=== PATIENT | male | born 1940 | race Caucasian/White ===

== ENCOUNTER → 2017-08-03 11:33 | Outpatient (CLI) | payer MEDICARE, SELFPAY ==
[2017-08-03 13:42] LABS: Basophils # 0.1 K/mm3 (0-0.2); Basophils % 0.6 % (0.1-2.0); Eosinophils # 0.1 K/mm3 (0.0-0.4); Eosinophils % 1.3 % (0.1-12.0); Hematocrit 24.3 % (42.0-52.0); Lymphocytes # 0.4 K/mm3 (0.7-4.5); Mean Corpuscular HGB Conc 31.4 g/dL (31.8-35.4); Mean Corpuscular Hemoglobin 30.5 pg (27.0-31.2); Mean Corpuscular Volume 97.3 fl (80-94); Mean Platelet Volume 7.2 fl (7.4-10.4); Monocytes # 0.5 K/mm3 (0.1-1.0); Monocytes % 5.5 % (1.7-9.3); Neutrophils # 7.7 K/mm3 (1.8-7.8); Neutrophils % 87.6 % (37.0-80.0); Platelet Count 431 K/mm3 (142-424); Red Cell Distribution Width 20.2 % (11.5-17.5); White Blood Count 8.8 K/mm3 (4.8-10.8)
[2017-08-03 13:45] LABS: Hemoglobin 7.6 g/dL (14.1-18.0)
[2017-08-03 13:46] LABS: MANUAL DIFFERENTIAL MANUAL DIFFERENTIAL (MANUAL DIFF)
[2017-08-03 15:37] LABS: Lymphocytes % 2 % (10-50); Monocytes % 13 % (2-9); Neutrophils % 82 % (42-76); Total Cells Counted 100
[2017-08-03 15:41] LABS: Anisocytosis 2+; Hypochromasia 1+; Macrocytosis 1+; Platelet Estimate Slight Increase
[2017-08-03 16:42] LABS: Alanine Aminotransferase 24 U/L (12-78); Albumin/Globulin Ratio 0.8 (1.1-1.8); Alkaline Phosphatase 162 U/L (46-116); Anion Gap 11.6 mEq/L (5-15); Aspartate Amino Transferase 24 U/L (15-37); Bilirubin,Total 0.4 mg/dL (0.2-1.0); Blood Urea Nitrogen 23 mg/dL (7-18); Calcium 7.5 mg/dL (8.5-10.1); Carbon Dioxide 23 mmol/L (21.0-32.0); Chloride 102 mmol/L (98-107); Creatinine,Serum 1.55 mg/dL (0.70-1.30); Estimated Glomerular Filt Rate 44 ml/min (>60); GFR (African American) 53 ML/MIN (>60); Globulin 2.4 gm/dl (1.3-3.2); Glucose 157 mg/dL (74-106); Potassium 4.6 mmoL/L (3.5-5.1); Sodium 132 mmol/L (136-145); Total Protein,Serum 4.4 gm/dL (6.4-8.2)
== END ==
PROVIDERS: PCP Internal Medicine Adolescent Medicine; Visit Provider Internal Medicine Adolescent Medicine
DX: R42 Dizziness and giddiness (principal)
CPT/HCPCS: 36415; 80053; 85007; 85025

== ENCOUNTER → 2017-08-04 08:30 | Outpatient (CLI) | payer MEDICARE, SELFPAY ==
[2017-08-04] VITALS (20 sets, daily range): BP systolic 87–106; BP diastolic 43–61; PULSE 67–78; RESP 12–72; TEMP 36.1–36.9; O2SAT 97–98; BMI 23.5
--- NOTE | 2017-08-04 17:06 | PC.NURSE ---
Blood Administration Vital Signs Start 1430 5 minutes 1435 10 minutes 1440 15 minutes 1445 30 minutes 1500 45 minutes 1515 60 minutes 1530 Completion 1600 See vital signs assessment for blood administration vital signs. Records would not save to TAR. per Elfego MENDOZA
[2017-08-04 17:07] LABS: Hematocrit 26.1 % (42.0-52.0); Hemoglobin 8.3 g/dL (14.1-18.0)
--- NOTE | 2017-08-04 17:14 | PC.NURSE ---
Documented all the vitals signs on the first unit. I did not go into the tar and push the end button to end the first unit of blood. Verified the second unit with Adelaida Zambrano. Then started to document the vitals on the second unit. Was able to put in pre and all the first hour of the vitals of the second unit. I then noticed that it did not save the verification on that second unit. i then verified for the second and then again a third time and the verfication never saved. Also noted that the pre and vitals 5 thru one hour were placed also on the first unit vitals as well as listed under the second unit where i documented that.
== END ==
PROVIDERS: PCP Internal Medicine Adolescent Medicine; Visit Provider Nurse Practitioner Family
DX: C85.93 Non-Hodgkin lymphoma, unspecified, intra-abdominal lymph nodes; D63.0 Anemia in neoplastic disease
CPT/HCPCS: 36430; 85014; 85018; 86850; P9016

== ENCOUNTER → 2017-08-16 10:08 | Outpatient (CLI) | payer MEDICARE, SELFPAY ==
[2017-08-16 13:29] LABS: Alanine Aminotransferase 21 U/L (12-78); Albumin Level 2.3 gm/dL (3.4-5.0); Albumin/Globulin Ratio 0.9 (1.1-1.8); Alkaline Phosphatase 168 U/L (46-116); Anion Gap 14.9 mEq/L (5-15); Aspartate Amino Transferase 24 U/L (15-37); Bilirubin,Total 0.4 mg/dL (0.2-1.0); Blood Urea Nitrogen 36 mg/dL (7-18); Calcium 7.9 mg/dL (8.5-10.1); Carbon Dioxide 20 mmol/L (21.0-32.0); Chloride 103 mmol/L (98-107); Creatinine,Serum 1.72 mg/dL (0.70-1.30); Estimated Glomerular Filt Rate 39 ml/min (>60); GFR (African American) 47 ML/MIN (>60); Globulin 2.5 gm/dl (1.3-3.2); Glucose 241 mg/dL (74-106); Potassium 3.9 mmoL/L (3.5-5.1); Sodium 134 mmol/L (136-145); Total Protein,Serum 4.8 gm/dL (6.4-8.2)
[2017-08-16 13:30] LABS: Basophils % 0.4 % (0.1-2.0); Eosinophils # 0.1 K/mm3 (0.0-0.4); Eosinophils % 2.3 % (0.1-12.0); Hematocrit 26.6 % (42.0-52.0); Hemoglobin 8.3 g/dL (14.1-18.0); Lymphocytes # 0.8 K/mm3 (0.7-4.5); Lymphocytes % 14.3 K/mm3 (10-50); Mean Corpuscular HGB Conc 31.1 g/dL (31.8-35.4); Mean Corpuscular Hemoglobin 30.8 pg (27.0-31.2); Mean Platelet Volume 7.6 fl (7.4-10.4); Monocytes # 0.5 K/mm3 (0.1-1.0); Monocytes % 8.8 % (1.7-9.3); Neutrophils # 4.2 K/mm3 (1.8-7.8); Neutrophils % 74.2 % (37.0-80.0); Platelet Count 298 K/mm3 (142-424); Red Blood Count 2.69 M/mm3 (4.60-6.20); Red Cell Distribution Width 18.3 % (11.5-17.5); White Blood Count 5.7 K/mm3 (4.8-10.8)
== END ==
PROVIDERS: PCP Nurse Practitioner Family; Visit Provider Nurse Practitioner Family
DX: R42 Dizziness and giddiness (principal); R06.02 Shortness of breath
CPT/HCPCS: 36415; 80053; 85025

== ENCOUNTER 2017-08-17 08:30 | Outpatient (CLI) | payer MEDICARE, SELFPAY ==
[2017-08-17] VITALS (19 sets, daily range): BP systolic 91–118; BP diastolic 44–58; PULSE 75–88; RESP 18–20; TEMP 36.7–36.8; O2SAT 97–98; BMI 23.5
== END 2017-08-17 15:40 | disposition home or self-care (01) ==
PROVIDERS: PCP Internal Medicine Adolescent Medicine; Visit Provider Nurse Practitioner Family
DX: D64.9 Anemia, unspecified (principal)
CPT/HCPCS: 36430; 85014; 85018; 86850; P9016

== ENCOUNTER 2017-08-24 07:15 | Day surgery (SDC) | payer MEDICARE, SELFPAY ==
[2017-08-17 08:41] VITALS: BMI 23.5
[2017-08-23 11:07] VITALS: BMI 23.8
[2017-08-24 07:46] VITALS: BP 99/66; PULSE 65; RESP 18; TEMP 36.4; O2SAT 99
[2017-08-24 08:00] LABS: POC Glucose,Bedside 140 mg/dL
--- NOTE | 2017-08-24 08:14 | HMH.ANESCL ---
[facility] Anesthesia Checklist - Patient Identification Patient Identification: Arm Band, Verbal (Name & ) - Structural Data Admitted From: Home Planned Operative Procedure/s: excision lession nose, ear Consent for Planned Operative Procedure(s) Verified: Yes Verified Documents: Surgical Consent - NPO Status Verified Time NPO: 00:00 - Chart Verification Results Verified: CBC, BMP - Additional verifications Patient : No Anesthesia Reactions: No Hx Blood Transfusions: No Blood Transfusion Reaction: No Cephalosporin Allergy: No Previous Colonoscopy: No - Cardiovascular Assessment Heart Sounds: S1 & S2 Pulse Strength: Strong Pulse Rhythm: Regular Peripheral Edema: No - Airway Assessment C-Spine Mobility Assessed: Yes TMJ Mobility Assessed: Yes Dentition: Edentulous - Neurological Assessment Level of Consciousness: Awake, Alert, Appropriate Hx Seizures: No Numbness or tingling in extremities: No - Anesthesia Plan Anesthesia Risk discussed: Yes ASA Class: III Anesthesia Type: MAC [facility] Anesthesia HX I have reviewed the patient's past medical history: Yes Medical History: Reports:: Cancer (Lymphoma), Coronary Artery Disease, Diabetes Mellitus Type 2, Gastroesophageal Reflux Disease(GERD), Hyperlipidemia, Myocardial Infarction, Osteoporosis Denies:: Diabetes Mellitus Type 1, Internal Pacemaker, Seizures Other Medical History: Reports: Chemotherapy, Osteoporosis. Denies: Blood Transfusion Reaction Laterality Cases: Left: Arthroscopy Knee, Bilateral: Other Other Surgeries: Yes: Cancer Surgery, Colonoscopy, Coronary Stent, Other. No: Pacemaker Amputation: No Fractures: No Comment: knee scope *Family Hx:: Coronary Artery Disease, Cancer, Heart Attack, Hypertension
[2017-08-24 10:00] VITALS: BP 92/53; PULSE 70; RESP 18; TEMP 36.6; O2SAT 99
[2017-08-24 10:15] VITALS: BP 100/57; PULSE 66; RESP 18; TEMP 36.6; O2SAT 100
[2017-08-24 10:30] VITALS: BP 107/56; PULSE 60; RESP 18; TEMP 36.6; O2SAT 99
[2017-08-24 10:40] VITALS: BP 105/57; PULSE 64; RESP 18; TEMP 36.6; O2SAT 100
--- NOTE | 2017-08-24 14:00 | HMH.OPNOTE ---
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 2. Excision of Malignant neoplasm upper nose 3. Cryo Surgery actinic keratosis left ear Surgeon:: Jim Gomez MD [employer]CH MANAGER:: Sheldon Degroot Anesthesia: MAC Estimated blood loss (mL): 2 Operative findings:: With the patient under MAC type anesthesia the face was prepped and draped, the perilesional areas on the nose and left ear were infiltrated with a total of 5 cc of 2% lidocaine containing epinephrine. The lesion on the upper part of the nose was marked out it measured 2.9 cm. The markup was incised the lesion was excised and submitted, anterior and inferior incisions were made, flaps were elevated and the tissue rearrangement was done with interrupted 4-0 nylon sutures. Bleeding was stopped with bipolar cautery. The lesion the lower part of the nose was marked out it measured 1.5 cm. The Markup was incised and the lesion was excised and submitted. Tissue rearrangement Z-plasty repair was done with interrupted 4-0 nylon sutures after flaps were developed.. The lesion on the left ear had the appearance of an actinic keratosis. It measured 2.5 cm. The lesion was totally ablated using cryo surgery. Dressings were applied and the patient was sent to recovery in good general condition. Pathology: other (as above) Condition: stable Disposition: same day Complications:: none
--- NOTE | 2017-08-24 14:05 | P.OP_ITS ---
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 2. Excision of Malignant neoplasm upper nose 3. Cryo Surgery actinic keratosis left ear Surgeon:: Jim Gomez MD [employer] LOAN PROCESSOR:: Sheldon Degroot Anesthesia: MAC Estimated blood loss (mL): 2 Operative findings:: With the patient under MAC type anesthesia the face was prepped and draped, the perilesional areas on the nose and left ear were infiltrated with a total of 5 cc of 2% lidocaine containing epinephrine. The lesion on the upper part of the nose was marked out it measured 2.9 cm. The markup was incised the lesion was excised and submitted, anterior and inferior incisions were made, flaps were elevated and the tissue rearrangement was done with interrupted 4-0 nylon sutures. Bleeding was stopped with bipolar cautery. The lesion the lower part of the nose was marked out it measured 1.5 cm. The Markup was incised and the lesion was excised and submitted. Tissue rearrangement Z-plasty repair was done with interrupted 4-0 nylon sutures after flaps were developed.. The lesion on the left ear had the appearance of an actinic keratosis. It measured 2.5 cm. The lesion was totally ablated using cryo surgery. Dressings were applied and the patient was sent to recovery in good general condition. Pathology: other (as above) Condition: stable Disposition: same day Complications:: none
== END 2017-08-24 10:40 | disposition home or self-care (01) ==
LOC: OR 07:22
PROVIDERS: PCP Internal Medicine Adolescent Medicine; Visit Provider Otolaryngology
PROC: (CPT 14040; principal; 2017-08-24 09:00)
DX: C44.321 Squamous cell carcinoma of skin of nose (principal); E11.9 Type 2 diabetes mellitus without complications
CPT/HCPCS: 14040; 14060; 82962; 88305; 96374

== ENCOUNTER 2017-09-08 20:55 | Inpatient (IN) | payer MEDICARE, SELFPAY ==
[2017-09-08 21:00] VITALS: BP 121/83; PULSE 91; RESP 22; TEMP 37.3; O2SAT 95; BMI 26.7
--- NOTE | 2017-09-08 21:35 | XR_ITS ---
XR chest 2V HISTORY: ITS.REASON: SOB ORDERING PHYSICIAN: Edilberto Rivera MD PATIENT AGE: 77 years COMPARISON: 04/27/2017 FINDINGS: The cardiomediastinal silhouette and pulmonary vascularity are within normal limits. There is coronary artery stent present and there are surgical clips in right axilla There is been interval development of diffuse prominence of the interstitium with patchy alveolar density in both lower lobes. There are small bilateral pleural effusions. No acute bony abnormalities. IMPRESSION: Interval development of diffuse prominence of the interstitium with patchy alveolar disease and small bilateral effusions in the setting of a normal heart size suggesting bilateral pneumonia. Acute cardiac decompensation or acute volume overload is an additional consideration.
[2017-09-08 21:40] LABS: Basophils % 0.3 % (0.1-2.0); Eosinophils # 0.1 K/mm3 (0.0-0.4); Eosinophils % 2.3 % (0.1-12.0); Hemoglobin 9.5 g/dL (14.1-18.0); Lymphocytes # 0.6 K/mm3 (0.7-4.5); Lymphocytes % 11.4 K/mm3 (10-50); Mean Corpuscular HGB Conc 31.9 g/dL (31.8-35.4); Mean Corpuscular Hemoglobin 30.7 pg (27.0-31.2); Mean Corpuscular Volume 96.2 fl (80-94); Mean Platelet Volume 7.6 fl (7.4-10.4); Monocytes # 0.4 K/mm3 (0.1-1.0); Monocytes % 7.7 % (1.7-9.3); Neutrophils # 3.9 K/mm3 (1.8-7.8); Neutrophils % 78.4 % (37.0-80.0); Platelet Count 274 K/mm3 (142-424); Red Blood Count 3.08 M/mm3 (4.60-6.20); Red Cell Distribution Width 16.6 % (11.5-17.5)
[2017-09-08 21:42] LABS: Hematocrit 29.7 % (42.0-52.0)
[2017-09-08 21:52] LABS: Lactic Acid 1.2 mmol/L (0.4-2.0)
[2017-09-08 22:08] LABS: Anion Gap 13.1 mEq/L (5-15); Blood Urea Nitrogen 19 mg/dL (7-18); Carbon Dioxide 26 mmol/L (21.0-32.0); Chloride 102 mmol/L (98-107); Creatine Kinase 87 U/L (39-308); Creatinine Clearance Estimated 49 mL/min (0-300); Creatinine,Serum 1.45 mg/dL (0.70-1.30); Estimated Glomerular Filt Rate 47 ml/min (>60); GFR (African American) 57 ML/MIN (>60); Glucose 149 mg/dL (74-106); Potassium 4.1 mmoL/L (3.5-5.1); Sodium 137 mmol/L (136-145); Troponin I 0.08 ng/ml (0.00-0.06)
[2017-09-08 22:09] LABS: CKMB Relative Index 0.6 U/L (0-4.0); Creatine Kinase MB < 0.5 mg/ml (0.0-3.6)
[2017-09-08 22:27] VITALS: BP 94/57; PULSE 90; RESP 16; O2SAT 95
--- NOTE | 2017-09-08 22:31 | HMH.EDSOB ---
ED Disposition Clinical Impression: Renal insufficiency Community acquired pneumonia Qualifiers: Laterality: unspecified laterality Qualified Code(s): J18.9 - Pneumonia, unspecified organism Anemia Qualifiers: Anemia type: unspecified type Qualified Code(s): D64.9 - Anemia, unspecified Disposition: Admitted as Observation Condition on Discharge: Good Referrals: Jose Ramon Mejias MD [Primary Care Provider] - - Critical Care Critical Care Time: No Attestation: On 09/08/17, the high probability of a clinically significant, sudden or life threatening deterioration of the following system(s) required my full and direct attention, intervention and personal management. The time I documented below is in addition to time spent performing reported procedures but includes the following listed in this critical care notation. Medical Decision Making - Medical Records Medical records reviewed: Yes: I reviewed the patient's medical records. Vital Signs: 09/08/17 21:00 Temperature 99.2 F Temperature Source Oral Pulse Rate [Right Radial] 91 H Respiratory Rate 22 Blood Pressure [Right Arm] 121/83 Blood Pressure Mean [Right Arm] 95 Blood Pressure Source [Right Arm] Automatic Cuff Blood Pressure Position [Right Arm] Sitting 02 Sat by Pulse Oximetry 95 Oxygen Delivery Method Room Air - Lab Data Lab results reviewed: Yes: I reviewed the patient's lab results. Lab Results 09/08/17 21:15: WBC 5.0, RBC 3.08 L, Hgb 9.5 L, Hct 29.7 L, MCV 96.2 H, MCH 30.7, MCHC 31.9, RDW 16.6, Plt Count 274, MPV 7.6, Neut % (Auto) 78.4, Lymph % (Auto) 11.4, [place] % (Auto) 7.7, Eos % (Auto) 2.3, Baso % (Auto) 0.3, Neut # (Auto) 3.9, Lymph # (Auto) 0.6 L, [place] # (Auto) 0.4, Eos # (Auto) 0.1, Baso # (Auto) 0.0 09/08/17 21:15: Sodium 137, Potassium 4.1, Chloride 102, Carbon Dioxide 26, Anion Gap 13.1, BUN 19 H, Creatinine 1.45 H, Estimated Creat Clear 49, Estimated GFR 47 L, Est GFR ( Amer) 57 L, Glucose 149 H, Total Creatine Kinase 87, CK-MB (CK-2) < 0.5, CK-MB (CK-2) Rel Index 0.6, Troponin I 0.08 H 09/08/17 21:15: Lactic Acid 1.2 Result diagrams: 09/08/17 21:15 09/08/17 21:15 Orders (Tests/Meds): ED MEDICATIONS Discontinued Medications Generic Name Dose Route Start Last Admin Trade Name Janett PRN Reason Stop Dose Admin Albuterol/Ipratropium 3 ml 09/08/17 21:16 09/08/17 21:18 Duoneb 3ml Neb IH 09/08/17 21:17 3 ml ONCE ONE Administration Methylprednisolone Sodium Succinate 125 mg 09/08/17 21:13 09/08/17 21:18 Solu-Medrol 125mg/2ml Vial IV 09/08/17 21:14 125 mg ONCE ONE Administration ORDERS Category Date Time Status XR chest 2V Stat Exams 09/08/17 21:35 Taken Blood Culture Stat Micro 09/08/17 21:15 Received - Radiology Data #1 Image(s): Chest Image Reviewed: Yes I reviewed the patient's radiology image Preliminary Findings: Abnormal (cap) - ECG Data Tracing #1 I reviewed this ECG and interpreted as documented below: Normal Sinus Rhythm: Yes Ischemic changes: non-specific ST-T wave changes - [place] Inquiry Pt receiving controlled substance: No Resp/SOB HPI - General Chief Complaint: Shortness of Breath/Dyspnea Stated Complaint: SOB Time Seen by Provider: 09/08/17 22:31 Mode of Arrival: Ambulatory Source of Information: Patient, Medical Record Limitations: No Limitations Description of Symptoms (Recalled from ER Triage Doc. by RN): started this afternoon with sob and wheezing, cough, right chest pain - History of Present Illness MD Complaint: shortness of breath, pain with inspiration Onset (ago): day(s) Severity: moderate Consistency/Duration: intermittent - Related Data Home Medications Medication Instructions Recorded Confirmed Aspirin [Aspir 81] 81 mg PO DAILY 08/04/17 09/08/17 Atorvastatin Calcium [Atorvastatin 80 mg PO HS 08/04/17 09/08/17 80mg Tab] Gabapentin [Gabapentin 300mg Cap] 300 mg PO TID 08/04/17 09/08/17 Ondansetron HCl
--- NOTE | 2017-09-08 22:37 | ED_ITS ---
ED Disposition Clinical Impression: Renal insufficiency Community acquired pneumonia Qualifiers: Laterality: unspecified laterality Qualified Code(s): J18.9 - Pneumonia, unspecified organism Anemia Qualifiers: Anemia type: unspecified type Qualified Code(s): D64.9 - Anemia, unspecified Disposition: Admitted as Observation Condition on Discharge: Good Referrals: Jose Ramon Mejias MD [Primary Care Provider] - - Critical Care Critical Care Time: No Attestation: On 09/08/17, the high probability of a clinically significant, sudden or life threatening deterioration of the following system(s) required my full and direct attention, intervention and personal management. The time I documented below is in addition to time spent performing reported procedures but includes the following listed in this critical care notation. Medical Decision Making - Medical Records Medical records reviewed: Yes: I reviewed the patient's medical records. Vital Signs: 09/08/17 21:00 Temperature 99.2 F Temperature Source Oral Pulse Rate [Right Radial] 91 H Respiratory Rate 22 Blood Pressure [Right Arm] 121/83 Blood Pressure Mean [Right Arm] 95 Blood Pressure Source [Right Arm] Automatic Cuff Blood Pressure Position [Right Arm] Sitting 02 Sat by Pulse Oximetry 95 Oxygen Delivery Method Room Air - Lab Data Lab results reviewed: Yes: I reviewed the patient's lab results. Lab Results 09/08/17 21:15: WBC 5.0, RBC 3.08 L, Hgb 9.5 L, Hct 29.7 L, MCV 96.2 H, MCH 30.7 , MCHC 31.9, RDW 16.6, Plt Count 274, MPV 7.6, Neut % (Auto) 78.4, Lymph % (Auto ) 11.4, [place] % (Auto) 7.7, Eos % (Auto) 2.3, Baso % (Auto) 0.3, Neut # (Auto) 3.9, Lymph # (Auto) 0.6 L, [place] # (Auto) 0.4, Eos # (Auto) 0.1, Baso # (Auto) 0.0 09/08/17 21:15: Sodium 137, Potassium 4.1, Chloride 102, Carbon Dioxide 26, Anion Gap 13.1, BUN 19 H, Creatinine 1.45 H, Estimated Creat Clear 49, Estimated GFR 47 L, Est GFR ( Amer) 57 L, Glucose 149 H, Total Creatine Kinase 87, CK-MB (CK-2) < 0.5, CK-MB (CK-2) Rel Index 0.6, Troponin I 0.08 H 09/08/17 21:15: Lactic Acid 1.2 Result diagrams: 09/08/17 21:15 09/08/17 21:15 Orders (Tests/Meds): ED MEDICATIONS Discontinued Medications Generic Name Dose Route Start Last Admin Trade Name Freq PRN Reason Stop Dose Admin Albuterol/Ipratropium 3 ml 09/08/17 21:16 09/08/17 21:18 Duoneb 3ml Neb IH 09/08/17 21:17 3 ml ONCE ONE Administration Methylprednisolone Sodium Succinate 125 mg 09/08/17 21:13 09/08/17 21:18 Solu-Medrol 125mg/2ml Vial IV 09/08/17 21:14 125 mg ONCE ONE Administration ORDERS Category Date Time Status XR chest 2V Stat Exams 09/08/17 21:35 Taken Blood Culture Stat Micro 09/08/17 21:15 Received - Radiology Data #1 Image(s): Chest Image Reviewed: Yes I reviewed the patient's radiology image Preliminary Findings: Abnormal (cap) - ECG Data Tracing #1 I reviewed this ECG and interpreted as documented below: Normal Sinus Rhythm: Yes Ischemic changes: non-specific ST-T wave changes - [place] Inquiry Pt receiving controlled substance: No Resp/SOB HPI - General Chief Complaint: Shortness of Breath/Dyspnea Stated Complaint: SOB Time Seen by Provider: 09/08/17 22:31 Mode of Arrival: Ambulatory
[2017-09-08 23:38] VITALS: PULSE 86; O2SAT 96
[2017-09-08 23:51] VITALS: BP 110/81; PULSE 85; RESP 20; TEMP 37.2; O2SAT 96
[2017-09-09] VITALS (10 sets, daily range): BP systolic 107–127; BP diastolic 53–75; PULSE 77–98; RESP 20–22; TEMP 36.2–37; O2SAT 93–97; BMI 25.3
[2017-09-09 06:35] LABS: POC Glucose,Bedside 280 mg/dL
[2017-09-09 06:56] LABS: Eosinophils % 0.2 % (0.1-12.0); Hematocrit 29.4 % (42.0-52.0); Hemoglobin 9.3 g/dL (14.1-18.0); Lymphocytes # 0.2 K/mm3 (0.7-4.5); Lymphocytes % 3.8 K/mm3 (10-50); Mean Corpuscular HGB Conc 31.6 g/dL (31.8-35.4); Mean Corpuscular Hemoglobin 30.8 pg (27.0-31.2); Mean Corpuscular Volume 97.3 fl (80-94); Mean Platelet Volume 8.2 fl (7.4-10.4); Monocytes # 0.2 K/mm3 (0.1-1.0); Monocytes % 3.3 % (1.7-9.3); Neutrophils # 4.2 K/mm3 (1.8-7.8); Neutrophils % 92.8 % (37.0-80.0); Platelet Count 235 K/mm3 (142-424); Red Blood Count 3.02 M/mm3 (4.60-6.20); Red Cell Distribution Width 16.4 % (11.5-17.5); White Blood Count 4.5 K/mm3 (4.8-10.8)
[2017-09-09 07:00] LABS: MANUAL DIFFERENTIAL MANUAL DIFFERENTIAL (MANUAL DIFF)
[2017-09-09 07:14] LABS: Anion Gap 16.4 mEq/L (5-15); Blood Urea Nitrogen 19 mg/dL (7-18); Carbon Dioxide 22 mmol/L (21.0-32.0); Chloride 103 mmol/L (98-107); Creatinine Clearance Estimated 42 mL/min (0-300); Estimated Glomerular Filt Rate 39 ml/min (>60); GFR (African American) 48 ML/MIN (>60); Glucose 279 mg/dL (74-106); Potassium 4.4 mmoL/L (3.5-5.1); Sodium 137 mmol/L (136-145); Troponin I 0.04 ng/ml (0.00-0.06)
[2017-09-09 07:40] LABS: Lymphocytes % 4 % (10-50); Monocytes % 2 % (2-9); Neutrophils % 93 % (42-76); Platelet Estimate Normal; Total Cells Counted 100
[2017-09-09 07:41] LABS: Anisocytosis 1+; Hypochromasia 1+
--- NOTE | 2017-09-09 08:30 | HMH.HP ---
*Admission Date: 09/08/17 *Chief complaint: Cough and shortness of breath *History of present illness: 77 yr old male with h/o CAD, DM and lymphoma presented to the ED last night due to increasing shortness of breath both at rest and with exertion. Reports onset about 24 hours ago and associated with cough and some low grade fevers. He tried some OTC cough medications but felt progressively worse through the day yesterday and decided to go to the ED. He was found to have bilateral lower lobe pneumonia and small effusions and was admitted for management. This morning he reports that he feels good but still feels short of breath and coughing. [facility] History Medical History: Reports:: Cancer, Coronary Artery Disease, Diabetes Mellitus Type 2, Gastroesophageal Reflux Disease(GERD), Heart Murmur, Hyperlipidemia, Hypertension, Myocardial Infarction, Osteoporosis Denies:: Diabetes Mellitus Type 1, MRSA, Seizures Other Medical History: Reports: Anemia, Chemotherapy, Osteoporosis. Denies: Blood Transfusion Reaction Laterality Cases: Bilateral: Other Other Surgeries: Yes: Cancer Surgery, Colonoscopy, Coronary Stent, Other Amputation: No Fractures: No - *Social History Educational Level: Completed High School Smoking Status: Never smoker Alcohol Intake: never Substance Use Type: denies use Occupational Status: disabled Housing: house Household Members: spouse - Psychiatric History Expresses thoughts of harming self/others: None Suicide Plan Description: No Plan *Family Hx:: Cancer, Coronary Artery Disease, Heart Attack, Hypertension Review of Systems - Review of Systems Review of systems:: pertinent systems reviewed and negative unless documented below - Constitutional Reports fever(s), Reports increased appetite, Denies fatigue - ENT Reports nosebleed Comments: healing surgical excision site right side of nose - *Cardiovascular Denies chest pain - *Gastrointestinal Denies change in bowel habits, Denies constipation, Denies vomiting - *Genitourinary Denies difficulty urinating - *Neurologic Denies seizure-like activity Meds Home Medications Medication Instructions Recorded Confirmed Type Aspirin [Aspir 81] 81 mg PO DAILY 08/04/17 09/08/17 History Atorvastatin Calcium [Atorvastatin 80 mg PO HS 08/04/17 09/08/17 History 80mg Tab] Gabapentin [Gabapentin 300mg Cap] 300 mg PO TID 08/04/17 09/08/17 History Ondansetron HCl [Ondansetron 8mg 8 mg PO NEEDED PRN 08/04/17 09/08/17 History Tab] Spironolactone [Spironolactone 50 mg PO DAILY 08/04/17 09/08/17 History 50mg Tab] Ticagrelor [Brilinta 90mg Tablet] 90 mg PO BID 08/04/17 09/08/17 History allopurinol 100 mg tablet 100 mg PO QDAY 08/22/17 09/08/17 History sitagliptin 25 mg tablet 25 mg PO QDAY 08/22/17 09/08/17 History Allergies Allergy/AdvReac Type Severity Reaction Status Date / Time No Known Allergies Allergy Verified 08/14/17 13:11 Exam Vital signs and Labs for Last 24 Hours: Temp Pulse Resp BP Pulse Ox 98.0 F 94 H 20 107/53 95 09/09/17 07:46 09/09/17 07:46 09/09/17 07:46 09/09/17 07:46 09/09/17 07:46 Laboratory Results - last 24 hr 09/09/17 06:28: POC Glucose 280 09/09/17 06:40: WBC 4.5 L, RBC 3.02 L, Hgb 9.3 L, Hct 29.4 L, MCV 97.3 H, MCH 30.8, MCHC 31.6 L, RDW 16.4, Plt Count 235, MPV 8.2, Neut % (Auto) 92.8 H, Lymph % (Auto) 3.8 L, [place] % (Auto) 3.3, Eos % (Auto) 0.2, Baso % (Auto) 0.0 L, Neut # (Auto) 4.2, Lymph # (Auto) 0.2 L, [place] # (Auto) 0.2, Eos # (Auto) 0.0, Baso # (Auto) 0.0, Total Counted 100, Neutrophils % (Manual) 93 H, Lymphocytes % (Manual) 4 L, Monocytes % (Manual) 2, Metamyelocytes % 1.0, Platelet Estimate Normal, Hypochromasia 1+, Anisocytosis 1+ 09/09/17 06:40: Sodium 137, Potassium 4.4, Chloride 103, Carbon Dioxide 22, Anion Gap 16.4 H, BUN 19 H, Creatinine 1.70 H, Estimated Creat Clear 42, Estimated GFR 39 L, Est GFR ( Amer) 48 L, Glucose 279 H D, Troponin I 0.04 I & O for Last 24 demetrio
--- NOTE | 2017-09-09 08:34 | P.HP_ITS ---
*Admission Date: 09/08/17 *Chief complaint: Cough and shortness of breath *History of present illness: 77 yr old male with h/o CAD, DM and lymphoma presented to the ED last night due to increasing shortness of breath both at rest and with exertion. Reports onset about 24 hours ago and associated with cough and some low grade fevers. He tried some OTC cough medications but felt progressively worse through the day yesterday and decided to go to the ED. He was found to have bilateral lower lobe pneumonia and small effusions and was admitted for management. This morning he reports that he feels good but still feels short of breath and coughing. [facility] History Medical History: Reports:: Cancer, Coronary Artery Disease, Diabetes Mellitus Type 2, Gastroesophageal Reflux Disease(GERD), Heart Murmur, Hyperlipidemia, Hypertension, Myocardial Infarction, Osteoporosis Denies:: Diabetes Mellitus Type 1, MRSA, Seizures Other Medical History: Reports: Anemia, Chemotherapy, Osteoporosis. Denies: Blood Transfusion Reaction Laterality Cases: Bilateral: Other Other Surgeries: Yes: Cancer Surgery, Colonoscopy, Coronary Stent, Other Amputation: No Fractures: No - *Social History Educational Level: Completed High School Smoking Status: Never smoker Alcohol Intake: never Substance Use Type: denies use Occupational Status: disabled Housing: house Household Members: spouse - Psychiatric History Expresses thoughts of harming self/others: None Suicide Plan Description: No Plan *Family Hx:: Cancer, Coronary Artery Disease, Heart Attack, Hypertension Review of Systems - Review of Systems Review of systems:: pertinent systems reviewed and negative unless documented below - Constitutional Reports fever(s), Reports increased appetite, Denies fatigue - ENT Reports nosebleed Comments: healing surgical excision site right side of nose - *Cardiovascular Denies chest pain - *Gastrointestinal Denies change in bowel habits, Denies constipation, Denies vomiting - *Genitourinary Denies difficulty urinating - *Neurologic Denies seizure-like activity Meds Home Medications Medication Instructions Recorded Confirmed Type Aspirin [Aspir 81] 81 mg PO DAILY 08/04/17 09/08/17 History Atorvastatin Calcium [Atorvastatin 80 mg PO HS 08/04/17 09/08/17 History 80mg Tab] Gabapentin [Gabapentin 300mg Cap] 300 mg PO TID 08/04/17 09/08/17 History Ondansetron HCl [Ondansetron 8mg 8 mg PO NEEDED PRN 08/04/17 09/08/17 History Tab] Spironolactone [Spironolactone 50 mg PO DAILY 08/04/17 09/08/17 History 50mg Tab] Ticagrelor [Brilinta 90mg Tablet] 90 mg PO BID 08/04/17 09/08/17 History allopurinol 100 mg tablet 100 mg PO QDAY 08/22/17 09/08/17 History sitagliptin 25 mg tablet 25 mg PO QDAY 08/22/17 09/08/17 History Allergies Allergy/AdvReac Type Severity Reaction Status Date / Time No Known Allergies Allergy Verified 08/14/17 13:11 Exam Vital signs and Labs for Last 24 Hours: Temp Pulse Resp BP Pulse Ox 98.0 F 94 H 20 107/53 95 09/09/17 07:46 09/09/17 07:46 09/09/17 07:46 09/09/17 07:46 09/09/17 07:46 Laboratory Results - last 24 hr 09/09/17 06:28: POC Glucose 280 09/09/17 06:40: WBC 4.5 L, RBC 3.02 L, Hgb 9.3 L, Hct 29.4 L, MCV 97.3 H, MCH 30.8, MCHC 31.6 L, RDW 16.4, Plt Count 235, MPV 8.2, Neut % (Auto) 92.8 H, Lymph % (Auto) 3.8 L, [place] % (Auto) 3.3, Eos % (Auto
[2017-09-09 10:00] LABS: Adenovirus,PCR Not Detected (NotDetected); Bordetella Pertussis Not Detected (NotDetected); Chlamydophila Pneumoniae, PCR Not Detected (NotDetected); Coronavirus 229E Not Detected (NotDetected); Coronavirus NL63 Not Detected (NotDetected); Coronavirus OC43 Not Detected (NotDetected); Coronovirus HKU1,PCR Not Detected (NotDetected); Human Metapneumovirus Not Detected (NotDetected); Influenza A, PCR Not Detected (NotDetected); Influenza AH1, 2009 Not Detected (NotDetected); Influenza AH1, PCR Not Detected (NotDetected); Influenza AH3,PCR Not Detected (NotDetected); Influenza B, PCR Not Detected (NotDetected); Mycoplasma Pneumoniae, PCR Not Detected (NotDected); Parainfluenza 1, PCR Not Detected (NotDetected); Parainfluenza 2, PCR Not Detected (NotDetected); Parainfluenza 3, PCR Not Detected (NotDetected); Parainfluenza 4, PCR Not Detected (NotDetected); Respiratory Syncytial Virus Not Detected (NotDetected); Rhinovirus/Enterovirus Not Detected (NotDetected)
--- NOTE | 2017-09-09 13:18 | HMH.PHAVTE ---
[facility] Pharmacy VTE Monitoring - Patient Demographics Admission date: 09/09/17 Report Date: 09/09/17 Time: 13:18 Allergies/Adverse Reactions: Patient Allergies No Known Allergies Allergy (Verified 08/14/17 13:11) Height: 1.78 m Weight: 80.2 kg Patient Problems: Current Active Problems Community acquired pneumonia (Acute) Renal insufficiency (Chronic) Pleural effusion (Acute) - VTE Risk Labs: VTE Related Lab Results Hgb 9.3 g/dL (14.1-18.0) L 09/09/17 06:40 Hct 29.4 % (42.0-52.0) L 09/09/17 06:40 Plt Count 235 K/mm3 (142-424) 09/09/17 06:40 BUN 19 mg/dL (7-18) H 09/09/17 06:40 Creatinine 1.70 mg/dL (0.70-1.30) H 09/09/17 06:40 Estimated Creat Clear 42 mL/min (0-300) 09/09/17 06:40 Was VTE Risk Assessment Performed: Yes VTE Score: 2 VTE Risk Level: Very Low Risk - Prophylaxis VTE Prophylaxis Ordered?: Yes Types of VTE Prophylaxis: TEDS Knee High Location of Applied Device: Bilateral Lower Extremeties
--- NOTE | 2017-09-09 15:55 | PC.NURSE ---
PT IS ALERT AND ORIENTED X3. FAMILY AT BEDSIDE. NO CHANGE IN CONDITION FROM PREVIOUS ASSESSMENT. VSS. IV IS PATENT, SECURE AND INFUSING IVF. NO COMPLAINTS VOICED. NO S/S OF DISTRESS NOTED. FALL PREVENTION EDUCATION COMPLETED, SAFETY MEASURES IN PLACE. WILL CONTINUE TO MONITOR.
[2017-09-09 16:27] LABS: POC Glucose,Bedside 332 mg/dL
[2017-09-09 16:27] LABS: POC Glucose,Bedside 213 mg/dL
[2017-09-09 20:30] LABS: POC Glucose,Bedside 243 mg/dL
[2017-09-10] VITALS (12 sets, daily range): BP systolic 110–128; BP diastolic 57–70; PULSE 78–104; RESP 20–22; TEMP 36.4–36.9; O2SAT 89–98
[2017-09-10 06:19] LABS: POC Glucose,Bedside 175 mg/dL
--- NOTE | 2017-09-10 06:40 | PC.NURSE ---
Resting in bed at this time. Patient called out one time this shift complaining of SOA. UPon arrival to room patient seen to be winded and wheezes heard. This nurse stayed with the patient and educated on breathing exercises. After approx 15 minutes patient calmed down and stated that he felt much better. NO sign or symptoms of distress noted at this time and no other complaints were voiced during this shift. Patient did get up in the night and walk down the hallway a little bit, stating that he just had to get up and move for a little bit.
[2017-09-10 07:24] LABS: Anion Gap 11.9 mEq/L (5-15); Blood Urea Nitrogen 21 mg/dL (7-18); Carbon Dioxide 26 mmol/L (21.0-32.0); Chloride 106 mmol/L (98-107); Creatinine Clearance Estimated 52 mL/min (0-300); Creatinine,Serum 1.36 mg/dL (0.70-1.30); Estimated Glomerular Filt Rate 51 ml/min (>60); GFR (African American) 62 ML/MIN (>60); Potassium 3.9 mmoL/L (3.5-5.1); Sodium 140 mmol/L (136-145)
[2017-09-10 07:27] LABS: Basophils % 0.1 % (0.1-2.0); Eosinophils % 0.6 % (0.1-12.0); Hematocrit 27.5 % (42.0-52.0); Hemoglobin 8.7 g/dL (14.1-18.0); Lymphocytes # 0.5 K/mm3 (0.7-4.5); Lymphocytes % 7.4 K/mm3 (10-50); Mean Corpuscular HGB Conc 31.4 g/dL (31.8-35.4); Mean Corpuscular Hemoglobin 30.3 pg (27.0-31.2); Mean Corpuscular Volume 96.4 fl (80-94); Mean Platelet Volume 7.7 fl (7.4-10.4); Monocytes # 0.4 K/mm3 (0.1-1.0); Monocytes % 6.1 % (1.7-9.3); Neutrophils # 5.6 K/mm3 (1.8-7.8); Neutrophils % 85.9 % (37.0-80.0); Platelet Count 291 K/mm3 (142-424); Red Blood Count 2.86 M/mm3 (4.60-6.20); Red Cell Distribution Width 16.8 % (11.5-17.5); White Blood Count 6.5 K/mm3 (4.8-10.8)
[2017-09-10 07:28] LABS: MANUAL DIFFERENTIAL MANUAL DIFFERENTIAL (MANUAL DIFF)
[2017-09-10 07:32] LABS: Glucose 184 mg/dL (74-106)
--- NOTE | 2017-09-10 07:32 | HMH.ACPN2 ---
Internal Medicine - PN: Subj *Date: 09/10/17 *Time: 07:32 Interval history: Patient does not feel any better compared to yesterday but feels no worse. He continues to feel short of breath. He is coughing up quite a bit of phlegm. He does not get much relief from the breathing treatments Exam Vital signs and Labs for Last 24 Hours: Temp Pulse Resp BP Pulse Ox 97.8 F 96 H 20 116/62 98 09/10/17 07:24 09/10/17 07:24 09/10/17 07:24 09/10/17 07:24 09/10/17 07:24 Laboratory Results - last 24 hr 09/09/17 06:40: Total Counted 100, Neutrophils % (Manual) 93 H, Lymphocytes % (Manual) 4 L, Monocytes % (Manual) 2, Metamyelocytes % 1.0, Platelet Estimate Normal, Hypochromasia 1+, Anisocytosis 1+ 09/09/17 09:58: Chlamy pneumoniae PCR Not detected, Adenovirus (PCR) Not detected, B.parapertussis DNA PCR Not detected, Coronavirus OC43 (PCR) Not detected, Coronavirus HKU1 (PCR) Not detected, Coronavirus 229E (PCR) Not detected, Coronavirus NL63 (PCR) Not detected, Human Metapneumovir PCR Not detected, Influenza A (H1) PCR Not detected, Influ A (H1N1/09) PCR Not detected, Influenza A (H3) PCR Not detected, Influenza Type A (PCR) Not detected, Influenza Type B (PCR) Not detected, M. pneumoniae (PCR) Not detected, Parainfluenza 1 (PCR) Not detected, Parainfluenza 2 (PCR) Not detected, Parainfluenza 3 (PCR) Not detected, Parainfluenza 4 (PCR) Not detected, RSV (PCR) Not detected, Entero/Rhino (PCR) Not detected 09/09/17 10:53: POC Glucose 332 09/09/17 16:17: POC Glucose 213 09/09/17 20:19: POC Glucose 243 09/10/17 06:11: POC Glucose 175 09/10/17 06:25: WBC 6.5 D, RBC 2.86 L, Hgb 8.7 L, Hct 27.5 L, MCV 96.4 H, MCH 30.3, MCHC 31.4 L, RDW 16.8, Plt Count 291, MPV 7.7, Neut % (Auto) 85.9 H, Lymph % (Auto) 7.4 L, [place] % (Auto) 6.1, Eos % (Auto) 0.6, Baso % (Auto) 0.1, Neut # (Auto) 5.6, Lymph # (Auto) 0.5 L, [place] # (Auto) 0.4, Eos # (Auto) 0.0, Baso # (Auto) 0.0 09/10/17 06:25: Sodium 140, Potassium 3.9, Chloride 106, Carbon Dioxide 26, Anion Gap 11.9, BUN 21 H, Creatinine 1.36 H, Estimated Creat Clear 52, Estimated GFR 51 L, Est GFR ( Amer) 62 D, Glucose 184 H D I & O for Last 24 hours: Intake & Output 09/07/17 09/08/17 09/09/17 09/10/17 11:59 11:59 11:59 11:59 Intake Total 1480 / 1480 Balance 1480 / 1480 Weight 176 lb 12.972 oz 176 lb 12.972 oz Microbiology Reports for the Last 24 Hours: Microbiology 09/09/17 Unknown Sputum - Expectorated Sputum Gram Stain - Final Narrative: He has scattered rhonchi and wheezes throughout all lung [place]. No focal rales. Heart has a regular rate and rhythm Assessment and Plan (1) Community acquired pneumonia Current visit: Yes Status: Acute Qualifiers: Laterality: unspecified laterality Qualified Code(s): J18.9 - Pneumonia, unspecified organism Category: Medical Code(s): J18.9 - Pneumonia, unspecified organism (2) Lymphoma Current visit: No Status: Chronic Category: Medical Code(s): C85.90 - Non-Hodgkin lymphoma, unspecified, unspecified site (3) Pleural effusion Current visit: Yes Status: Acute Category: Medical Code(s): J90 - Pleural effusion, not elsewhere classified (4) Anemia Current visit: No Status: Chronic Qualifiers: Anemia type: unspecified type Qualified Code(s): D64.9 - Anemia, unspecified Category: Medical Code(s): D64.9 - Anemia, unspecified (5) Renal insufficiency Current visit: Yes Status: Chronic Category: Medical Code(s): N28.9 - Disorder of kidney and ureter, unspecified (6) HTN (hypertension) Current visit: No Status: Chronic Category: Medical Code(s): I10 - Essential (primary) hypertension (7) Aortic valve stenosis Current visit: No Status: Chronic Category: Medical Code(s): I35.0 - Nonrheumatic aortic (valve) stenosis (8) CAD (coronary artery disease) Current visit: No Status: Chronic Category: Medical Code(s): I25.10 - Atherosclerotic heart disea
[2017-09-10 08:05] LABS: Lymphocytes % 2 % (10-50); Monocytes % 8 % (2-9); Neutrophils % 88 % (42-76); Platelet Estimate Normal; RBC Morphology Normal; Total Cells Counted 100
[2017-09-10 22:20] LABS: POC Glucose,Bedside 356 mg/dL
[2017-09-11] VITALS (11 sets, daily range): BP systolic 114–139; BP diastolic 57–88; PULSE 90–116; RESP 18–22; TEMP 36.5–37; O2SAT 91–99; BMI 24.9
--- NOTE | 2017-09-11 03:47 | PC.NURSE ---
no changes noted from previous assessment, pt has slept brief periods this shift, pt denies pain, states he is SOA on exertion, audible wheezing noted, rhonchi noted on auscultation, pt has persistent cough with thick yellow sputum, pt maintaining O2 sats at or above 90 on 2 l NC, vss, bowel soudns are active, abdomen is distended, no acute distress noted at this time, call light in reach, will continue to monitor.
[2017-09-11 06:32] LABS: POC Glucose,Bedside 222 mg/dL
[2017-09-11 07:10] LABS: Hematocrit 29.7 % (42.0-52.0); Hemoglobin 9.3 g/dL (14.1-18.0); Lymphocytes # 0.2 K/mm3 (0.7-4.5); Lymphocytes % 1.7 K/mm3 (10-50); Mean Corpuscular HGB Conc 31.4 g/dL (31.8-35.4); Mean Corpuscular Hemoglobin 30.6 pg (27.0-31.2); Mean Corpuscular Volume 97.3 fl (80-94); Mean Platelet Volume 7.6 fl (7.4-10.4); Monocytes # 0.4 K/mm3 (0.1-1.0); Monocytes % 2.8 % (1.7-9.3); Neutrophils # 12.2 K/mm3 (1.8-7.8); Neutrophils % 95.4 % (37.0-80.0); Platelet Count 320 K/mm3 (142-424); Red Blood Count 3.05 M/mm3 (4.60-6.20); Red Cell Distribution Width 16.6 % (11.5-17.5); White Blood Count 12.8 K/mm3 (4.8-10.8)
[2017-09-11 07:11] LABS: MANUAL DIFFERENTIAL MANUAL DIFFERENTIAL (MANUAL DIFF)
[2017-09-11 07:13] LABS: Anion Gap 13.5 mEq/L (5-15); Blood Urea Nitrogen 23 mg/dL (7-18); Carbon Dioxide 25 mmol/L (21.0-32.0); Chloride 104 mmol/L (98-107); Creatinine Clearance Estimated 56 mL/min (0-300); Creatinine,Serum 1.25 mg/dL (0.70-1.30); Estimated Glomerular Filt Rate 56 ml/min (>60); GFR (African American) 68 ML/MIN (>60); Glucose 219 mg/dL (74-106); Potassium 4.5 mmoL/L (3.5-5.1); Sodium 138 mmol/L (136-145)
--- NOTE | 2017-09-11 09:03 | P.PN_ITS ---
Internal Medicine - PN: Subj *Date: 09/11/17 *Time: 09:02 Interval history: Patient does not feel much better, especially when he lies down, not sleeping well which she attributes to steroids. Lots of rhonchi some bibasilar crackles, but no expiratory wheezing. Good air movement, heart rate regular without murmurs. Exam Vital signs and Labs for Last 24 Hours: Temp Pulse Resp BP Pulse Ox 97.7 F 100 H 22 126/72 96 09/11/17 08:00 09/11/17 08:00 09/11/17 08:00 09/11/17 08:00 09/11/17 08:00 Laboratory Results - last 24 hr 09/10/17 21:36: POC Glucose 356 09/11/17 06:05: WBC 12.8 H D, RBC 3.05 L, Hgb 9.3 L, Hct 29.7 L, MCV 97.3 H, MCH 30.6, MCHC 31.4 L, RDW 16.6, Plt Count 320, MPV 7.6, Neut % (Auto) 95.4 H, Lymph % (Auto) 1.7 L, [place] % (Auto) 2.8, Eos % (Auto) 0.0 L, Baso % (Auto) 0.0 L , Neut # (Auto) 12.2 H, Lymph # (Auto) 0.2 L, [place] # (Auto) 0.4, Eos # (Auto) 0.0, Baso # (Auto) 0.0 09/11/17 06:05: Sodium 138, Potassium 4.5, Chloride 104, Carbon Dioxide 25, Anion Gap 13.5, BUN 23 H, Creatinine 1.25, Estimated Creat Clear 56, Estimated GFR 56 L, Est GFR ( Amer) 68, Glucose 219 H 09/11/17 06:21: POC Glucose 222 I & O for Last 24 hours: Intake & Output 09/08/17 09/09/17 09/10/17 09/11/17 11:59 11:59 11:59 11:59 Intake Total 1480 / 1480 1358 / 1358 Balance 1480 / 1480 1358 / 1358 Weight 176 lb 12.972 oz 176 lb 12.972 oz 174 lb 5 oz Microbiology Reports for the Last 24 Hours: Microbiology 09/09/17 Unknown Sputum - Expectorated Sputum Gram Stain - Final Assessment and Plan (1) Community acquired pneumonia Current visit: Yes Status: Acute Qualifiers: Laterality: unspecified laterality Qualified Code(s): J18.9 - Pneumonia, unspecified organism Category: Medical Code(s): J18.9 - Pneumonia, unspecified organism (2) Lymphoma Current visit: No Status: Chronic Category: Medical Code(s): C85.90 - Non- Hodgkin lymphoma, unspecified, unspecified site (3) Pleural effusion Current visit: Yes Status: Acute Category: Medical Code(s): J90 - Pleural effusion, not elsewhere classified (4) Anemia Current visit: No Status: Chronic Qualifiers: Anemia type: unspecified type Qualified Code(s): D64.9 - Anemia, unspecified Category: Medical Code(s): D64.9 - Anemia, unspecified (5) Renal insufficiency Current visit: Yes Status: Chronic Category: Medical Code(s): N28.9 - Disorder of kidney and ureter, unspecified (6) HTN (hypertension) Current visit: No Status: Chronic Category: Medical Code(s): I10 - Essential (primary) hypertension (7) Aortic valve stenosis Current visit: No Status: Chronic Category: Medical Code(s): I35.0 - Nonrheumatic aortic (valve) stenosis (8) CAD (coronary artery disease) Current visit: No Status: Chronic Category: Medical Code(s): I25.10 - Atherosclerotic heart disease of [place] coronary artery without angina pectoris (9) Diabetes mellitus Current visit: No Status: Chronic Category: Medical Code(s): E11.9 - Type 2 diabetes mellitus without complications - Assessment and plan all Dx Assessment and Plan for all problems:: Patient's Gram stain shows gram-positive cocci, add vancomycin given patient's poor improvement so far, Mucomyst, stop steroids given lack of wheezing and side effects.
--- NOTE | 2017-09-11 09:14 | HMH.PHACONS ---
- Pharmacy Consult Date: 09/11/17 Time: 09:14 Referring provider: DR. GUSMAN Reason for Consult:: VANCOMYCIN DOSING Allergies and ADEs:: Allergies Allergy/AdvReac Type Severity Reaction Status Date / Time No Known Allergies Allergy Verified 08/14/17 13:11 Home Medications:: Home Medications Medication Instructions Recorded Confirmed Type Aspirin [Aspir 81] 81 mg PO DAILY 08/04/17 09/09/17 History Atorvastatin Calcium [Atorvastatin 80 mg PO HS 08/04/17 09/09/17 History 80mg Tab] Gabapentin [Gabapentin 300mg Cap] 300 mg PO TID 08/04/17 09/09/17 History Ondansetron HCl [Ondansetron 8mg 8 mg PO NEEDED PRN 08/04/17 09/08/17 History Tab] Spironolactone [Spironolactone 50 mg PO BID 08/04/17 09/09/17 History 50mg Tab] Ticagrelor [Brilinta 90mg Tablet] 90 mg PO BID 08/04/17 09/09/17 History allopurinol 100 mg tablet 100 mg PO DAILY 08/22/17 09/09/17 History sitagliptin 25 mg tablet 25 mg PO DAILY 08/22/17 09/09/17 History Furosemide [Furosemide 20mg Tab] 20 mg PO DAILY 09/09/17 09/09/17 History Omeprazole [Omeprazole 20mg Tab] 20 mg PO DAILY PRN 09/09/17 09/09/17 History Height: 1.78 m Weight: 79.067 kg Laboratory Results:: Laboratory Results - last 24 hr 09/10/17 21:36: POC Glucose 356 09/11/17 06:05: WBC 12.8 H D, RBC 3.05 L, Hgb 9.3 L, Hct 29.7 L, MCV 97.3 H, MCH 30.6, MCHC 31.4 L, RDW 16.6, Plt Count 320, MPV 7.6, Neut % (Auto) 95.4 H, Lymph % (Auto) 1.7 L, [place] % (Auto) 2.8, Eos % (Auto) 0.0 L, Baso % (Auto) 0.0 L, Neut # (Auto) 12.2 H, Lymph # (Auto) 0.2 L, [place] # (Auto) 0.4, Eos # (Auto) 0.0, Baso # (Auto) 0.0 09/11/17 06:05: Sodium 138, Potassium 4.5, Chloride 104, Carbon Dioxide 25, Anion Gap 13.5, BUN 23 H, Creatinine 1.25, Estimated Creat Clear 56, Estimated GFR 56 L, Est GFR ( Amer) 68, Glucose 219 H 09/11/17 06:21: POC Glucose 222 Medical History: Reports:: Cancer, Coronary Artery Disease, Diabetes Mellitus Type 2, Gastroesophageal Reflux Disease(GERD), Heart Murmur, Hyperlipidemia, Hypertension, Myocardial Infarction, Osteoporosis Denies:: Diabetes Mellitus Type 1, MRSA, Seizures Assessment and Plan (1) Community acquired pneumonia Current visit: Yes Status: Acute Qualifiers: Laterality: unspecified laterality Qualified Code(s): J18.9 - Pneumonia, unspecified organism Category: Medical Code(s): J18.9 - Pneumonia, unspecified organism (2) Lymphoma Current visit: No Status: Chronic Category: Medical Code(s): C85.90 - Non-Hodgkin lymphoma, unspecified, unspecified site (3) Pleural effusion Current visit: Yes Status: Acute Category: Medical Code(s): J90 - Pleural effusion, not elsewhere classified (4) Anemia Current visit: No Status: Chronic Qualifiers: Anemia type: unspecified type Qualified Code(s): D64.9 - Anemia, unspecified Category: Medical Code(s): D64.9 - Anemia, unspecified (5) Renal insufficiency Current visit: Yes Status: Chronic Category: Medical Code(s): N28.9 - Disorder of kidney and ureter, unspecified (6) HTN (hypertension) Current visit: No Status: Chronic Category: Medical Code(s): I10 - Essential (primary) hypertension (7) Aortic valve stenosis Current visit: No Status: Chronic Category: Medical Code(s): I35.0 - Nonrheumatic aortic (valve) stenosis (8) CAD (coronary artery disease) Current visit: No Status: Chronic Category: Medical Code(s): I25.10 - Atherosclerotic heart disease of [place] coronary artery without angina pectoris (9) Diabetes mellitus Current visit: No Status: Chronic Category: Medical Code(s): E11.9 - Type 2 diabetes mellitus without complications - Assessment and plan all Dx Assessment and Plan for all problems:: BASED ON PATIENT'S FACTORS, RECOMMEND STARTING WITH VANCOMYCIN 1500 MG Q18H AT THIS TIME. PHARMACY WILL FOLLOW DAILY AND ADJUST APPROPRIATE. LISSA MENDOZA, PHARMD
[2017-09-11 11:15] LABS: Lymphocytes % 1 % (10-50); Monocytes % 5 % (2-9); Neutrophils % 94 % (42-76); Platelet Estimate Slight Increase; Total Cells Counted 100
[2017-09-11 11:16] LABS: RBC Morphology Normal
[2017-09-11 12:04] LABS: POC Glucose,Bedside 326 mg/dL
--- NOTE | 2017-09-11 14:40 | PC.NURSE ---
Pt resting in bed. No complaint of SOA this shift auditory wheezes are noted t/o shift. Cough noted after neb tx. Ambulates to and from bathroom with no assistance needed. Will continue to monitor
[2017-09-11 16:42] LABS: POC Glucose,Bedside 404 mg/dL
[2017-09-12] VITALS (12 sets, daily range): BP systolic 93–126; BP diastolic 62–77; PULSE 71–115; RESP 18–20; TEMP 36.3–37.2; O2SAT 92–98
--- NOTE | 2017-09-12 03:54 | PC.NURSE ---
Pt rested well this shift with no complaints of pain. States he had some SOA but is better than before. Lung sounds reveal wheezing and rhonchi. BS active in all 4 qauds, LBM 09/10/17. Hernia noted to LLQ upon palpation of abdomen. VSS. Pt tolerating RA. No acute distress noted. Will continue to monitor.
[2017-09-12 07:19] LABS: Eosinophils % 0.1 % (0.1-12.0); Hematocrit 28.3 % (42.0-52.0); Hemoglobin 8.8 g/dL (14.1-18.0); Lymphocytes # 0.4 K/mm3 (0.7-4.5); Lymphocytes % 4.6 K/mm3 (10-50); Mean Corpuscular HGB Conc 31.2 g/dL (31.8-35.4); Mean Corpuscular Hemoglobin 30.5 pg (27.0-31.2); Mean Corpuscular Volume 97.7 fl (80-94); Mean Platelet Volume 7.9 fl (7.4-10.4); Monocytes # 0.6 K/mm3 (0.1-1.0); Neutrophils # 7.2 K/mm3 (1.8-7.8); Neutrophils % 88.4 % (37.0-80.0); Platelet Count 299 K/mm3 (142-424); Red Cell Distribution Width 16.7 % (11.5-17.5); White Blood Count 8.1 K/mm3 (4.8-10.8)
[2017-09-12 07:20] LABS: Anion Gap 10.8 mEq/L (5-15); Blood Urea Nitrogen 23 mg/dL (7-18); Carbon Dioxide 26 mmol/L (21.0-32.0); Chloride 108 mmol/L (98-107); Creatinine Clearance Estimated 56 mL/min (0-300); Creatinine,Serum 1.28 mg/dL (0.70-1.30); Estimated Glomerular Filt Rate 55 ml/min (>60); GFR (African American) 66 ML/MIN (>60); Glucose 138 mg/dL (74-106); Potassium 3.8 mmoL/L (3.5-5.1); Sodium 141 mmol/L (136-145)
[2017-09-12 07:21] LABS: MANUAL DIFFERENTIAL MANUAL DIFFERENTIAL (MANUAL DIFF)
--- NOTE | 2017-09-12 07:56 | HMH.ACPN2 ---
Internal Medicine - PN: Subj *Date: 09/12/17 *Time: 07:15 Interval history: Patient is sitting on the side of the bed. Conversational dyspnea at 7-8 words noted. States I have been up moving around this morning. I think my breathing is a little better. Alert and oriented x3. Rate and rhythm regular. Lung sounds with rhonchi and wheezes throughout, air flow improved. Abdomen soft and nontender Exam Vital signs and Labs for Last 24 Hours: Temp Pulse Resp BP Pulse Ox 98.3 F 89 20 113/68 93 L 09/12/17 04:00 09/12/17 05:55 09/12/17 04:00 09/12/17 04:00 09/12/17 05:55 Laboratory Results - last 24 hr 09/11/17 06:05: Total Counted 100, Neutrophils % (Manual) 94 H, Lymphocytes % (Manual) 1 L, Monocytes % (Manual) 5, Platelet Estimate Slight increase, RBC Morphology Normal 09/11/17 11:48: POC Glucose 326 09/11/17 16:28: POC Glucose 404 09/12/17 06:30: WBC 8.1 D, RBC 2.90 L, Hgb 8.8 L, Hct 28.3 L, MCV 97.7 H, MCH 30.5, MCHC 31.2 L, RDW 16.7, Plt Count 299, MPV 7.9, Neut % (Auto) 88.4 H, Lymph % (Auto) 4.6 L, [place] % (Auto) 7.0, Eos % (Auto) 0.1, Baso % (Auto) 0.0 L, Neut # (Auto) 7.2, Lymph # (Auto) 0.4 L, [place] # (Auto) 0.6, Eos # (Auto) 0.0, Baso # (Auto) 0.0 09/12/17 06:30: Sodium 141, Potassium 3.8, Chloride 108 H, Carbon Dioxide 26, Anion Gap 10.8, BUN 23 H, Creatinine 1.28, Estimated Creat Clear 56, Estimated GFR 55 L, Est GFR ( Amer) 66, Glucose 138 H I & O for Last 24 hours: Intake & Output 09/09/17 09/10/17 09/11/17 09/12/17 11:59 11:59 11:59 11:59 Intake Total 1480 / 1480 1358 / 1358 1831 / 1831 Output Total 800 / 800 Balance 1480 / 1480 1358 / 1358 1031 / 1031 Weight 176 lb 12.972 oz 176 lb 12.972 oz 174 lb 5 oz 179 lb 2 oz Microbiology Reports for the Last 24 Hours: Microbiology 09/09/17 Unknown Sputum - Expectorated Sputum Gram Stain - Final 09/09/17 Unknown Sputum - Expectorated Sputum Sputum Culture - Final Normal Respiratory Bhavesh Assessment and Plan (1) Community acquired pneumonia Current visit: Yes Status: Acute Qualifiers: Laterality: unspecified laterality Qualified Code(s): J18.9 - Pneumonia, unspecified organism Category: Medical Code(s): J18.9 - Pneumonia, unspecified organism (2) Lymphoma Current visit: No Status: Chronic Category: Medical Code(s): C85.90 - Non-Hodgkin lymphoma, unspecified, unspecified site (3) Pleural effusion Current visit: Yes Status: Acute Category: Medical Code(s): J90 - Pleural effusion, not elsewhere classified (4) Anemia Current visit: No Status: Chronic Qualifiers: Anemia type: unspecified type Qualified Code(s): D64.9 - Anemia, unspecified Category: Medical Code(s): D64.9 - Anemia, unspecified (5) Renal insufficiency Current visit: Yes Status: Chronic Category: Medical Code(s): N28.9 - Disorder of kidney and ureter, unspecified (6) HTN (hypertension) Current visit: No Status: Chronic Category: Medical Code(s): I10 - Essential (primary) hypertension (7) Aortic valve stenosis Current visit: No Status: Chronic Category: Medical Code(s): I35.0 - Nonrheumatic aortic (valve) stenosis (8) CAD (coronary artery disease) Current visit: No Status: Chronic Category: Medical Code(s): I25.10 - Atherosclerotic heart disease of [place] coronary artery without angina pectoris (9) Diabetes mellitus Current visit: No Status: Chronic Category: Medical Code(s): E11.9 - Type 2 diabetes mellitus without complications - Assessment and plan all Dx Assessment and Plan for all problems:: Sputum culture showed normal respiratory bhavesh. Continue IV antibiotics, duonebs and oxygen therapy.
--- NOTE | 2017-09-12 08:00 | P.PN_ITS ---
Internal Medicine - PN: Subj *Date: 09/12/17 *Time: 07:15 Interval history: Patient is sitting on the side of the bed. Conversational dyspnea at 7-8 words noted. States I have been up moving around this morning. I think my breathing is a little better. Alert and oriented x3. Rate and rhythm regular. Lung sounds with rhonchi and wheezes throughout, air flow improved. Abdomen soft and nontender Exam Vital signs and Labs for Last 24 Hours: Temp Pulse Resp BP Pulse Ox 98.3 F 89 20 113/68 93 L 09/12/17 04:00 09/12/17 05:55 09/12/17 04:00 09/12/17 04:00 09/12/17 05:55 Laboratory Results - last 24 hr 09/11/17 06:05: Total Counted 100, Neutrophils % (Manual) 94 H, Lymphocytes % ( Manual) 1 L, Monocytes % (Manual) 5, Platelet Estimate Slight increase, RBC Morphology Normal 09/11/17 11:48: POC Glucose 326 09/11/17 16:28: POC Glucose 404 09/12/17 06:30: WBC 8.1 D, RBC 2.90 L, Hgb 8.8 L, Hct 28.3 L, MCV 97.7 H, MCH 30.5, MCHC 31.2 L, RDW 16.7, Plt Count 299, MPV 7.9, Neut % (Auto) 88.4 H, Lymph % (Auto) 4.6 L, [place] % (Auto) 7.0, Eos % (Auto) 0.1, Baso % (Auto) 0.0 L, Neut # (Auto) 7.2, Lymph # (Auto) 0.4 L, [place] # (Auto) 0.6, Eos # (Auto) 0.0, Baso # (Auto) 0.0 09/12/17 06:30: Sodium 141, Potassium 3.8, Chloride 108 H, Carbon Dioxide 26, Anion Gap 10.8, BUN 23 H, Creatinine 1.28, Estimated Creat Clear 56, Estimated GFR 55 L, Est GFR ( Amer) 66, Glucose 138 H I & O for Last 24 hours: Intake & Output 09/09/17 09/10/17 09/11/17 09/12/17 11:59 11:59 11:59 11:59 Intake Total 1480 / 1480 1358 / 1358 1831 / 1831 Output Total 800 / 800 Balance 1480 / 1480 1358 / 1358 1031 / 1031 Weight 176 lb 12.972 oz 176 lb 12.972 oz 174 lb 5 oz 179 lb 2 oz Microbiology Reports for the Last 24 Hours: Microbiology 09/09/17 Unknown Sputum - Expectorated Sputum Gram Stain - Final 09/09/17 Unknown Sputum - Expectorated Sputum Sputum Culture - Final Normal Respiratory Kathie Assessment and Plan (1) Community acquired pneumonia Current visit: Yes Status: Acute Qualifiers: Laterality: unspecified laterality Qualified Code(s): J18.9 - Pneumonia, unspecified organism Category: Medical Code(s): J18.9 - Pneumonia, unspecified organism (2) Lymphoma Current visit: No Status: Chronic Category: Medical Code(s): C85.90 - Non- Hodgkin lymphoma, unspecified, unspecified site (3) Pleural effusion Current visit: Yes Status: Acute Category: Medical Code(s): J90 - Pleural effusion, not elsewhere classified (4) Anemia Current visit: No Status: Chronic Qualifiers: Anemia type: unspecified type Qualified Code(s): D64.9 - Anemia, unspecified Category: Medical Code(s): D64.9 - Anemia, unspecified (5) Renal insufficiency Current visit: Yes Status: Chronic Category: Medical Code(s): N28.9 - Disorder of kidney and ureter, unspecified (6) HTN (hypertension) Current visit: No Status: Chronic Category: Medical Code(s): I10 - Essential (primary) hypertension (7) Aortic valve stenosis Current visit: No Status: Chronic Category: Medical Code(s): I35.0 - Nonrheumatic aortic (valve) stenosis (8) CAD (coronary artery disease) Current visit: No Status: Chronic Category: Medical Code(s): I25.10 - Atherosclerotic heart disease of [place] coronary artery without angina pectoris (9) Diabetes mellitus Current visit: No Status: Chronic
--- NOTE | 2017-09-12 08:57 | PC.NURSE ---
REPORT GIVEN TO Heath BENEDICT RN
[2017-09-12 09:37] LABS: Lymphocytes % 4 % (10-50); Monocytes % 5 % (2-9); Neutrophils % 91 % (42-76); Total Cells Counted 100
[2017-09-12 09:39] LABS: Platelet Estimate Normal; RBC Morphology Normal
--- NOTE | 2017-09-12 10:17 | PC.NURSE ---
0830: Noelle patel on floor. Advised theoretical physicist that pt states his heart doctor (dr denson) had taken him off brillinta because he bled out and needed 4 pints of blood. Sommer patel okays to d'c pt's brillinta.
--- NOTE | 2017-09-12 10:28 | HMH.ACPN ---
Internal Medicine - PN: Subj *Date: 09/12/17 *Time: 10:28 Exam Vital signs and Labs for Last 24 Hours: Temp Pulse Resp BP Pulse Ox 97.8 F 101 H 20 110/68 98 09/12/17 08:00 09/12/17 08:00 09/12/17 08:00 09/12/17 08:00 09/12/17 08:00 Laboratory Results - last 24 hr 09/11/17 06:05: Total Counted 100, Neutrophils % (Manual) 94 H, Lymphocytes % (Manual) 1 L, Monocytes % (Manual) 5, Platelet Estimate Slight increase, RBC Morphology Normal 09/11/17 11:48: POC Glucose 326 09/11/17 16:28: POC Glucose 404 09/12/17 06:30: WBC 8.1 D, RBC 2.90 L, Hgb 8.8 L, Hct 28.3 L, MCV 97.7 H, MCH 30.5, MCHC 31.2 L, RDW 16.7, Plt Count 299, MPV 7.9, Neut % (Auto) 88.4 H, Lymph % (Auto) 4.6 L, [place] % (Auto) 7.0, Eos % (Auto) 0.1, Baso % (Auto) 0.0 L, Neut # (Auto) 7.2, Lymph # (Auto) 0.4 L, [place] # (Auto) 0.6, Eos # (Auto) 0.0, Baso # (Auto) 0.0, Total Counted 100, Neutrophils % (Manual) 91 H, Lymphocytes % (Manual) 4 L, Monocytes % (Manual) 5, Platelet Estimate Normal, RBC Morphology Normal 09/12/17 06:30: Sodium 141, Potassium 3.8, Chloride 108 H, Carbon Dioxide 26, Anion Gap 10.8, BUN 23 H, Creatinine 1.28, Estimated Creat Clear 56, Estimated GFR 55 L, Est GFR ( Amer) 66, Glucose 138 H I & O for Last 24 hours: Intake & Output 09/09/17 09/10/17 09/11/17 09/12/17 23:59 23:59 23:59 23:59 Intake Total 1480 / 1480 2318 / 2318 1351 / 1351 Output Total 800 / 800 Balance 1480 / 1480 1518 / 1518 1351 / 1351 Weight 80.2 kg 79.067 kg 81.25 kg Microbiology Reports for the Last 24 Hours: Microbiology 09/09/17 Unknown Sputum - Expectorated Sputum Gram Stain - Final 09/09/17 Unknown Sputum - Expectorated Sputum Sputum Culture - Final Normal Respiratory Kathie Assessment and Plan (1) Community acquired pneumonia Current visit: Yes Status: Acute Qualifiers: Laterality: unspecified laterality Qualified Code(s): J18.9 - Pneumonia, unspecified organism Category: Medical Code(s): J18.9 - Pneumonia, unspecified organism (2) Lymphoma Current visit: No Status: Chronic Category: Medical Code(s): C85.90 - Non-Hodgkin lymphoma, unspecified, unspecified site (3) Pleural effusion Current visit: Yes Status: Acute Category: Medical Code(s): J90 - Pleural effusion, not elsewhere classified (4) Anemia Current visit: No Status: Chronic Qualifiers: Anemia type: unspecified type Qualified Code(s): D64.9 - Anemia, unspecified Category: Medical Code(s): D64.9 - Anemia, unspecified (5) Renal insufficiency Current visit: Yes Status: Chronic Category: Medical Code(s): N28.9 - Disorder of kidney and ureter, unspecified (6) HTN (hypertension) Current visit: No Status: Chronic Category: Medical Code(s): I10 - Essential (primary) hypertension (7) Aortic valve stenosis Current visit: No Status: Chronic Category: Medical Code(s): I35.0 - Nonrheumatic aortic (valve) stenosis (8) CAD (coronary artery disease) Current visit: No Status: Chronic Category: Medical Code(s): I25.10 - Atherosclerotic heart disease of [place] coronary artery without angina pectoris (9) Diabetes mellitus Current visit: No Status: Chronic Category: Medical Code(s): E11.9 - Type 2 diabetes mellitus without complications The patient's infection will respond to the chosen ABx?: Yes Is the patient receiving the right drug, dose, and route?: Yes Could a more targeted ABx be ordered?: Yes (Culture results not back, empiric therapy)
[2017-09-12 11:26] LABS: POC Glucose,Bedside 147 mg/dL
[2017-09-12 11:26] LABS: POC Glucose,Bedside 368 mg/dL
[2017-09-12 12:26] LABS: POC Glucose,Bedside 182 mg/dL
--- NOTE | 2017-09-12 17:42 | PC.NURSE ---
PT STABLE. AMBULATES IN HALLS MULTIPLE TIMES THIS SHIFT. WHEEZING CONTINUES. PT NOTED TO COUGH A LOT TODAY AND IS UNABLE TO PRODUCE A SMALL AMOUNT OF SPUTUM. PT ENCOURAGED TO DRINK WATER. SPOKE WITH Sommer JOHNSON ABOUT COUGH MEDICATION (EXPECTORANT). SPUTUM PT DOES PRODUCE IS THICK AND YELLOW.
[2017-09-13] VITALS: BP 117/61; PULSE 93; RESP 20; TEMP 36.6; O2SAT 91
[2017-09-13 01:05] LABS: POC Glucose,Bedside 211 mg/dL
[2017-09-13 01:05] LABS: POC Glucose,Bedside 126 mg/dL
[2017-09-13 03:01] VITALS: O2SAT 91
--- NOTE | 2017-09-13 03:18 | PC.NURSE ---
ADMINISTERED PRN COUGH MEDICATION PER SEP R/T PT REQUEST AND PRODUCTIVE COUGH. CREAM COLORED, THICK SPUTUM NOTED. LUNG SOUNDS NOTED WHEEZES T/O WITH SCATTERED RHONCHI PER AUSCULTATION. TOLERATING RA WELL. PT AMBULATED IN [place] INDEPENDENTLY, TOLERATED WELL. STITCHES NOTED ON NOSE, CDI, NO S/S OF INFECTION. VSS. WILL CONTINUE TO MONITOR.
[2017-09-13 03:52] VITALS: BP 110/57; PULSE 94; RESP 20; TEMP 36.7; O2SAT 90
[2017-09-13 05:37] VITALS: PULSE 70; PULSE 73; O2SAT 90
[2017-09-13 06:47] LABS: POC Glucose,Bedside 133 mg/dL
--- NOTE | 2017-09-13 07:32 | HMH.DCSUM ---
General - General Admission date: 09/09/17 Discharge date: 09/13/17 HPI HPI: 77 yr old male with h/o CAD, DM and lymphoma presented to the ED last night due to increasing shortness of breath both at rest and with exertion. Reports onset about 24 hours ago and associated with cough and some low grade fevers. He tried some OTC cough medications but felt progressively worse through the day yesterday and decided to go to the ED. He was found to have bilateral lower lobe pneumonia and small effusions and was admitted for management. This morning he reports that he feels good but still feels short of breath and coughing. Objective Vital signs: Temp Pulse Resp BP Pulse Ox 98.1 F 73 20 110/57 90 L 09/13/17 03:52 09/13/17 05:37 09/13/17 03:52 09/13/17 03:52 09/13/17 05:37 Narrative: This morning on day of discharge patient is alert, oriented ?3. Able to eat well, sits up on the side of the bed without oxygen requirement and is able to do his own ADLs according to nursing staff. Heart rate regular. No perfusion deficits. Lungs have better air movement. No edema or clubbing. Hospital Course Hospital Course: Patient was admitted, placed on standard IV medications for community-acquired pneumonia. He did well, although vancomycin was added because of the initial presence of gram-positive cocci in his Gram stain which was read out as normal bhavesh. Improved slowly but in a stepwise fashion. This morning he continues to have some coughing but feels much better, no extra requirement and he is able to swallow pills. No fevers. Plan will be to discharge home with p.o. Augmentin, short-term prednisone and short-term follow-up in my office. Results Labs on day of discharge: Labs from last 24 hours 09/13/17 09/12/17 09/12/17 06:30 20:48 17:07 Total Counted Neutrophils % (Manual) Lymphocytes % (Manual) Monocytes % (Manual) Platelet Estimate RBC Morphology Sodium Potassium Chloride Carbon Dioxide Anion Gap BUN Creatinine Estimated Creat Clear Estimated GFR Est GFR ( Amer) Glucose POC Glucose 133 126 211 09/12/17 09/12/17 09/12/17 11:53 06:57 06:30 Total Counted Neutrophils % (Manual) Lymphocytes % (Manual) Monocytes % (Manual) Platelet Estimate RBC Morphology Sodium 141 Potassium 3.8 Chloride 108 H Carbon Dioxide 26 Anion Gap 10.8 BUN 23 H Creatinine 1.28 Estimated Creat Clear 56 Estimated GFR 55 L Est GFR ( Amer) 66 Glucose 138 H POC Glucose 182 147 09/12/17 09/11/17 06:30 20:54 Total Counted 100 Neutrophils % (Manual) 91 H Lymphocytes % (Manual) 4 L Monocytes % (Manual) 5 Platelet Estimate Normal RBC Morphology Normal Sodium Potassium Chloride Carbon Dioxide Anion Gap BUN Creatinine Estimated Creat Clear Estimated GFR Est GFR ( Amer) Glucose POC Glucose 368 DS: Diagnosis - Discharge Diagnosis (1) Community acquired pneumonia Status: Acute (2) Lymphoma Status: Chronic (3) Pleural effusion Status: Acute (4) Anemia Status: Chronic (5) Renal insufficiency Status: Chronic (6) HTN (hypertension) Status: Chronic (7) Aortic valve stenosis Status: Chronic (8) CAD (coronary artery disease) Status: Chronic (9) Diabetes mellitus Status: Chronic Discharge Plan - Patient Discharge Instructions ACTIVITY: Limited activity DIET: continue same diet Patient Instructions: Pneumonia-Adult - Follow up Plan Follow up with: Noelle Chester APRN [Nurse Practitioner] - 2 days Disposition: Home, Self-Prison Medications: Home Medications Medication Instructions Recorded Confirmed Type Aspirin [Aspir 81] 81 mg PO DAILY 08/04/17 09/09/17 History Atorvastatin Calcium [Atorvastatin 80 mg PO HS 08/04/17 09/09/17 History 80mg Tab] [place]
--- NOTE | 2017-09-13 07:36 | P.DS_ITS ---
General - General Admission date: 09/09/17 Discharge date: 09/13/17 HPI HPI: 77 yr old male with h/o CAD, DM and lymphoma presented to the ED last night due to increasing shortness of breath both at rest and with exertion. Reports onset about 24 hours ago and associated with cough and some low grade fevers. He tried some OTC cough medications but felt progressively worse through the day yesterday and decided to go to the ED. He was found to have bilateral lower lobe pneumonia and small effusions and was admitted for management. This morning he reports that he feels good but still feels short of breath and coughing. Objective Vital signs: Temp Pulse Resp BP Pulse Ox 98.1 F 73 20 110/57 90 L 09/13/17 03:52 09/13/17 05:37 09/13/17 03:52 09/13/17 03:52 09/13/17 05:37 Narrative: This morning on day of discharge patient is alert, oriented ?3. Able to eat well, sits up on the side of the bed without oxygen requirement and is able to do his own ADLs according to nursing staff. Heart rate regular. No perfusion deficits. Lungs have better air movement. No edema or clubbing. Hospital Course Hospital Course: Patient was admitted, placed on standard IV medications for community-acquired pneumonia. He did well, although vancomycin was added because of the initial presence of gram-positive cocci in his Gram stain which was read out as normal bhavesh. Improved slowly but in a stepwise fashion. This morning he continues to have some coughing but feels much better, no extra requirement and he is able to swallow pills. No fevers. Plan will be to discharge home with p.o. Augmentin, short-term prednisone and short-term follow-up in my office. Results Labs on day of discharge: Labs from last 24 hours 09/13/17 09/12/17 09/12/17 06:30 20:48 17:07 Total Counted Neutrophils % (Manual) Lymphocytes % (Manual) Monocytes % (Manual) Platelet Estimate RBC Morphology Sodium Potassium Chloride Carbon Dioxide Anion Gap BUN Creatinine Estimated Creat Clear Estimated GFR Est GFR ( Amer) Glucose POC Glucose 133 126 211 09/12/17 09/12/17 09/12/17 11:53 06:57 06:30 Total Counted Neutrophils % (Manual) Lymphocytes % (Manual) Monocytes % (Manual) Platelet Estimate RBC Morphology Sodium 141 Potassium 3.8 Chloride 108 H Carbon Dioxide 26 Anion Gap 10.8 BUN 23 H Creatinine 1.28 Estimated Creat Clear 56 Estimated GFR 55 L Est GFR ( Amer) 66 Glucose 138 H POC Glucose 182 147 09/12/17 09/11/17 06:30 20:54 Total Counted 100 Neutrophils % (Manual) 91 H Lymphocytes % (Manual) 4 L Monocytes % (Manual) 5 Platelet Estimate Normal RBC Morphology Normal Sodium Potassium Chloride Carbon Dioxide Anion Gap BUN Creatinine Estimated Creat Clear Estimated GFR Est GFR ( Amer) Glucose POC Glucose 368
[2017-09-13 08:00] VITALS: BP 113/61; PULSE 94; RESP 24; TEMP 36.9; O2SAT 91
--- NOTE | 2017-09-13 10:34 | PC.NURSE ---
Pt tolerated well this morning, no complaints voiced. Pt discharged home, all education/paperwork given prior to discharge (by Kristine Valencia RN). Pt taken out via w/c by DENILSON Smith.
== END 2017-09-13 10:15 | disposition home or self-care (01) | DRG 194 ==
LOC: ER 22:39 → 2ND 09-09 11:29
PROVIDERS: Nurse Practitioner Family; Admitting Provider Emergency Medicine; Emergency Provider Emergency Medicine; PCP Internal Medicine Adolescent Medicine; Visit Provider Internal Medicine Adolescent Medicine
DX: J18.9 Pneumonia, unspecified organism (principal); C85.90 Non-Hodgkin lymphoma, unspecified, unspecified site; D64.9 Anemia, unspecified; J90 Pleural effusion, not elsewhere classified; E11.9 Type 2 diabetes mellitus without complications; E78.5 Hyperlipidemia, unspecified; N28.9 Disorder of kidney and ureter, unspecified; I35.0 Nonrheumatic aortic (valve) stenosis; I25.10 Atherosclerotic heart disease of native coronary artery without angina pectoris; I25.2 Old myocardial infarction; Z79.82 Long term (current) use of aspirin; Z79.899 Other long term (current) drug therapy; Z95.5 Presence of coronary angioplasty implant and graft; Z82.49 Family history of ischemic heart disease and other diseases of the circulatory system; Z80.9 Family history of malignant neoplasm, unspecified
CPT/HCPCS: 36415; 71046; 80048; 82550; 82553; 82962; 83605; 84484; 85007; 85025; 87040; 87070; 87205; 87486; 87581; 87633; 87798; 93005; 94640; 94761; 96365; 96367; 96374; 96375; 99284; J0456; J3370

== ENCOUNTER → 2017-09-29 07:57 | Outpatient (CLI) | payer MEDICARE, SELFPAY ==
[2017-09-29 08:24] LABS: Blood Urea Nitrogen 20 mg/dL (7-18); Creatinine,Serum 1.53 mg/dL (0.70-1.30); Estimated Glomerular Filt Rate 44 ml/min (>60); GFR (African American) 54 ML/MIN (>60)
--- NOTE | 2017-09-29 10:18 | CT_ITS ---
CT chest w con HISTORY: Follow-up lymphoma ITS.REASON: LYMPHOMA ORDERING PHYSICIAN: Familia Bishop PATIENT AGE: 77 years TECHNIQUE: Axial images obtained following the administration of 75 mL of Isovue 370 . Sagittal, and coronal reformatted images are also generated and reviewed. COMPARISON: None FINDINGS: No mediastinal or hilar mass or adenopathy. Coronary artery stents are present. No obvious pericardial effusion. Calcified nodes are present within the mediastinum and shelli. There are scattered small axillary lymph nodes. Surgical clips are present in the right axilla. The right axillary adenopathy has improved compared to the previous exam previous nodes measured up to 13 mm now measure approximately 5 mm. Previously noted anterior mediastinal nodes are now much smaller. The largest mediastinal node previously measured 10 x 18 mm and now measures 10 x 6 mm. There are small bilateral pleural effusions which is developed on the right and slightly increased on the left with compressive atelectatic changes. The interstitium is prominent and there is thickening of the fissures along with peribronchial cuffing consistent with CHF or plasma volume overload. There are scattered small pulmonary nodules some of which are calcified felt to be stable. There are some new parenchymal opacities in the lung bases probably due to areas of atelectasis. One of these is in the right lower lobe measuring 8 mm. Developing nodule cannot be excluded and follow-up is recommended. No evidence of aortic aneurysm or central pulmonary embolus IMPRESSION: 1. Improvement in right axillary and mediastinal adenopathy adenopathy. 2. Bilateral pleural effusions with interstitial edema and peribronchial cuffing consistent with CHF or plasma volume overload. 3. There is a new 8 mm parenchymal opacity in the right lower lobe posteriorly could be due to atelectatic/inflammatory change. Cannot include developing nodule. Follow-up recommended
--- NOTE | 2017-09-29 10:19 | CT_ITS ---
CT abdomen pelvis w con CLINICAL INDICATION: Follow-up lymphoma ITS.REASON: LYMPHOMA ORDERING PHYSICIAN: Familia Bishop PATIENT AGE: 77 years COMPARISON: 06/06/2017 TECHNIQUE: Axial images obtained with sagittal and coronal reformats. PROCEDURE: Oral Contrast: Redicat IV Contrast: 75 mL's of Isovue-370 performed in conjunction with chest CT. FINDINGS: The chest CT for lower thorax description. There are small bilateral pleural effusions. The liver has a somewhat irregular appearance consistent with cirrhosis. Multiple gallstones are present. No focal liver lesion demonstrated There is mild splenomegaly 14 cm. There are scattered stable isodense lesions of the spleen measuring up to 1 cm as before. The previously described retroperitoneal and celiac adenopathy has moderately improved. For instance, previously there was a left para-aortic lymph node which measured 2.9 x 2.7 cm now measuring 1.7 x 1 cm.. No new areas of adenopathy are evident. No intestinal obstruction or free air. No renal calculi or hydronephrosis. Pancreas is unremarkable. There is mild thickening of the ascending and transverse portion of the there is mild stranding of the anterior pararenal fascia small supraumbilical hernia is present containing fat. No intestinal obstruction or free air. No evidence of appendicitis or diverticulitis. There is a mild amount retained colonic feces. Previously noted ascites has improved IMPRESSION: 1. Interval improvement in the peritoneal and retroperitoneal adenopathy. 2. Suspected cirrhosis with mild splenomegaly. Ascites has improved. 3. Thickening of the descending and transverse duodenum which may be seen with duodenitis 4. Cholelithiasis 5. Stable splenic lesions
== END ==
PROVIDERS: PCP Internal Medicine Adolescent Medicine; Visit Provider Internal Medicine Hematology & Oncology
DX: C82.10 Follicular lymphoma grade II, unspecified site (principal)
CPT/HCPCS: 36415; 71260; 74177; 82565; 84520; Q9967

== ENCOUNTER → 2017-12-18 07:24 | Outpatient (CLI) | payer MEDICARE, SELFPAY ==
[2017-12-18 07:47] LABS: Blood Urea Nitrogen 24 mg/dL (7-18); Creatinine,Serum 1.49 mg/dL (0.70-1.30); Estimated Glomerular Filt Rate 46 ml/min (>60); GFR (African American) 55 ML/MIN (>60)
--- NOTE | 2017-12-18 08:31 | CT_ITS ---
CT chest wo con HISTORY: Follow-up lymphoma ITS.REASON: LYMPHOMA ORDERING PHYSICIAN: Familia Bishop PATIENT AGE: 77 years Technique: Axial images obtained. Sagittal and coronal reformatted images are also generated and reviewed. All CT scans at the facility use one or more dose reduction, viz: automated exposure control; ma/kV adjustment per patient size (including targeted exams where dose is matched to indication; i.e. head); or iterative reconstruction technique. CONTRAST: 75ml Isovue 370 I.V. COMPARISON: 09/29/2017 FINDINGS: There are scattered small mediastinal and hilar lymph nodes many of which are calcified.. Diffuse coronary artery calcification noted. Bilateral gynecomastia is present. There are small axillary lymph nodes with clips in the right axilla. No dominant adenopathy. There is trace bilateral effusions. The effusions have decreased in volume since the previous exam. There remains prominence of the interstitium. Scattered small pulmonary nodules once again noted not significantly changed.. Some nodules are calcified Mild atelectatic changes are present in the lung bases. There is coarsening of the bronchovascular markings as before. No acute bony anomalies. No evidence of aortic aneurysm. IMPRESSION: 1. Overall stable appearance of the chest regarding patient's small pulmonary nodules, coarsening of bronchovascular markings with prominence of the interstitium and small mediastinal and axillary nodes. 2. No evidence of recurrent adenopathy. 3. Decrease in size of bilateral pleural effusions. 4. Bilateral gynecomastia
--- NOTE | 2017-12-18 08:31 | CT_ITS ---
CT abdomen pelvis wo con CLINICAL INDICATION: Follow-up lymphoma ITS.REASON: LYMPHOMA ORDERING PHYSICIAN: Familia Bishop PATIENT AGE: 77 years COMPARISON: 09/29/2017 TECHNIQUE: Axial images obtained with sagittal and coronal reformats. All CT scans at the facility use one or more dose reduction, viz: automated exposure control; ma/kV adjustment per patient size (including targeted exams where dose is matched to indication; i.e. head); or iterative reconstruction technique. PROCEDURE: Oral Contrast: Redicat IV Contrast: None . FINDINGS: There remains a nodular contour of the liver which may be seen with cirrhosis. The spleen is mildly enlarged at 14 cm. Previously there were isodense lesions of the spleen noted. These are not identified on this exam probably related to the lack of IV contrast. Cholelithiasis. Unremarkable appearing pancreas. No renal calculi or hydronephrosis. There is stranding of the pararenal fascia bilaterally. The mesentery's of somewhat dense appearance. There are scattered small nodes within the mesentery. The descending and transverse duodenum are slightly thickened at 4 there are small retroperitoneal lymph nodes once again noted unchanged. Ventral abdominal wall hernia containing fat unchanged. Small amount fluid in the rectovesical pouch. No evidence of intestinal obstruction or free air. No acute bony anomalies. IMPRESSION: 1. Overall stable CT appearance of the abdomen and pelvis. 2. No change in the small peritoneal and retroperitoneal lymph nodes 3. Suspected cirrhosis with splenomegaly and mild injection of the peritoneal fat with thickening of the pararenal fascia which may be seen with mild mesenteric edema from portal hypertension. 4. Cholelithiasis. 5 persistent thickening of the duodenum which also be seen with mesenteric edema from portal hypertension
[2017-12-18 14:20] LABS: Basophils % 0.4 % (0.1-2.0); Eosinophils # 0.1 K/mm3 (0.0-0.4); Eosinophils % 1.6 % (0.1-12.0); Hematocrit 31.8 % (42.0-52.0); Hemoglobin 10.2 g/dL (14.1-18.0); Lymphocytes # 0.5 K/mm3 (0.7-4.5); Lymphocytes % 12.1 K/mm3 (10-50); Mean Corpuscular HGB Conc 32.1 g/dL (31.8-35.4); Mean Corpuscular Hemoglobin 28.1 pg (27.0-31.2); Mean Corpuscular Volume 87.6 fl (80-94); Mean Platelet Volume 8.1 fl (7.4-10.4); Monocytes # 0.3 K/mm3 (0.1-1.0); Monocytes % 8.3 % (1.7-9.3); Neutrophils # 2.9 K/mm3 (1.8-7.8); Neutrophils % 77.6 % (37.0-80.0); Platelet Count 202 K/mm3 (142-424); Red Blood Count 3.64 M/mm3 (4.60-6.20); Red Cell Distribution Width 16.5 % (11.5-17.5); White Blood Count 3.7 K/mm3 (4.8-10.8)
[2017-12-18 15:26] LABS: Anion Gap 13.4 mEq/L (5-15); Blood Urea Nitrogen 21 mg/dL (7-18); Carbon Dioxide 24 mmol/L (21.0-32.0); Chloride 107 mmol/L (98-107); Creatinine,Serum 1.44 mg/dL (0.70-1.30); Estimated Glomerular Filt Rate 48 ml/min (>60); GFR (African American) 58 ML/MIN (>60); Glucose 194 mg/dL (74-106); Potassium 4.4 mmoL/L (3.5-5.1); Sodium 140 mmol/L (136-145)
== END ==
PROVIDERS: Otolaryngology; PCP Internal Medicine Adolescent Medicine; Visit Provider Internal Medicine Hematology & Oncology
DX: C82.10 Follicular lymphoma grade II, unspecified site (principal)
CPT/HCPCS: 36415; 71250; 74176; 80048; 82565; 84520; 85025; 93005

== ENCOUNTER 2018-03-13 04:38 | Observation (INO) ==
[2018-03-13 04:55] LABS: Basophils % 0.1 % (0.1-2.0); Eosinophils # 0.1 K/mm3 (0.0-0.4); Eosinophils % 1.3 % (0.1-12.0); Hematocrit 38.7 % (42.0-52.0); Hemoglobin 12.3 g/dL (14.1-18.0); Lymphocytes # 0.6 K/mm3 (0.7-4.5); Lymphocytes % 9.8 K/mm3 (10-50); Mean Corpuscular HGB Conc 31.8 g/dL (31.8-35.4); Mean Corpuscular Hemoglobin 27.9 pg (27.0-31.2); Mean Corpuscular Volume 87.7 fl (80-94); Mean Platelet Volume 8.2 fl (7.4-10.4); Monocytes # 0.4 K/mm3 (0.1-1.0); Neutrophils # 5.2 K/mm3 (1.8-7.8); Neutrophils % 82.7 % (37.0-80.0); Platelet Count 225 K/mm3 (142-424); Red Blood Count 4.41 M/mm3 (4.60-6.20); Red Cell Distribution Width 16.3 % (11.5-17.5); White Blood Count 6.3 K/mm3 (4.8-10.8)
[2018-03-13 05:16] LABS: Anion Gap 15.2 mEq/L (5-15); Blood Urea Nitrogen 17 mg/dL (7-18); Calcium 8.7 mg/dL (8.5-10.1); Carbon Dioxide 23 mmol/L (21.0-32.0); Chloride 105 mmol/L (98-107); Glucose 204 mg/dL (74-106); Potassium 4.2 mmoL/L (3.5-5.1); Sodium 139 mmol/L (136-145)
--- NOTE | 2018-03-13 05:53 | Emergency Department Note ---
ED Disposition Clinical Impression: Chest pain Qualifiers: Chest pain type: precordial pain Qualified Code(s): R07.2 - Precordial pain Disposition: Admitted as Observation Condition on Discharge: Good Referrals: Jose Ramon Mejias MD [Primary Care Provider] - - Critical Care Critical Care Time: No Attestation: On 03/13/18, the high probability of a clinically significant, sudden or life threatening deterioration of the following system(s) required my full and direct attention, intervention and personal management. The time I documented below is in addition to time spent performing reported procedures but includes the following listed in this critical care notation. Medical Decision Making - Medical Records Medical records reviewed: Yes: I reviewed the patient's medical records. - [place] Inquiry Pt receiving controlled substance: No Vital Signs: 03/13/18 04:38 03/13/18 05:17 Temperature 97.6 F Temperature Source Oral Pulse Rate [Right Radial] 75 68 Respiratory Rate 16 15 Blood Pressure [Right Arm] 150/77 120/57 Blood Pressure Mean [Right Arm] 101 78 Blood Pressure Source [Right Arm] Automatic Cuff Automatic Cuff Blood Pressure Position [Right Arm] Sitting Supine 02 Sat by Pulse Oximetry 96 97 Oxygen Delivery Method Room Air Room Air - Lab Data Lab results reviewed: Yes: I reviewed the patient's lab results. Lab Results 03/13/18 04:40: WBC 6.3, RBC 4.41 L, Hgb 12.3 L, Hct 38.7 L, MCV 87.7, MCH 27.9 , MCHC 31.8, RDW 16.3, Plt Count 225, MPV 8.2, Neut % (Auto) 82.7 H, Lymph % ( Auto) 9.8 L, [place] % (Auto) 6.0, Eos % (Auto) 1.3, Baso % (Auto) 0.1, Neut # ( Auto) 5.2, Lymph # (Auto) 0.6 L, [place] # (Auto) 0.4, Eos # (Auto) 0.1, Baso # ( Auto) 0.0 03/13/18 04:40: Sodium 139, Potassium 4.2, Chloride 105, Carbon Dioxide 23, Anion Gap 15.2 H, BUN 17, Creatinine 1.77 H, Estimated Creat Clear 41, Estimated GFR 38 L, Est GFR ( Amer) 45 L, Glucose 204 H, Calcium 8.7, Troponin I < 0.02 Result diagrams: 03/13/18 04:40 03/13/18 04:40 Orders (Tests/Meds): ED MEDICATIONS Generic Name Dose Route Start Last Admin Trade Name Freq PRN Reason Stop Dose Admin Sodium Chloride 3 ml 03/13/18 04:45 Sodium Chloride 3% 15ml Neb IH 04/12/18 04:44 ONCE PRN INDUCE SPUTUM COLLECTION Discontinued Medications Generic Name Dose Route Start Last Admin Trade Name Freq PRN Reason Stop Dose Admin Aspirin 324 mg 03/13/18 04:53 03/13/18 04:54 Aspirin 81mg Chewable Tablet PO 03/13/18 04:54 324 mg ONCE ONE Administration Sodium Chloride 1,000 mls @ 999 mls/hr 03/13/18 04:45 03/13/18 04:54 Sod Chlor 0.9% 1000ml Bag IV 03/13/18 05:45 999 mls/hr .Q1H1M MUNDO Administration Methylprednisolone Sodium Succinate 125 mg 03/13/18 04:57 03/13/18 04:59 Solu-Medrol 125mg/2ml Vial IV 03/13/18 04:58 125 mg ONCE ONE Administration Nitroglycerin 1 gm 03/13/18 05:23 03/13/18 05:28 Nitroglycerin 1 Inch Oint Udp TD 03/13/18 05:24 1 gm ONCE ONE Administration ORDERS Category Date Time Status XR chest portable Stat Exams 03/13/18 04:45 Taken Sputum Culture & Gram Stain Stat Micro 03/13/18 05:07 Results ECG Request by /Fanny Stat Y 03/13/18 04:45 Ordered - Radiology Data #1 Image(s): Chest Image Reviewed: Yes I reviewed the patient's radiology image Preliminary Findings: Abnormal (cm) - ECG Data Tracing #1 I reviewed this ECG and interpreted as documented below: Normal Sinus Rhythm: Yes Ischemic changes: non-specific ST-T wave changes - Physician Consults Physician Consulted: chapo Chest Pain [facility] - General Chief Complaint: Chest Pain Stated Complaint: Chest pain Time Seen by Provider: 03/13/18 04:40 Mode of Arrival: Ambulatory Source of Information: Patient, Medical Record Limitations: No Limitations Description of Symptoms (Recalled from ER Triage Doc. by RN): Pt reports chest pain that started about 1130 pm. He reports he drove himself to the hospital and sat in the parking lot and decided to come into the ER at this time because the pain wouldn't go away. - History of Present Illness HPI narrative: acute onset of ant chest pain around midnight with assoc nausea and he has hx of cad with stents complaint: chest pain indicative of cardiac Onset (ago): hour(s) Duration: now resolved Activity at onset: during rest Pain location: substernal Severity: moderate Quality: tightness Relieving factors: nothing Risk Factors for CAD: Hypertension, Family Hx of CAD Treatments prior to or on arrival for Cardiac Chest Pain: none - SATURNINO Score Non-Stemi Age of patient: 65 yrs or more Number of risk factors for CAD: Presence of 3 or more Prior coronary artery stenosis(seen in coronary angiography): Less than 50% ST-Segment deviation on ECG (more than 1 min): Absent Prior aspirin intake: ASA intake in the last 7 days Severe anginal chest pain: No or one episode in last 24 hours Elevated cardiac markers(CK-MB or troponin): Absent Non-Stemi Risk Score: 3 - Related Data Prior Cardiac Testing/Procedures: Stenting Home Medications Medication Instructions Recorded Confirmed Aspirin [Aspir 81] 81 mg PO DAILY 08/04/17 12/26/17 Atorvastatin Calcium [Atorvastatin 80 mg PO HS 08/04/17 12/26/17 80mg Tab] Gabapentin [Gabapentin 300mg Cap] 300 mg PO TID 08/04/17 12/26/17 Ondansetron HCl [Ondansetron 8mg 8 mg PO NEEDED PRN 08/04/17 12/26/17 Tab] Spironolactone [Spironolactone 50 mg PO BID 08/04/17 12/26/17 50mg Tab] sitagliptin 25 mg tablet 25 mg PO DAILY 08/22/17 12/26/17 Furosemide [Furosemide 20mg Tab] 20 mg PO DAILY 09/09/17 12/26/17 Omeprazole [Omeprazole 20mg Tab] 20 mg PO DAILY PRN 09/09/17 12/26/17 predniSONE [Prednisone 20mg 20 mg PO DAILY 12/26/17 12/26/17 Tab] Allergies Allergy/AdvReac Type Severity Reaction Status Date / Time No Known Allergies Allergy Verified 03/13/18 04:43 [facility] History I have reviewed the patient's past medical history: Yes Medical History: Reports:: Cancer, Coronary Artery Disease, Diabetes Mellitus Type 2, Gastroesophageal Reflux Disease(GERD), Heart Murmur, Hyperlipidemia, Hypertension, Myocardial Infarction, Osteoporosis, Renal Disease Denies:: Diabetes Mellitus Type 1, Internal Pacemaker, MRSA, Seizures Other Medical History: Reports: Anemia, Chemotherapy, Osteoporosis, Other. Denies: Blood Transfusion Reaction Comment: cardiac stints, lymphoma Laterality Cases: Bilateral: Other Other Surgeries: Yes: Cancer Surgery, Cardiac Surgery, Colonoscopy, Coronary Stent, Other. No: Pacemaker Amputation: No Fractures: No Comment: stomach tumor, cardiac stints - Social History Smoking Status: Never smoker Alcohol Intake: never Substance Use Type: denies use Occupational Status: retired, disabled Housing: house Household Members: significant other - Psychiatric History Expresses thoughts of harming self/others: None Suicide Plan Description: No Plan Family Hx:: Hypertension, Hyperlipidemia ROS Obtained: Yes All systems reviewed & no additional complaints - Constitutional Constitutional: Denies fever(s) - Eyes Eyes: Denies change in vision - ENT Ears, Nose, Mouth, and Throat: Denies sore throat - Cardiovascular Cardiovascular: Reports chest pain, Reports dyspnea - Respiratory Respiratory: No cough - Gastrointestinal Gastrointestingal: Reports: nausea, vomiting. Denies: abdominal pain, black, tarry stools - Genitourinary Male Genitourinary: Denies hematuria - Musculoskeletal Musculoskeletal: Denies joint pain, Denies joint swelling - Integumentary/Breasts Skin/Breast: Denies rash - Neurologic Neurologic: Denies headache(s), Denies seizure-like activity Physical Exam - General General appearance: in no apparent distress - Head Head exam: normocephalic - Eye Eye exam: Present: PERRL, EOMI - ENT ENT exam: Present: mucous membranes dry - Neck Neck exam: Present: trachea midline - Respiratory Respiratory exam: Present: normal lung sounds bilaterally. Absent: respiratory distress - Cardiovascular Cardiovascular exam: Present: regular rate, systolic murmur, +S4 - Abdominal Exam Abdominal exam: Present: soft. Absent: tenderness - Extremities Exam Extremities exam: Absent: calf tenderness - Neurological Exam Neurological exam: Present: alert, oriented X3, CN II-XII intact - Psychiatric Psychiatric exam: Present: normal affect - Skin Skin exam: Absent: rash
--- NOTE | 2018-03-13 07:23 | Pharmacy Consult Notes ---
[facility] Pharmacy VTE Monitoring - Patient Demographics Admission date: 03/13/18 Report Date: 03/13/18 Time: 07:23 Allergies/Adverse Reactions: Patient Allergies No Known Allergies Allergy (Verified 03/13/18 04:43) Height: 1.78 m Weight: 79.52 kg Patient Problems: Current Active Problems Chest pain (Acute) - VTE Risk Labs: VTE Related Lab Results Hgb 12.3 g/dL (14.1-18.0) L 03/13/18 04:40 Hct 38.7 % (42.0-52.0) L 03/13/18 04:40 Plt Count 225 K/mm3 (142-424) 03/13/18 04:40 BUN 17 mg/dL (7-18) 03/13/18 04:40 Creatinine 1.77 mg/dL (0.70-1.30) H 03/13/18 04:40 Estimated Creat Clear 41 mL/min (0-300) 03/13/18 04:40 - Prophylaxis VTE Prophylaxis Ordered?: Yes Types of VTE Prophylaxis: TEDS Knee High Location of Applied Device: Bilateral Lower Extremeties - VTE Diagnosis Confirmed Treatment or plan recommended: Continue Current Treatment
--- NOTE | 2018-03-13 08:08 | History & Physical Report ---
*Admission Date: 03/13/18 *Chief complaint: Chest pain *History of present illness: 77-year-old male with history of coronary artery disease status post previous stenting, non-Hodgkin's lymphoma, and CKD who presented early this morning to the emergency room with acute onset of midsternal chest "pressure". He states "it felt like there was a rock on my chest". Pain woke him from sleep at approximately midnight. Additionally he had some abdominal discomfort with nausea and vomiting. He initially drove to the ER, and sat in the parking lot in his car hoping the symptoms would resolve. When they did not improve he came to the ER. EKG revealed no acute ST segment changes and initial troponins are normal. He was taken off of his antiplatelet therapy except for an aspirin earlier this year due to recurrent bleeding. Cardiology was consulted for evaluation and recommendations as this patient has had history of in-stent stenosis in the past and symptoms suggestive of unstable angina Additional cardiac in health history obtained from cardiology consult note as follows: 1. Coronary disease A. Acute non-STEMI, 09/18/2016 B. Cardiac catheterization, 09/18/16, revealed acute thrombus formation in the proximal and midsection segment of the RIGHT coronary artery, 90 percent ostial circumflex lesion and 40 percent ostial left anterior descending lesion with followed by a 60-70 percent stenosis prior to the first septal welcome desk agent. Patient underwent thrombectomy with subsequent stenting 2 of the RIGHT coronary artery and circumflex artery. Residual left anterior descending disease will be reassessed in the near future. C. STEMI, 11/17/2016, with KITA X 2 placed to RCA. Left system not evaluated due to elevated Cr of 2.1. 2. Chronic kidney disease, creatinine 1.6 GFR 47 on admission, 09/18/16. A. Normal renal arteries, 08/2016, renal angiogram performed at the time of cardiac cath. 3. Hypertension A. Echo, 08/2016, Normal LV size and function with grade 1 diastolic dysfunction. Moderate Aortic stenosis with trace AI. 4. Aortic stenosis, moderate, by echo 08/2016. 5. Diabetes mellitus, treated for one year with insulin 6. Hyperlipidemia 7. 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 Family history of coronary artery disease 9. History of colon cancer with partial colon resection, 1993. A. Recurrence in 2005 and 2011, Treated with chemotherapy only. 10. Lymphoma, on therapy [facility] History Medical History: Reports:: Cancer, Coronary Artery Disease, Diabetes Mellitus Type 2, Gastroesophageal Reflux Disease(GERD), Heart Murmur, Hyperlipidemia, Hypertension, Myocardial Infarction, Osteoporosis, Renal Disease Denies:: Diabetes Mellitus Type 1, Internal Pacemaker, MRSA, Seizures Other Medical History: Reports: Anemia, Chemotherapy, Osteoporosis, Other. Denies: Blood Transfusion Reaction Laterality Cases: Left: ACL Repair, Bilateral: Other Other Surgeries: Yes: Cancer Surgery, Cardiac Surgery, Colonoscopy, Coronary Stent, Other. No: Pacemaker Amputation: No Fractures: No - *Social History Educational Level: Completed Grade School Smoking Status: Never smoker Alcohol Intake: never Substance Use Type: denies use Occupational Status: retired, disabled Housing: house Household Members: significant other - Psychiatric History Expresses thoughts of harming self/others: None Suicide Plan Description: No Plan *Family Hx:: Cancer, Heart Attack, Hyperlipidemia, Hypertension Review of Systems - *Neurologic Denies headache(s), Denies seizure-like activity Meds Home Medications Medication Instructions Recorded Confirmed Type Aspirin [Aspir 81] 81 mg PO DAILY 08/04/17 03/13/18 History Atorvastatin Calcium [Atorvastatin 80 mg PO HS 08/04/17 03/13/18 History 80mg Tab] Gabapentin [Gabapentin 300mg Cap] 300 mg PO TID 08/04/17 03/13/18 History sitagliptin 25 mg tablet 25 mg PO DAILY 08/22/17 03/13/18 History Furosemide [Furosemide 20mg Tab] 20 mg PO DAILY 09/09/17 03/13/18 History Omeprazole [Omeprazole 20mg Tab] 20 mg PO DAILY PRN 09/09/17 03/13/18 History Ondansetron HCl 8 mg PO TIDP PRN 03/13/18 03/13/18 History Spironolactone 50 mg PO BID 03/13/18 03/13/18 History Allergies Allergy/AdvReac Type Severity Reaction Status Date / Time No Known Allergies Allergy Verified 03/13/18 04:43 Exam Vital signs and Labs for Last 24 Hours: Temp Pulse Resp BP Pulse Ox 98.6 F 74 20 117/58 94 L 03/13/18 06:55 03/13/18 06:55 03/13/18 06:55 03/13/18 06:55 03/13/18 06:55 Laboratory Results - last 24 hr 03/13/18 04:40: WBC 6.3, RBC 4.41 L, Hgb 12.3 L, Hct 38.7 L, MCV 87.7, MCH 27.9 , MCHC 31.8, RDW 16.3, Plt Count 225, MPV 8.2, Neut % (Auto) 82.7 H, Lymph % ( Auto) 9.8 L, [place] % (Auto) 6.0, Eos % (Auto) 1.3, Baso % (Auto) 0.1, Neut # ( Auto) 5.2, Lymph # (Auto) 0.6 L, [place] # (Auto) 0.4, Eos # (Auto) 0.1, Baso # ( Auto) 0.0 03/13/18 04:40: Sodium 139, Potassium 4.2, Chloride 105, Carbon Dioxide 23, Anion Gap 15.2 H, BUN 17, Creatinine 1.77 H, Estimated Creat Clear 41, Estimated GFR 38 L, Est GFR ( Amer) 45 L, Glucose 204 H, Calcium 8.7, Troponin I < 0.02 03/13/18 07:25: Troponin I < 0.02 I & O for Last 24 hours: Intake & Output 03/10/18 03/11/18 03/12/18 03/13/18 23:59 23:59 23:59 23:59 Weight 79.52 kg Microbiology Reports for the Last 24 Hours: Microbiology 03/13/18 05:07 Sputum - Expectorated Sputum Gram Stain - Final - *Routine HEENT Exam Head: Present: normocephalic, atraumatic Eye: Present: EOMI, PERRL ENT: Present: mucous membranes moist Comments: Edentulous - *Routine Neck Exam Present: supple. Absent: JVD, lymphadenopathy - *Routine Respiratory Exam Present: CTA bilaterally. Absent: accessory muscle use, prolonged expiratory phase, wheezes - *Routine Cardiovascular Exam Present: Normal S2, murmur (Holosystolic crescendo decrescendo murmur grade 3/6) , irregularly irregular - *Routine Abdominal Exam Present: soft, normoactive bowel sounds. Absent: tenderness - *Routine Rectal Exam Patient deferred: visual exam - *Routine Exam Patient deferred: penile exam - *Routine Extremities Exam Present: edema (Trace). Absent: cyanosis, clubbing - *Routine Skin Exam Present: intact. Absent: cyanosis, erythema - *Routine Neurological Exam Present: alert, oriented X3, CN II-XII intact - Routine Psychiatric Exam Present: normal affect, cooperative, good insight H&P: Result - Labs Labs: Short CBC 03/13/18 Range/Units 04:40 WBC 6.3 (4.8-10.8) K/mm3 Hgb 12.3 L (14.1-18.0) g/dL Hct 38.7 L (42.0-52.0) % Plt Count 225 (142-424) K/mm3 BMP 03/13/18 04:40 Sodium 139 Potassium 4.2 Chloride 105 Carbon Dioxide 23 BUN 17 Creatinine 1.77 H Glucose 204 H Calcium 8.7 Cardiac Enzymes 03/13/18 03/13/18 Range/Units 04:40 07:25 Troponin I < 0.02 < 0.02 (0.00-0.06) ng/ml Assessment and Plan (1) CHF (congestive heart failure) Current visit: Yes Status: Chronic Qualifiers: Heart failure type: diastolic Category: Medical Code(s): I50.9 - Heart failure, unspecified (2) Renal insufficiency Current visit: No Status: Chronic Category: Medical Code(s): N28.9 - Disorder of kidney and ureter, unspecified (3) Lymphoma Current visit: No Status: Chronic Category: Medical Code(s): C85.90 - Non- Hodgkin lymphoma, unspecified, unspecified site (4) Chest pain Current visit: Yes Status: Acute Qualifiers: Chest pain type: precordial pain Qualified Code(s): R07.2 - Precordial pain Category: Medical Code(s): R07.9 - Chest pain, unspecified (5) Diabetes mellitus Current visit: No Status: Chronic Category: Medical Code(s): E11.9 - Type 2 diabetes mellitus without complications (6) HTN (hypertension) Current visit: No Status: Chronic Category: Medical Code(s): I10 - Essential (primary) hypertension (7) HLD (hyperlipidemia) Current visit: No Status: Chronic Category: Medical Code(s): E78.5 - Hyperlipidemia, unspecified (8) Aortic valve stenosis Current visit: No Status: Chronic Category: Medical Code(s): I35.0 - Nonrheumatic aortic (valve) stenosis (9) CAD (coronary artery disease) Current visit: No Status: Chronic Category: Medical Code(s): I25.10 - Atherosclerotic heart disease of [place] coronary artery without angina pectoris - Assessment and plan all Dx Assessment and Plan for all problems:: 77-year-old male with extensive cardiac history, aortic stenosis, previous stent placement 4, CKD, non-Hodgkin's lymphoma who presents with unstable angina. Cardiology consulted, appreciate recommendations. -No EKG or troponin changes, responded to nitroglycerin -Maintain n.p.o. status -Plan for heart cath -Monitor labs daily -Avoid nephrotoxic's in setting of CKD -Continue home medications
--- NOTE | 2018-03-13 08:58 | Consult Report ---
History of Present Illness Consult date: 03/13/18 Requesting physician: Wally Green Consult reason: chest pain Chief complaint: chest pain Additional Medical History:: 1. Coronary disease A. Acute non-STEMI, 09/18/2016 B. Cardiac catheterization, 09/18/16, revealed acute thrombus formation in the proximal and midsection segment of the RIGHT coronary artery, 90 percent ostial circumflex lesion and 40 percent ostial left anterior descending lesion with followed by a 60-70 percent stenosis prior to the first septal associate store manager. Patient underwent thrombectomy with subsequent stenting 2 of the RIGHT coronary artery and circumflex artery. Residual left anterior descending disease will be reassessed in the near future. C. STEMI, 11/17/2016, with KITA X 2 placed to RCA. Left system not evaluated due to elevated Cr of 2.1. 2. Chronic kidney disease, creatinine 1.6 GFR 47 on admission, 09/18/16. A. Normal renal arteries, 08/2016, renal angiogram performed at the time of cardiac cath. 3. Hypertension A. Echo, 08/2016, Normal LV size and function with grade 1 diastolic dysfunction. Moderate Aortic stenosis with trace AI. 4. Aortic stenosis, moderate, by echo 08/2016. 5. Diabetes mellitus, treated for one year with insulin 6. Hyperlipidemia 7. 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 Family history of coronary artery disease 9. History of colon cancer with partial colon resection, 1993. A. Recurrence in 2005 and 2011, Treated with chemotherapy only. 10. Lymphoma, on therapy History of present illness: 77-year-old white male with known coronary artery disease and previous coronary stenting, lymphoma and chronic kidney disease presented to the emergency department for evaluation of acute onset of chest and upper abdominal discomfort as a febrile course sitting on him. Symptoms woke him from sleep at around midnight and persisted despite vomiting and taking Pepto-Bismol. Patient drove himself to the hospital for evaluation but sat in the emergency department for a while before deciding to come inside for evaluation. EKG revealed no acute ST segment changes and initial troponin has been normal. Patient has been taken off of antiplatelet therapy except for an aspirin earlier this year due to recurrent bleeding. Symptoms that occurred last evening were very similar to his previous angina symptoms. Cardiology consulted for evaluation recommendations. [facility] History Medical History: Reports:: Cancer, Coronary Artery Disease, Diabetes Mellitus Type 2, Gastroesophageal Reflux Disease(GERD), Heart Murmur, Hyperlipidemia, Hypertension, Myocardial Infarction, Osteoporosis, Renal Disease Denies:: Diabetes Mellitus Type 1, Internal Pacemaker, MRSA, Seizures Other Medical History: Reports: Anemia, Chemotherapy, Osteoporosis, Other. Denies: Blood Transfusion Reaction Laterality Cases: Left: ACL Repair, Bilateral: Other Other Surgeries: Yes: Cancer Surgery, Cardiac Surgery, Colonoscopy, Coronary Stent, Other. No: Pacemaker Amputation: No Fractures: No - *Social History Educational Level: Completed Grade School Smoking Status: Never smoker Alcohol Intake: never Substance Use Type: denies use Occupational Status: retired, disabled Housing: house Household Members: significant other - Psychiatric History Expresses thoughts of harming self/others: None Suicide Plan Description: No Plan *Family Hx:: Cancer, Heart Attack, Hyperlipidemia, Hypertension Meds Home Medications Medication Instructions Recorded Confirmed Type Aspirin [Aspir 81] 81 mg PO DAILY 08/04/17 03/13/18 History Atorvastatin Calcium [Atorvastatin 80 mg PO HS 08/04/17 03/13/18 History 80mg Tab] Gabapentin [Gabapentin 300mg Cap] 300 mg PO TID 08/04/17 03/13/18 History sitagliptin 25 mg tablet 25 mg PO DAILY 08/22/17 03/13/18 History Furosemide [Furosemide 20mg Tab] 20 mg PO DAILY 09/09/17 03/13/18 History Omeprazole [Omeprazole 20mg Tab] 20 mg PO DAILY PRN 09/09/17 03/13/18 History Ondansetron HCl 8 mg PO TIDP PRN 03/13/18 03/13/18 History Spironolactone 50 mg PO BID 03/13/18 03/13/18 History Allergies Allergy/AdvReac Type Severity Reaction Status Date / Time No Known Allergies Allergy Verified 03/13/18 04:43 Review of Systems - *Cardiovascular Reports chest pain - *Respiratory Reports shortness of breath with activity - *Gastrointestinal Reports abdominal pain - *Genitourinary Denies difficulty urinating - *Musculoskeletal Denies joint pain - *Neurologic Denies headache(s), Denies seizure-like activity Exam Vital signs and Labs for Last 24 Hours: Temp Pulse Resp BP Pulse Ox 98.4 F 73 18 113/60 97 03/13/18 08:00 03/13/18 08:00 03/13/18 08:00 03/13/18 08:00 03/13/18 08:00 Laboratory Results - last 24 hr 03/13/18 04:40: WBC 6.3, RBC 4.41 L, Hgb 12.3 L, Hct 38.7 L, MCV 87.7, MCH 27.9 , MCHC 31.8, RDW 16.3, Plt Count 225, MPV 8.2, Neut % (Auto) 82.7 H, Lymph % ( Auto) 9.8 L, [place] % (Auto) 6.0, Eos % (Auto) 1.3, Baso % (Auto) 0.1, Neut # ( Auto) 5.2, Lymph # (Auto) 0.6 L, [place] # (Auto) 0.4, Eos # (Auto) 0.1, Baso # ( Auto) 0.0 03/13/18 04:40: Sodium 139, Potassium 4.2, Chloride 105, Carbon Dioxide 23, Anion Gap 15.2 H, BUN 17, Creatinine 1.77 H, Estimated Creat Clear 41, Estimated GFR 38 L, Est GFR ( Amer) 45 L, Glucose 204 H, Calcium 8.7, Troponin I < 0.02 03/13/18 07:25: Troponin I < 0.02 I & O for Last 24 hours: Intake & Output 03/10/18 03/11/18 03/12/18 03/13/18 11:59 11:59 11:59 11:59 Weight 175 lb 5 oz Microbiology Reports for the Last 24 Hours: Microbiology 03/13/18 05:07 Sputum - Expectorated Sputum Gram Stain - Final - *Routine Neck Exam Present: carotid bruit - *Routine Respiratory Exam Present: CTA bilaterally - *Routine Cardiovascular Exam Present: RRR, murmur. Absent: gallop, rubs - *Routine Abdominal Exam Present: tenderness - *Routine Extremities Exam Present: edema - *Routine Neurological Exam Present: alert, oriented X3, moving all extremities Assessment and Plan (1) Angina at rest Current visit: Yes Status: Acute Category: Medical Code(s): I20.8 - Other forms of angina pectoris (2) Aortic valve stenosis Current visit: No Status: Chronic Category: Medical Code(s): I35.0 - Nonrheumatic aortic (valve) stenosis (3) CAD (coronary artery disease) Current visit: No Status: Chronic Category: Medical Code(s): I25.10 - Atherosclerotic heart disease of [place] coronary artery without angina pectoris (4) Diabetes mellitus Current visit: No Status: Chronic Category: Medical Code(s): E11.9 - Type 2 diabetes mellitus without complications (5) HLD (hyperlipidemia) Current visit: No Status: Chronic Category: Medical Code(s): E78.5 - Hyperlipidemia, unspecified (6) HTN (hypertension) Current visit: No Status: Chronic Category: Medical Code(s): I10 - Essential (primary) hypertension (7) Renal insufficiency Current visit: No Status: Chronic Category: Medical Code(s): N28.9 - Disorder of kidney and ureter, unspecified - Assessment and plan all Dx Assessment and Plan for all problems:: In setting of DM, CAD and angina pectoris at rest with SATURNINO score of at least 3 , will recommend repeat LHC. Risks, benefits and procedure discussed with patient and he agrees to proceed. Further recommendations to follow. Repeat echo to follow up on aortic stenosis.
--- NOTE | 2018-03-13 21:34 | Cardiology Report ---
PROCEDURE: 2-D M-mode and color Doppler study INDICATIONS FOR THE TEST: Chest pain X COPD Heart Murmur Tobacco Smoking Palpitations Fatigue Syncope Edema HypertensionXDiabetes MellitusX Rheumatic Fever SOBXDOE Obesity HyperlipidemiaX Family History HD Additional History CAD,AF PATIENT INFORMATION HEIGHT: 70 WEIGHT:178 GENDER: Male B/P:120/57 2-D/M-MODE INTERPRETATION: 2-D MEASUREMENTS OBSERVED VALUES IN CMS Right Ventricular Dimension (RVDd) 1.4 Interventricular Septum (Thickness)(IVsd) 1.1 Left Ventricular Internal Dimensions(LVIDd) 5.7 Left Ventricular Posterior Wall (Thickness)(LVPWd) 1.1 Aortic Root 4.0 Aortic Cusp Separation 1.2 Left Atrial Dimensions (LAD) 3.3 2D 1. Left atrium is mildly enlarged, left ventricle is normal size, visually estimated ejection fraction 55% with no obvious regional wall motion abnormality. 2. The right atrium and right ventricle are normal size and contractility. 3. The aortic root is mildly enlarged, the aortic valve is heavily thickened and calcified with severe restriction the leaflet mobility. 4. The mitral and tricuspid valve leaflets are minimally thickened. 5. The pulmonic valve is poorly visualized. 6. No significant pericardial effusion noted. DOPPLER INTERROGATION: Doppler interrogation of the aortic, mitral and tricuspid valvular presence of mild mitral and tricuspid regurgitation, tricuspid and jet velocity insufficient for calculation of the right ventricular systolic pressure, aortic out flow velocity as well as the mean gradient in the valve area is not accurately calculated in this study, morphologically there is severe aortic stenosis, a repeat study with better Doppler technique is recommended to assess the severity of the aortic stenosis. CONCLUSION: 1. Mildly enlarged left atrium, normal left ventricular size, mild concentric left ventricular hypertrophy, visually estimated ejection fraction 55% with no obvious regional wall motion abnormality, diastolic parameters are inconclusive. 2. Thickened and calcified aortic valve is described above, morphologically there appears to be severe aortic stenosis, valve area is not accurately calculated in this study, a repeat study with better Doppler technique is recommended to assess the severity of the aortic stenosis. 3. Mild mitral and tricuspid regurgitation 4. No significant pericardial effusion noted.
[2018-03-14 05:58] LABS: Basophils % 0.1 % (0.1-2.0); Eosinophils % 0.1 % (0.1-12.0); Hematocrit 27.6 % (42.0-52.0); Hemoglobin 8.9 g/dL (14.1-18.0); Lymphocytes # 0.4 K/mm3 (0.7-4.5); Lymphocytes % 6.3 K/mm3 (10-50); Mean Corpuscular HGB Conc 32.1 g/dL (31.8-35.4); Mean Corpuscular Hemoglobin 28.2 pg (27.0-31.2); Mean Corpuscular Volume 87.8 fl (80-94); Mean Platelet Volume 8.6 fl (7.4-10.4); Monocytes # 0.6 K/mm3 (0.1-1.0); Monocytes % 9.3 % (1.7-9.3); Neutrophils # 5.6 K/mm3 (1.8-7.8); Neutrophils % 84.2 % (37.0-80.0); Platelet Count 155 K/mm3 (142-424); Red Blood Count 3.14 M/mm3 (4.60-6.20); Red Cell Distribution Width 16.3 % (11.5-17.5); White Blood Count 6.7 K/mm3 (4.8-10.8)
[2018-03-14 06:08] LABS: Anion Gap 10.4 mEq/L (5-15); Potassium 4.4 mmoL/L (3.5-5.1)
--- NOTE | 2018-03-14 07:44 | Discharge Summary ---
General - General Admission date:: 03/13/18 Discharge date: 03/14/18 HPI HPI: 77-year-old male with history of coronary artery disease status post previous stenting, non-Hodgkin's lymphoma, and CKD who presented early this morning to the emergency room with acute onset of midsternal chest "pressure". He states "it felt like there was a rock on my chest". Pain woke him from sleep at approximately midnight. Additionally he had some abdominal discomfort with nausea and vomiting. He initially drove to the ER, and sat in the parking lot in his car hoping the symptoms would resolve. When they did not improve he came to the ER. EKG revealed no acute ST segment changes and initial troponins are normal. He was taken off of his antiplatelet therapy except for an aspirin earlier this year due to recurrent bleeding. Cardiology was consulted for evaluation and recommendations as this patient has had history of in-stent stenosis in the past and symptoms suggestive of unstable angina Additional cardiac in health history obtained from cardiology consult note as follows: 1. Coronary disease A. Acute non-STEMI, 09/18/2016 B. Cardiac catheterization, 09/18/16, revealed acute thrombus formation in the proximal and midsection segment of the RIGHT coronary artery, 90 percent ostial circumflex lesion and 40 percent ostial left anterior descending lesion with followed by a 60-70 percent stenosis prior to the first septal event operations manager. Patient underwent thrombectomy with subsequent stenting 2 of the RIGHT coronary artery and circumflex artery. Residual left anterior descending disease will be reassessed in the near future. C. STEMI, 11/17/2016, with KITA X 2 placed to RCA. Left system not evaluated due to elevated Cr of 2.1. 2. Chronic kidney disease, creatinine 1.6 GFR 47 on admission, 09/18/16. A. Normal renal arteries, 08/2016, renal angiogram performed at the time of cardiac cath. 3. Hypertension A. Echo, 08/2016, Normal LV size and function with grade 1 diastolic dysfunction. Moderate Aortic stenosis with trace AI. 4. Aortic stenosis, moderate, by echo 08/2016. 5. Diabetes mellitus, treated for one year with insulin 6. Hyperlipidemia 7. 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 Family history of coronary artery disease 9. History of colon cancer with partial colon resection, 1993. A. Recurrence in 2005 and 2011, Treated with chemotherapy only. 10. Lymphoma, on therapy Hospital Course Hospital Course: Patient was admitted, given his significant symptoms he was taken to left heart catheterization procedure yesterday, and reported that is copied in the document as noted below: ANGIOGRAPHIC RESULTS: 1. The left main artery normal 2. The left anterior descending artery has a proximal concentric 60% stenosis. The LAD is a very large vessel and collateralizes the distal dominant right coronary artery 3. The circumflex artery circumflex artery is a nondominant vessel and has proximal 30-40% and mid vessel stenoses. The ramus intermedius has proximal 30% stenoses 4. The right coronary artery is a dominant vessel proximally occluded and fills via left to right collaterals 5. The [place] ventriculogram reveals preserved 55% 6. The left ventricular end-diastolic pressure 20 mmHg IMPRESSION: 1. Coronary artery disease as described above 2. I would strongly recommend medical management at this time. I don't believe opening the right coronary arteries advantageous given patient's preserved ejection fraction and nice left right collaterals. I would recommend cardiac rehabilitation and maximizing medical management. 3. At some point in the future the proximal LAD will probably require revascularization because of its collateralization to the right coronary artery however I feel it is not causing patient's symptoms. PLAN: 1. Medical management 2. Maximize antianginal medications 3. Nitrates and Ranexa beta blockers calcium channel blockers 4. Cardiac rehabilitation 5. Avoidance of tobacco products Patient did well after the catheterization procedure and this morning feels well without chest pain. Plan will be to discharge home with nitrates, dual antiplatelet therapy with Plavix, close follow-up in our offices in [place] next week and with Dr. Wild. Objective Vital signs: Temp Pulse Resp BP Pulse Ox 98.0 F 66 16 120/58 95 03/14/18 05:07 03/14/18 05:07 03/14/18 05:07 03/14/18 05:07 03/14/18 05:07 Narrative: Oropharynx clear, mucous membranes moist. ENT exam otherwise clear, no JVD. Heart rate regular with 3/6 holosystolic murmur as previously. Lungs have rhonchi but good air movement, abdomen soft, no edema. Results Labs on day of discharge: Labs from last 24 hours 03/14/18 03/14/18 03/13/18 05:33 05:33 20:37 WBC 6.7 RBC 3.14 L D Hgb 8.9 L Hct 27.6 L MCV 87.8 MCH 28.2 MCHC 32.1 RDW 16.3 Plt Count 155 D MPV 8.6 Neut % (Auto) 84.2 H Lymph % (Auto) 6.3 L [place] % (Auto) 9.3 Eos % (Auto) 0.1 Baso % (Auto) 0.1 Neut # (Auto) 5.6 Lymph # (Auto) 0.4 L [place] # (Auto) 0.6 Eos # (Auto) 0.0 Baso # (Auto) 0.0 Activated Clotting Time Sodium 139 Potassium 4.4 Chloride 109 H Carbon Dioxide 24 Anion Gap 10.4 BUN 26 H D Creatinine 1.70 H Estimated Creat Clear 41 Estimated GFR 39 L Est GFR ( Amer) 48 L Glucose 190 H POC Glucose 311 H* Calcium 8.0 L Troponin I 03/13/18 03/13/18 03/13/18 17:02 14:07 09:20 WBC RBC Hgb Hct MCV MCH MCHC RDW Plt Count MPV Neut % (Auto) Lymph % (Auto) [place] % (Auto) Eos % (Auto) Baso % (Auto) Neut # (Auto) Lymph # (Auto) [place] # (Auto) Eos # (Auto) Baso # (Auto) Activated Clotting Time 164 H* Sodium Potassium Chloride Carbon Dioxide Anion Gap BUN Creatinine Estimated Creat Clear Estimated GFR Est GFR ( Amer) Glucose POC Glucose 305 H* Calcium Troponin I < 0.02 03/13/18 07:25 WBC RBC Hgb Hct MCV MCH MCHC RDW Plt Count MPV Neut % (Auto) Lymph % (Auto) [place] % (Auto) Eos % (Auto) Baso % (Auto) Neut # (Auto) Lymph # (Auto) [place] # (Auto) Eos # (Auto) Baso # (Auto) Activated Clotting Time Sodium Potassium Chloride Carbon Dioxide Anion Gap BUN Creatinine Estimated Creat Clear Estimated GFR Est GFR ( Amer) Glucose POC Glucose Calcium Troponin I < 0.02 Preliminary micro results at discharge 03/13/18 05:07 Sputum Culture - Preliminary Sputum - Expectorated Sputum DS: Diagnosis - Discharge Diagnosis (1) CHF (congestive heart failure) Status: Chronic (2) Renal insufficiency Status: Chronic (3) Lymphoma Status: Chronic (4) Chest pain Status: Resolved (5) Diabetes mellitus Status: Chronic (6) HTN (hypertension) Status: Chronic (7) HLD (hyperlipidemia) Status: Chronic (8) Aortic valve stenosis Status: Chronic (9) CAD (coronary artery disease) Status: Chronic Discharge Plan - Patient Discharge Instructions ACTIVITY: Continue current activity DIET: continue same diet - Follow up Plan Follow up with: James Wild MD [Staff Physician] - 1 week Wally Green MD [Staff Physician] - 03/22/18 Disposition: Home, Self-Halfway Medications: Home Medications Medication Instructions Recorded Confirmed Type Aspirin [Aspir 81] 81 mg PO DAILY 08/04/17 03/13/18 History Atorvastatin Calcium [Atorvastatin 80 mg PO HS 08/04/17 03/13/18 History 80mg Tab] Gabapentin [Gabapentin 300mg Cap] 300 mg PO TID 08/04/17 03/13/18 History sitagliptin 25 mg tablet 25 mg PO DAILY 08/22/17 03/13/18 History Furosemide [Furosemide 20mg Tab] 20 mg PO DAILY 09/09/17 03/13/18 History Omeprazole [Omeprazole 20mg Tab] 20 mg PO DAILY PRN 09/09/17 03/13/18 History Ondansetron HCl 8 mg PO TIDP PRN 03/13/18 03/13/18 History Spironolactone 50 mg PO BID 03/13/18 03/13/18 History Prescriptions/Medication Reconciliation: New Isosorbide Mononitrate [Imdur 30mg ER tablet] 30 mg OP DAILY #30 tab.er.24h Clopidogrel Bisulfate [Plavix 75mg Tab] 75 mg PO DAILY #30 tab Continue sitagliptin 25 mg tablet 25 mg PO DAILY Gabapentin [Gabapentin 300mg Cap] 300 mg PO TID Atorvastatin Calcium [Atorvastatin 80mg Tab] 80 mg PO HS Aspirin [Aspir 81] 81 mg PO DAILY Omeprazole [Omeprazole 20mg Tab] 20 mg PO DAILY PRN PRN Reason: Heartburn Spironolactone 50 mg PO BID Ondansetron HCl 8 mg PO TIDP PRN PRN Reason: Nausea And Vomiting Furosemide [Furosemide 20mg Tab] 20 mg PO DAILY
== END 2018-03-14 09:18 | disposition home or self-care (01) ==
LOC: ER 04:38 → 2ND 04:38
PROVIDERS: ADMIT Internal Medicine Adolescent Medicine; ATTEND Internal Medicine Adolescent Medicine

== ENCOUNTER → 2018-04-06 06:45 | Outpatient (CLI) | payer MEDICARE, SELFPAY ==
--- NOTE | 2018-04-06 | CT_ITS ---
CT chest wo con HISTORY: Follow-up lymphoma, pulmonary nodule, follow-up chemotherapy treatment ITS.REASON: LYMPHOMA, PULMONARY NODULE ORDERING PHYSICIAN: Familia Bishop PATIENT AGE: 77 years COMPARISON: 12/18/2017 Technique: Axial images obtained with sagittal and coronal reformats. All CT scans at the facility use one or more dose reduction, viz: automated exposure control, ma/kV adjustment per patient size (including targeted exams where dose is matched to indication, i.e. head), or iterative reconstruction technique. FINDINGS: No mediastinal or hilar mass or adenopathy is evident. There are partially calcified mediastinal lymph nodes. Coronary artery calcifications and/or stents noted. Contrast is present within the esophagus consistent with reflux. There is some calcification of the aortic valve. No effusions or infiltrates. There is diffuse prominence of the interstitium with a reticular nodular pattern of the pulmonary parenchyma. Multiple small calcified and noncalcified nodules are once again noted unchanged There is prominent perihilar bronchial thickening. As well as interlobular septal thickening in the lung bases. There is bilateral gynecomastia. No bony destructive process or acute fracture. IMPRESSION: Overall stable CT appearance of the chest. No significant change in the interstitial thickening, interstitial lung disease, and multiple small pulmonary nodules. No evidence of recurrent adenopathy
--- NOTE | 2018-04-06 | CT_ITS ---
CT abdomen pelvis wo con CLINICAL INDICATION: Follow-up lymphoma ITS.REASON: LYMPHOMA ORDERING PHYSICIAN: Familia Bishop PATIENT AGE: 77 years COMPARISON: 12/18/2017 TECHNIQUE: Axial images obtained with sagittal and coronal reformats. All CT scans at the facility use one or more dose reduction, viz: automated exposure control, ma/kV adjustment per patient size (including targeted exams where dose is matched to indication, i.e. head), or iterative reconstruction technique. PROCEDURE: IV Contrast: none Oral Contrast: Redicat. FINDINGS: Liver surface is irregular with mild prominence of the left hepatic lobe consistent with cirrhosis. No focal space-occupying lesions evident. Gallstones are present. No biliary ductal dilatation. The spleen is mildly enlarged at 14 cm. The adrenal glands, pancreas, and kidneys have an unremarkable appearance. There are a few small mesenteric and retroperitoneal lymph nodes which are not significantly changed. No intestinal obstruction or free air. No evidence of appendicitis or diverticulitis. There remains some mild thickening of the mesenteric fat and anterior pararenal fascia. Slightly improved compared to the previous exam. There is a small supraumbilical hernia which contains fat. Surgical clips are present in the mid abdominal region. There is a moderate amount retained colonic feces. No pelvic mass or abnormal fluid collection or focal pelvic inflammatory change. No acute bony findings. No bony destructive process. IMPRESSION: 1. Overall stable CT appearance of the abdomen. No evidence of recurrent lymphoma. 2. FINDINGS consistent with cirrhosis with slight improvement in the edema within the mesentery's IMPRESSION:
[2018-04-06 07:33] LABS: Blood Urea Nitrogen 27 mg/dL (7-18); Creatinine,Serum 1.96 mg/dL (0.70-1.30); Estimated Glomerular Filt Rate 33 ml/min (>60); GFR (African American) 40 ML/MIN (>60)
== END ==
PROVIDERS: PCP Internal Medicine Adolescent Medicine; Visit Provider Internal Medicine Hematology & Oncology
DX: Z85.79 Personal history of other malignant neoplasms of lymphoid, hematopoietic and related tissues (principal); R91.8 Other nonspecific abnormal finding of lung field
CPT/HCPCS: 36415; 71250; 74176; 82565; 84520

== ENCOUNTER → 2018-05-17 15:50 | Outpatient (CLI) | payer MEDICARE, SELFPAY ==
[2018-05-17 16:47] LABS: Anion Gap 12.5 mEq/L (5-15); Blood Urea Nitrogen 16 mg/dL (7-18); Calcium 7.8 mg/dL (8.5-10.1); Carbon Dioxide 28 mmol/L (21.0-32.0); Chloride 104 mmol/L (98-107); Creatinine,Serum 1.69 mg/dL (0.70-1.30); Estimated Glomerular Filt Rate 40 ml/min (>60); GFR (African American) 48 ML/MIN (>60); Glucose 219 mg/dL (74-106); Potassium 4.5 mmoL/L (3.5-5.1); Sodium 140 mmol/L (136-145)
[2018-05-17 19:21] LABS: Basophils % 0.7 % (0.1-2.0); Eosinophils # 0.1 K/mm3 (0.0-0.4); Eosinophils % 2.7 % (0.1-12.0); Hematocrit 29.5 % (42.0-52.0); Hemoglobin 9.4 g/dL (14.1-18.0); Lymphocytes # 0.2 K/mm3 (0.7-4.5); Mean Corpuscular HGB Conc 31.9 g/dL (31.8-35.4); Mean Corpuscular Hemoglobin 28.8 pg (27.0-31.2); Mean Corpuscular Volume 90.5 fl (80-94); Mean Platelet Volume 7.7 fl (7.4-10.4); Monocytes # 0.3 K/mm3 (0.1-1.0); Monocytes % 11.5 % (1.7-9.3); Neutrophils # 1.6 K/mm3 (1.8-7.8); Neutrophils % 74.2 % (37.0-80.0); Platelet Count 239 K/mm3 (142-424); Red Blood Count 3.26 M/mm3 (4.60-6.20); Red Cell Distribution Width 17.9 % (11.5-17.5); White Blood Count 2.1 K/mm3 (4.8-10.8)
== END ==
PROVIDERS: PCP Internal Medicine Adolescent Medicine; Visit Provider Otolaryngology
DX: Z01.818 Encounter for other preprocedural examination; C76.0 Malignant neoplasm of head, face and neck
CPT/HCPCS: 36415; 80048; 85025; 93005

== ENCOUNTER → 2018-08-31 10:53 | Outpatient (CLI) | payer MEDICARE, SELFPAY ==
[2018-08-31 14:49] LABS: Alanine Aminotransferase 25 U/L (12-78); Albumin Level 2.2 gm/dL (3.4-5.0); Albumin/Globulin Ratio 0.8 (1.1-1.8); Alkaline Phosphatase 153 U/L (46-116); Anion Gap 16.4 mEq/L (5-15); Aspartate Amino Transferase 32 U/L (15-37); Bilirubin,Total 0.7 mg/dL (0.2-1.0); Blood Urea Nitrogen 18 mg/dL (7-18); Calcium 7.8 mg/dL (8.5-10.1); Carbon Dioxide 23 mmol/L (21.0-32.0); Chloride 98 mmol/L (98-107); Chol/HDL Ratio 2.2 (1-3.5); Cholesterol 95 mg/dL (140-200); Creatinine,Serum 1.84 mg/dL (0.70-1.30); Estimated Glomerular Filt Rate 36 ml/min (>60); GFR (African American) 43 ML/MIN (>60); Globulin 2.7 gm/dl (1.3-3.2); Glucose 146 mg/dL (74-106); HDL Cholesterol 44 mg/dL (27-67); LDL Cholesterol 38 mg/dL (0-130); Potassium 4.4 mmoL/L (3.5-5.1); Sodium 133 mmol/L (136-145); Total Protein,Serum 4.9 gm/dL (6.4-8.2); Triglycerides 63 mg/dL (30-200); Uric Acid 4.5 mg/dL (2.6-7.2); VLDL Cholesterol 13 mg/dL (0-40)
[2018-09-01 07:15] LABS: Creatinine, Urine 153.5 mg/dL (Not Estab.); Microalbumin, Urine 3.8 ug/mL (Not Estab.)
== END ==
PROVIDERS: PCP Nurse Practitioner Family; Visit Provider Nurse Practitioner Family
DX: E11.41 Type 2 diabetes mellitus with diabetic mononeuropathy (principal); E78.5 Hyperlipidemia, unspecified; E79.0 Hyperuricemia without signs of inflammatory arthritis and tophaceous disease
CPT/HCPCS: 36415; 80053; 80061; 82043; 82570; 83036; 84550

== ENCOUNTER → 2018-09-16 10:07 | Observation (INO) ==
[2018-09-15 01:53] LABS: Basophils % 0.5 % (0.1-2.0); Eosinophils # 0.3 K/mm3 (0.0-0.4); Eosinophils % 3.8 % (0.1-12.0); Lymphocytes # 0.7 K/mm3 (0.7-4.5); Lymphocytes % 9.9 % (10-50); Mean Corpuscular HGB Conc 30.9 g/dL (31.8-35.4); Mean Corpuscular Hemoglobin 31.1 pg (27.0-31.2); Mean Corpuscular Volume 100.7 fl (80-94); Mean Platelet Volume 8.5 fl (7.4-10.4); Monocytes # 0.4 K/mm3 (0.1-1.0); Monocytes % 5.7 % (1.7-9.3); Neutrophils # 5.6 K/mm3 (1.8-7.8); Neutrophils % 80.2 % (37.0-80.0); Platelet Count 197 K/mm3 (142-424); Red Blood Count 1.89 M/mm3 (4.60-6.20); Red Cell Distribution Width 20.6 % (11.5-17.5)
[2018-09-15 02:01] LABS: Hemoglobin 5.9 g/dL (14.1-18.0)
--- NOTE | 2018-09-15 08:53 | History & Physical Report ---
*Admission Date: 09/15/18 *Chief complaint: SOA, Anemia *History of present illness: Mr. Acuña is a 78-year-old white male with known coronary artery disease and previous coronary stenting (10/2016 and 08/2016), lymphoma and chronic kidney disease who presented as a transfer from [facility]. He initially presented to hospital in [facility] because of shortness of breath and fatigue. Patient noted to have significant anemia (baseline hemoglobin 9-10, ~5 on presentation), slightly elevated troponin, elevated BNP, and questionable pneumonia. As the patient's primary artificial limb fitter and primary care physician are both here locally, the patient was transferred to [facility] for cardiology consult and correction of his underlying issues. He denies any chest pain, referred pains in the neck or arm. Denies any melenic stools, bright red blood per rectum, hematemesis. Of note he is on aspirin and Plavix after his stents in 2016. Patient is otherwise alert and oriented to person place and time. Denies fevers, productive cough, nausea vomiting. [facility] History I have reviewed the patient's past medical history: Yes Medical History: Reports:: Cancer (COLON, SKIN), Coronary Artery Disease, Diabetes Mellitus Type 2, Gastroesophageal Reflux Disease(GERD), Heart Murmur, Hyperlipidemia, Hypertension, Myocardial Infarction, Osteoporosis, Renal Disease Denies:: Diabetes Mellitus Type 1, Internal Pacemaker, MRSA, Seizures *Have you ever received a pneumonia vaccine?: Yes *Have you received a flu vaccine this season?: Yes Other Medical History: Reports: Anemia, Chemotherapy, Osteoporosis, Other. Denies: Blood Transfusion Reaction Laterality Cases: Left: ACL Repair, Bilateral: Other Other Surgeries: Yes: Cancer Surgery, Cardiac Catheterization, Cardiac Surgery, Colonoscopy, Coronary Stent, Other. No: Pacemaker Amputation: No Fractures: No - *Social History Educational Level: Completed Grade School Smoking Status: Never smoker Alcohol Intake: never Alcohol Intake Frequency:: other Substance Use Type: denies use *Occupational Status:: retired, disabled Housing: house Household Members: significant other *Travel in the last 8 weeks: None - Psychiatric History Expresses thoughts of harming self/others: None Suicide Plan Description: No Plan Family Hx:: Cancer, Heart Attack, Hyperlipidemia, Hypertension Review of Systems - Review of Systems Review of systems:: pertinent systems reviewed and negative unless documented below Meds Home Medications Medication Instructions Recorded Confirmed Type Aspirin [Aspir 81] 81 mg PO DAILY 08/04/17 09/15/18 History Atorvastatin Calcium [Atorvastatin 80 mg PO HS 08/04/17 09/15/18 History 80mg Tab] Gabapentin [Gabapentin 300mg Cap] 300 mg PO TID 08/04/17 09/15/18 History sitagliptin 25 mg tablet 25 mg PO DAILY 08/22/17 09/15/18 History Furosemide [Furosemide 20mg Tab] 20 mg PO DAILY 09/09/17 09/15/18 History Spironolactone 50 mg PO BID 03/13/18 09/15/18 History Clopidogrel Bisulfate [Plavix 75mg 75 mg PO DAILY 05/23/18 09/15/18 History Tab] Isosorbide Mononitrate [Imdur 30mg 30 mg PO DAILY 05/23/18 09/15/18 History ER tablet] Allergies Allergy/AdvReac Type Severity Reaction Status Date / Time No Known Allergies Allergy Verified 06/14/18 12:49 Exam Vital signs and Labs for Last 24 Hours: Temp Pulse Resp BP Pulse Ox 98.0 F 90 18 96/54 L 95 09/15/18 07:45 09/15/18 07:45 09/15/18 07:45 09/15/18 07:45 09/15/18 08:07 Laboratory Results - last 24 hr 09/15/18 01:45: Blood Type O Positive, Antibody Screen Negative, Crossmatch (AHG) See Detail 09/15/18 01:45: WBC 7.0, RBC 1.89 L*, Hgb 5.9 L*, Hct 19.0 L*, MCV 100.7 H, MCH 31.1, MCHC 30.9 L, RDW 20.6 H, Plt Count 197, MPV 8.5, Neut % (Auto) 80.2 H, Lymph % (Auto) 9.9 L, [place] % (Auto) 5.7, Eos % (Auto) 3.8, Baso % (Auto) 0.5, Neut # (Auto) 5.6, Lymph # (Auto) 0.7, [place] # (Auto) 0.4, Eos # (Auto) 0.3, Baso # (Auto) 0.0 I & O for Last 24 hours: Intake & Output 02/13/09/13/18 09/14/18 09/15/18 23:59 23:59 23:59 23:59 Intake Total 580 / 580 Output Total 600 / 600 Balance -20 / -20 Weight 75.296 kg - Constitutional no acute distress Comments: pale, fatigued - *Routine HEENT Exam Head: Present: normocephalic, atraumatic Eye: Present: EOMI, PERRL ENT: Present: mucous membranes moist - *Routine Neck Exam Present: supple, full ROM. Absent: JVD - *Routine Respiratory Exam Present: crackles. Absent: rales Comments: bibasilar crackles to mid lung in posterior lung henderson - *Routine Cardiovascular Exam Present: RRR, Normal S1, murmur (systolic Jamal/Decres Murmur best heard at RUSB) - *Routine Abdominal Exam Present: soft, normoactive bowel sounds. Absent: tenderness - *Routine Rectal Exam Patient deferred: visual exam - *Routine Exam Patient deferred: penile exam - *Routine Extremities Exam Present: edema (1+). Absent: cyanosis, clubbing - *Routine Skin Exam Present: intact, pallor. Absent: cyanosis, erythema - *Routine Neurological Exam Present: alert, oriented X3. Absent: altered mental status Assessment and Plan (1) Pulmonary edema Current visit: Yes Status: Acute Category: Medical Code(s): J81.1 - Chronic pulmonary edema exam positive for crackles, bilateral basilar opacification on CXR, consistent with volume overload after blood transfusion. Elevated BNP. LAsix 40mg IV x 1, assess response. Consider repeat in AM pending result and exam. No O2 need at this time, low threshold for Supp O2. Maintain sats >92 (2) Anemia Current visit: No Status: Chronic Qualifiers: Anemia type: unspecified type Qualified Code(s): D64.9 - Anemia, unspecified Category: Medical Code(s): D64.9 - Anemia, unspecified Acute on Chronic. MAcrocytic and symptomatic. S/p 2Units RBCs. Repeat H/H 8.4. Adequate response to transfusion. Hold on additional units at this time. concern fro worse volume overload and risk of cardiac strain with further transfusions in setting of chronic compensated anemia. No active bleeding. (3) CAD (coronary artery disease) Current visit: No Status: Chronic Qualifiers: Coronary Disease-Associated Artery/Lesion type: [place] artery Associated angina: without angina Category: Medical Code(s): I25.10 - Atherosclerotic heart disease of [place] coronary artery without angina pectoris stable, asymptomatic (4) CHF (congestive heart failure) Current visit: No Status: Chronic Qualifiers: Heart failure type: diastolic Category: Medical Code(s): I50.9 - Heart failure, unspecified elevated BNP, Edema on CXR, bilateral crackles, bilateral LE Edema, lasix ordered. monitor I/O. (5) Diabetes mellitus Current visit: No Status: Chronic Qualifiers: Diabetes mellitus type: type 2 Diabetes mellitus oysterman insulin use: without custodial use Diabetes mellitus complication status: without complication Qualified Code(s): E11.9 - Type 2 diabetes mellitus without complications Category: Medical Code(s): E11.9 - Type 2 diabetes mellitus without complications SSI, monitor for hyperglycemia, diabetic diet (6) Lymphoma Current visit: No Status: Chronic Qualifiers: Non-Hodgkin lymphoma type: follicular Category: Medical Code(s): C85.90 - Non-Hodgkin lymphoma, unspecified, unspecified site complicates all aspects of care. not actively impacting therapy. (7) Renal insufficiency Current visit: No Status: Chronic Category: Medical Code(s): N28.9 - Disorder of kidney and ureter, unspecified chronic, monitor daily. avoid nephrotoxins. (8) Non-ST elevation myocardial infarction (NSTEMI) Current visit: Yes Status: Acute Category: Medical Code(s): I21.4 - Non-ST elevation (NSTEMI) myocardial infarction Suspect Type 2, supply demand mismatch. No acute intervention at this time. Hold on cards consult as patien tis asymptomatic with no ACS Sx. Serial trop pending. Suspect improvement with transfusions.
[2018-09-15 10:15] LABS: Hematocrit 26.1 % (42.0-52.0)
[2018-09-15 10:19] LABS: Hemoglobin 8.4 g/dL (14.1-18.0)
[2018-09-15 10:27] LABS: Anion Gap 16.6 mEq/L (5-15); Calcium 8.2 mg/dL (8.5-10.1); Potassium 4.6 mmoL/L (3.5-5.1)
--- NOTE | 2018-09-15 12:49 | Pharmacy Consult Notes ---
[facility] Pharmacy VTE Monitoring - Patient Demographics Admission date: 09/15/18 Report Date: 09/15/18 Time: 12:49 Allergies/Adverse Reactions: Patient Allergies No Known Allergies Allergy (Verified 06/14/18 12:49) Height: 1.73 m Weight: 75.296 kg Patient Problems: Current Active Problems Pulmonary edema (Acute) Non-ST elevation myocardial infarction (NSTEMI) (Acute) - VTE Risk Labs: VTE Related Lab Results Hgb 8.4 g/dL (14.1-18.0) L D 09/15/18 10:00 Hct 26.1 % (42.0-52.0) L 09/15/18 10:00 Plt Count 197 K/mm3 (142-424) 09/15/18 01:45 BUN 31 mg/dL (7-18) H 09/15/18 10:00 Creatinine 1.99 mg/dL (0.70-1.30) H 09/15/18 10:00 Estimated Creat Clear 33 mL/min (50-200) 09/15/18 10:00 Was VTE Risk Assessment Performed: Yes VTE Score: 5 VTE Risk Level: Low Risk - Prophylaxis VTE Prophylaxis Ordered?: Yes Types of VTE Prophylaxis: TEDS Knee High Location of Applied Device: Bilateral Lower Extremeties
[2018-09-16 08:49] LABS: Basophils % 0.6 % (0.1-2.0); Eosinophils # 0.2 K/mm3 (0.0-0.4); Eosinophils % 2.6 % (0.1-12.0); Lymphocytes # 0.8 K/mm3 (0.7-4.5); Lymphocytes % 10.6 % (10-50); Mean Corpuscular HGB Conc 32.1 g/dL (31.8-35.4); Mean Corpuscular Hemoglobin 30.9 pg (27.0-31.2); Mean Corpuscular Volume 96.1 fl (80-94); Mean Platelet Volume 8.7 fl (7.4-10.4); Monocytes # 0.4 K/mm3 (0.1-1.0); Neutrophils # 5.6 K/mm3 (1.8-7.8); Neutrophils % 80.2 % (37.0-80.0); Platelet Count 159 K/mm3 (142-424); Red Cell Distribution Width 20.2 % (11.5-17.5)
[2018-09-16 08:55] LABS: Anion Gap 14.2 mEq/L (5-15); Calcium 7.9 mg/dL (8.5-10.1); Potassium 4.2 mmoL/L (3.5-5.1)
--- NOTE | 2018-09-16 09:01 | Discharge Summary ---
General - General Admission date:: 09/15/18 Discharge date: 09/16/18 HPI HPI: Mr. Acuña is a 78-year-old white male with known coronary artery disease and previous coronary stenting (10/2016 and 08/2016), lymphoma and chronic kidney disease who presented as a transfer from [facility]. He initially presented to hospital in [facility] because of shortness of breath and fatigue. Patient noted to have significant anemia (baseline hemoglobin 9-10, ~5 on presentation), slightly elevated troponin, elevated BNP, and questionable pneumonia. As the patient's primary gas dispenser and primary care physician are both here locally, the patient was transferred to [facility] for cardiology consult and correction of his underlying issues. He denies any chest pain, referred pains in the neck or arm. Denies any melenic stools, bright red blood per rectum, hematemesis. Of note he is on aspirin and Plavix after his stents in 2016. Patient is otherwise alert and oriented to person place and time. Denies fevers, productive cough, nausea vomiting. Hospital Course Hospital Course: Patient was admitted to hospital and given 2 units of packed cells which improved his symptoms dramatically, and he had no further chest pain. Did have some shortness of air and orthopnea, noted to have CHF patterns on chest x-ray and elevated BNP levels. IV Lasix given and patient agrees to dramatically and felt much better. This morning hemoglobin is stable, and kidney function is actually improved. He will be discharged home. I will see him in my office on Monday with rate labs and evaluation of cardiac status to assess whether or not he needs a cardiology appointment. Current diagnosis is non-STEMI second severe anemia. Objective Vital signs: Temp Pulse Resp BP Pulse Ox 97.9 F 83 18 82/41 L 94 L 09/16/18 03:33 09/16/18 04:00 09/16/18 03:33 09/16/18 03:33 09/16/18 03:33 Narrative: Patient is pleasant. Alert. Oriented x3. No acute distress. Lungs have good air movement with minimal rhonchi in both bases. Heart rate regular with 2/6 murmur, otherwise unchanged. Abdomen soft and nontender. Minimal SI joint tenderness bilaterally but otherwise no orthopedic swelling or range of motion problems. Neurologically intact. No skin rash. Results Labs on day of discharge: Labs from last 24 hours 09/16/18 09/16/18 09/15/18 08:38 08:38 13:12 WBC 7.0 RBC 2.60 L D Hgb 8.0 L Hct 25.0 L MCV 96.1 H MCH 30.9 MCHC 32.1 RDW 20.2 H Plt Count 159 MPV 8.7 Neut % (Auto) 80.2 H Lymph % (Auto) 10.6 [place] % (Auto) 6.0 Eos % (Auto) 2.6 Baso % (Auto) 0.6 Neut # (Auto) 5.6 Lymph # (Auto) 0.8 [place] # (Auto) 0.4 Eos # (Auto) 0.2 Baso # (Auto) 0.0 Sodium 131 L Potassium 4.2 Chloride 100 Carbon Dioxide 21 Anion Gap 14.2 BUN 29 H Creatinine 1.80 H Estimated Creat Clear 37 Estimated GFR 37 L Est GFR ( Amer) 44 L Glucose 205 H Calcium 7.9 L Troponin I 0.08 H B-Natriuretic Peptide Crossmatch ([facility]) 09/15/18 09/15/18 09/15/18 10:00 10:00 10:00 WBC RBC Hgb 8.4 L D Hct 26.1 L MCV MCH MCHC RDW Plt Count MPV Neut % (Auto) Lymph % (Auto) [place] % (Auto) Eos % (Auto) Baso % (Auto) Neut # (Auto) Lymph # (Auto) [place] # (Auto) Eos # (Auto) Baso # (Auto) Sodium 133 L Potassium 4.6 Chloride 101 Carbon Dioxide 20 L Anion Gap 16.6 H BUN 31 H Creatinine 1.99 H Estimated Creat Clear 33 Estimated GFR 33 L Est GFR ( Amer) 40 L Glucose 201 H Calcium 8.2 L Troponin I 0.08 H B-Natriuretic Peptide 981 H Crossmatch ([facility]) 09/15/18 01:45 WBC RBC Hgb Hct MCV MCH MCHC RDW Plt Count MPV Neut % (Auto) Lymph % (Auto) [place] % (Auto) Eos % (Auto) Baso % (Auto) Neut # (Auto) Lymph # (Auto) [place] # (Auto) Eos # (Auto) Baso # (Auto) Sodium Potassium Chloride Carbon Dioxide Anion Gap BUN Creatinine Estimated Creat Clear Estimated GFR Est GFR ( Amer) Glucose Calcium Troponin I B-Natriuretic Peptide Crossmatch ([facility]) See Detail DS: Diagnosis - Discharge Diagnosis (1) Pulmonary edema Status: Resolved (2) Anemia Status: Chronic Problem details: Secondary to ongoing lymphoma (3) CAD (coronary artery disease) Status: Chronic (4) CHF (congestive heart failure) Status: Chronic (5) Diabetes mellitus Status: Chronic (6) Lymphoma Status: Chronic (7) Renal insufficiency Status: Chronic (8) Non-ST elevation myocardial infarction (NSTEMI) Status: Acute Discharge Plan - Patient Discharge Instructions ACTIVITY: Limited activity DIET: continue same diet Patient Instructions: Coronary Artery Disease, DI for Anemia of Chronic Disease - Follow up Plan Follow up with: Jose Ramon Mejias MD [Primary Care Provider] - 09/18/18 3:00 pm Disposition: Home, Self-Fpc Medications: Home Medications Medication Instructions Recorded Confirmed Type Aspirin [Aspir 81] 81 mg PO DAILY 08/04/17 09/15/18 History Atorvastatin Calcium [Atorvastatin 80 mg PO HS 08/04/17 09/15/18 History 80mg Tab] Gabapentin [Gabapentin 300mg Cap] 300 mg PO TID 08/04/17 09/15/18 History sitagliptin 25 mg tablet 25 mg PO DAILY 08/22/17 09/15/18 History Furosemide [Furosemide 20mg Tab] 20 mg PO DAILY 09/09/17 09/15/18 History Spironolactone 50 mg PO BID 03/13/18 09/15/18 History Clopidogrel Bisulfate [Plavix 75mg 75 mg PO DAILY 05/23/18 09/15/18 History Tab] Isosorbide Mononitrate [Imdur 30mg 30 mg PO DAILY 05/23/18 09/15/18 History ER tablet] Melatonin 5 mg PO HS PRN 09/15/18 09/15/18 History Omeprazole [Omeprazole 20mg Tab] 20 mg PO DAILY PRN 09/15/18 09/15/18 History Ondansetron HCl [Ondansetron 4mg 4 mg PO Q8HP PRN 09/15/18 09/15/18 History Tablet] Tamsulosin HCl [Flomax 0.4mg 0.4 mg PO HS 09/15/18 09/15/18 History capsule] Prescriptions/Medication Reconciliation: Continue sitagliptin 25 mg tablet 25 mg PO DAILY Gabapentin [Gabapentin 300mg Cap] 300 mg PO TID Atorvastatin Calcium [Atorvastatin 80mg Tab] 80 mg PO HS Aspirin [Aspir 81] 81 mg PO DAILY Spironolactone 50 mg PO BID Isosorbide Mononitrate [Imdur 30mg ER tablet] 30 mg PO DAILY Clopidogrel Bisulfate [Plavix 75mg Tab] 75 mg PO DAILY Omeprazole [Omeprazole 20mg Tab] 20 mg PO DAILY PRN PRN Reason: Heartburn Tamsulosin HCl [Flomax 0.4mg capsule] 0.4 mg PO HS Ondansetron HCl [Ondansetron 4mg Tablet] 4 mg PO Q8HP PRN PRN Reason: Nausea Melatonin 5 mg PO HS PRN PRN Reason: Sleep Furosemide [Furosemide 20mg Tab] 20 mg PO DAILY
== END | disposition home or self-care (01) ==
LOC: 2ND
PROVIDERS: ADMIT Emergency Medicine; ATTEND Internal Medicine Adolescent Medicine
DX: Z85.820 Personal history of malignant melanoma of skin; E11.22 Type 2 diabetes mellitus with diabetic chronic kidney disease; R53.83 Other fatigue; C85.90 Non-Hodgkin lymphoma, unspecified, unspecified site; Z79.899 Other long term (current) drug therapy; Z95.5 Presence of coronary angioplasty implant and graft; I25.2 Old myocardial infarction; N18.9 Chronic kidney disease, unspecified; D64.9 Anemia, unspecified; I21.4 Non-ST elevation (NSTEMI) myocardial infarction; I25.10 Atherosclerotic heart disease of native coronary artery without angina pectoris; Z85.038 Personal history of other malignant neoplasm of large intestine; M81.0 Age-related osteoporosis without current pathological fracture; J81.1 Chronic pulmonary edema; Z79.82 Long term (current) use of aspirin; E78.5 Hyperlipidemia, unspecified; R06.02 Shortness of breath; I13.0 Hypertensive heart and chronic kidney disease with heart failure and stage 1 through stage 4 chronic kidney disease, or unspecified chronic kidney disease
CPT/HCPCS: 36415; 71010; 71045; 80048; 83880; 84484; 85014; 85018; 85025; 86850; 93005; G0378; P9016

== ENCOUNTER → 2018-09-20 09:07 | Outpatient (CLI) | payer MEDICARE, SELFPAY ==
--- NOTE | 2018-09-20 09:28 | XR_ITS ---
EXAM: XR lumbar spine min 4V HISTORY: ITS.REASON: ACUTE MIDLINE BACK PAIN ORDERING PHYSICIAN: Jose Ramon Mejias MD PATIENT AGE: 78 years COMPARISON: None FINDINGS: Normal alignment. No fracture or dislocation evident. There is mild degenerative disc disease at L1-L2 L2-L3 and L3-L4. Small anterior vertebral body osteophytes are present at these levels as well. No lytic or blastic change. There is mild facet arthritic change at L5-S1. Incidental note made of gallstones. IMPRESSION: 1. Lumbar spondylosis as described above 2. Cholelithiasis
[2018-09-20 09:45] LABS: Basophils # 0.1 K/mm3 (0-0.2); Basophils % 0.6 % (0.1-2.0); Eosinophils # 0.2 K/mm3 (0.0-0.4); Eosinophils % 2.3 % (0.1-12.0); Hematocrit 27.3 % (42.0-52.0); Hemoglobin 8.8 g/dL (14.1-18.0); Lymphocytes # 0.9 K/mm3 (0.7-4.5); Mean Corpuscular HGB Conc 32.4 g/dL (31.8-35.4); Mean Corpuscular Hemoglobin 31.5 pg (27.0-31.2); Mean Corpuscular Volume 97.4 fl (80-94); Mean Platelet Volume 8.6 fl (7.4-10.4); Monocytes # 0.5 K/mm3 (0.1-1.0); Monocytes % 5.6 % (1.7-9.3); Neutrophils # 6.9 K/mm3 (1.8-7.8); Neutrophils % 80.5 % (37.0-80.0); Platelet Count 179 K/mm3 (142-424); Red Cell Distribution Width 20.2 % (11.5-17.5); White Blood Count 8.5 K/mm3 (4.8-10.8)
[2018-09-20 10:40] LABS: Alanine Aminotransferase 22 U/L (12-78); Albumin Level 2.4 gm/dL (3.4-5.0); Albumin/Globulin Ratio 0.9 (1.1-1.8); Alkaline Phosphatase 186 U/L (46-116); Aspartate Amino Transferase 27 U/L (15-37); Bilirubin,Total 1.2 mg/dL (0.2-1.0); Blood Urea Nitrogen 25 mg/dL (7-18); Carbon Dioxide 21 mmol/L (21.0-32.0); Chloride 99 mmol/L (98-107); Creatinine,Serum 1.77 mg/dL (0.70-1.30); Estimated Glomerular Filt Rate 37 ml/min (>60); GFR (African American) 45 ML/MIN (>60); Globulin 2.8 gm/dl (1.3-3.2); Glucose 137 mg/dL (74-106); Sodium 131 mmol/L (136-145); Total Protein,Serum 5.2 gm/dL (6.4-8.2)
== END ==
PROVIDERS: Visit Provider Internal Medicine Adolescent Medicine
DX: C85.93 Non-Hodgkin lymphoma, unspecified, intra-abdominal lymph nodes (principal); D63.8 Anemia in other chronic diseases classified elsewhere; M54.5 Low back pain
CPT/HCPCS: 36415; 72110; 80053; 85025

== ENCOUNTER 2018-10-02 06:08 | Inpatient (IN) ==
[2018-10-02 06:37] LABS: Basophils % 0.3 % (0.1-2.0); Eosinophils % 0.6 % (0.1-12.0); Lymphocytes # 1.3 K/mm3 (0.7-4.5); Lymphocytes % 20.5 % (10-50); Mean Corpuscular HGB Conc 32.6 g/dL (31.8-35.4); Mean Corpuscular Hemoglobin 32.9 pg (27.0-31.2); Mean Platelet Volume 8.8 fl (7.4-10.4); Monocytes # 0.3 K/mm3 (0.1-1.0); Monocytes % 5.2 % (1.7-9.3); Neutrophils # 4.8 K/mm3 (1.8-7.8); Neutrophils % 73.4 % (37.0-80.0); Platelet Count 206 K/mm3 (142-424); Red Blood Count 1.75 M/mm3 (4.60-6.20); Red Cell Distribution Width 22.5 % (11.5-17.5); White Blood Count 6.5 K/mm3 (4.8-10.8)
[2018-10-02 06:57] LABS: Alanine Aminotransferase 19 U/L (12-78); Albumin Level 2.1 gm/dL (3.4-5.0); Albumin/Globulin Ratio 0.7 (1.1-1.8); Alkaline Phosphatase 127 U/L (46-116); Anion Gap 15.4 mEq/L (5-15); Aspartate Amino Transferase 25 U/L (15-37); Bilirubin,Total 0.8 mg/dL (0.2-1.0); Blood Urea Nitrogen 41 mg/dL (7-18); Calcium 7.9 mg/dL (8.5-10.1); Carbon Dioxide 21 mmol/L (21.0-32.0); Chloride 101 mmol/L (98-107); Globulin 2.9 gm/dl (1.3-3.2); Glucose 158 mg/dL (74-106); Hematocrit 17.7 % (42.0-52.0); Potassium 5.4 mmoL/L (3.5-5.1); Sodium 132 mmol/L (136-145)
[2018-10-02 07:12] LABS: Hemoglobin 5.7 g/dL (14.1-18.0)
--- NOTE | 2018-10-02 07:27 | Emergency Department Note ---
ED Disposition Clinical Impression: Renal insufficiency, Hyperkalemia Anemia Qualifiers: Anemia type: unspecified type Qualified Code(s): D64.9 - Anemia, unspecified Aortic valve stenosis Qualifiers: Cardiac valve disease etiology: etiology unspecified Qualified Code(s): I35.0 - Nonrheumatic aortic (valve) stenosis Disposition: Admitted As Inpatient Condition on Discharge: Good Referrals: Jose Ramon Mejias MD [Primary Care Provider] - - Critical Care Critical Care Time: No Attestation: On 10/02/18, the high probability of a clinically significant, sudden or life threatening deterioration of the following system(s) required my full and direct attention, intervention and personal management. The time I documented below is in addition to time spent performing reported procedures but includes the following listed in this critical care notation. Medical Decision Making - Medical Records Medical records reviewed: Yes: I reviewed the patient's medical records. - [place] Inquiry Pt receiving controlled substance: No Vital Signs: 10/02/18 06:08 10/02/18 06:38 Temperature 97.6 F Temperature Source Oral Pulse Rate [Right Brachial] 90 64 Respiratory Rate 16 Blood Pressure [Right Arm] 105/56 L 96/54 L Blood Pressure Mean [Right Arm] 72 68 02 Sat by Pulse Oximetry 97 98 Oxygen Delivery Method Room Air - Lab Data Lab results reviewed: Yes: I reviewed the patient's lab results. Lab Results 10/02/18 06:25: WBC 6.5, RBC 1.75 L*, Hgb 5.7 L*, Hct 17.7 L*, MCV 101.0 H, MCH 32.9 H, MCHC 32.6, RDW 22.5 H, Plt Count 206, MPV 8.8, Neut % (Auto) 73.4, Lymph % (Auto) 20.5, [place] % (Auto) 5.2, Eos % (Auto) 0.6, Baso % (Auto) 0.3, Neut # (Auto) 4.8, Lymph # (Auto) 1.3, [place] # (Auto) 0.3, Eos # (Auto) 0.0, Baso # (Auto) 0.0 10/02/18 06:25: Sodium 132 L, Potassium 5.4 H, Chloride 101, Carbon Dioxide 21, Anion Gap 15.4 H, BUN 41 H, Creatinine 2.30 H, Estimated Creat Clear 28, Estimated GFR 28 L, Est GFR ( Amer) 34 L, Glucose 158 H, Calcium 7.9 L, Total Bilirubin 0.8, AST 25, ALT 19, Alkaline Phosphatase 127 H, Troponin I < 0.02, Total Protein 5.0 L, Albumin 2.1 L, Globulin 2.9, Albumin/Globulin Ratio 0.7 L Result diagrams: 10/02/18 06:25 10/02/18 06:25 Orders (Tests/Meds): ED MEDICATIONS Generic Name Dose Route Start Last Admin Trade Name Freq PRN Reason Stop Dose Admin Sodium Chloride 1,000 mls @ 999 mls/hr 10/02/18 06:30 10/02/18 06:34 Sod Chlor 0.9% 1000ml Bag IV 10/02/18 07:30 999 mls/hr .Q1H1M MUNDO Administration Sodium Chloride 250 mls @ 25 mls/hr 10/02/18 07:15 Sod Chlor 0.9% 250ml Bag IV 10/03/18 07:14 .Q10H MUNDO Sodium Chloride 10 ml 10/02/18 06:26 Saline Flush 10ml Syringe IV 11/01/18 06:25 NEEDED PRN Maintain IV Site ORDERS Category Date Time Status Blood transfusion [Red Blood Cells] Stat BBK 10/02/18 07:02 Ordered Type and Screen Stat BBK 10/02/18 07:02 Ordered Occult Blood,Stool Stat Lab 10/02/18 06:26 Ordered Urinalysis and Microscopic Stat Lab 10/02/18 06:26 Ordered - Radiology Data #1 Image(s): Chest Image Reviewed: Yes I reviewed the patient's radiology image Preliminary Findings: Abnormal (resolving inflitrates ) - ECG Data Tracing #1 Arrhythmias present: wandering atrial pacemaker Ischemic changes: non-specific ST-T wave changes ECG compared to prior tracings: there are no significant changes - Physician Consults Physician Consulted: chapo Reason -: Admission Weakness HPI - General Chief complaint: Weakness Stated complaint: Weakness, cannot walk Time Seen by Provider: 10/02/18 06:40 Mode of Arrival: Wheelchair Source of Information: Patient, Spouse, Medical Record Limitations: Physical Limitations Description of Symptoms (Recalled from ER Triage Doc. by RN): Pt reports progressive weakness over the last couple weeks but it has gotten worse since Monday. Reports he was hospitalized recently with anema with a Hgb of 5, and he feels like he is anemic again. Pt reports he can barely stand up. Pt is notably very weak. Pt does reports some mild "bloody stools" that started yesterday. Denies any pain, denies fever, denies any other symptoms. - History of Present Illness HPI Narrative: pt reports progressive weakness and feels weak with hx of recent admit for anemia - pt denied any chest pain or syncope - MD Complaint: generalized weakness Onset (ago): day(s) Duration: constant Location: generalized Severity: moderate Associated symptoms: denies other symptoms - Related Data Home Medications Medication Instructions Recorded Confirmed Aspirin [Aspir 81] 81 mg PO DAILY 08/04/17 10/02/18 Atorvastatin Calcium [Atorvastatin 80 mg PO HS 08/04/17 10/02/18 80mg Tab] Gabapentin [Gabapentin 300mg Cap] 300 mg PO TID 08/04/17 10/02/18 sitagliptin 25 mg tablet 25 mg PO DAILY 08/22/17 10/02/18 Furosemide [Furosemide 20mg Tab] 20 mg PO DAILY 09/09/17 10/02/18 Spironolactone 50 mg PO BID 03/13/18 10/02/18 Clopidogrel Bisulfate [Plavix 75mg 75 mg PO DAILY 05/23/18 10/02/18 Tab] Isosorbide Mononitrate [Imdur 30mg 30 mg PO DAILY 05/23/18 10/02/18 ER tablet] Melatonin 5 mg PO HS PRN 09/15/18 10/02/18 Omeprazole [Omeprazole 20mg Tab] 20 mg PO DAILY PRN 09/15/18 10/02/18 Ondansetron HCl [Ondansetron 4mg 4 mg PO Q8HP PRN 09/15/18 10/02/18 Tablet] Tamsulosin HCl [Flomax 0.4mg 0.4 mg PO HS 09/15/18 10/02/18 capsule] Allergies Allergy/AdvReac Type Severity Reaction Status Date / Time No Known Allergies Allergy Verified 06/14/18 12:49 [facility] History - Hepatitis A Screen Drug use history?: No High risk sexual behaviors?: No History of sexually transmitted infection?: No Currently employed?: No Childcare worker?: No Do you have indoor plumbing?: Yes Do you have electricity?: Yes Attestation statement:: This patient has been screened for Hepatitis A risk factors. I have reviewed the patient's past medical history: Yes Medical History: Reports:: Cancer (COLON, SKIN), Coronary Artery Disease, Gastroesophageal Reflux Disease(GERD), Heart Murmur, Hyperlipidemia, Hypertension, Myocardial Infarction, Osteoporosis, Renal Disease Denies:: Diabetes Mellitus Type 1, Diabetes Mellitus Type 2, Internal Pacemak er, MRSA, Seizures Other Medical History: Reports: Anemia, Chemotherapy, Osteoporosis, Other. Denies: Blood Transfusion Reaction Comment: cardiac stints, lymphoma Laterality Cases: Left: ACL Repair, Bilateral: Other Other Surgeries: Yes: Cancer Surgery, Cardiac Catheterization, Cardiac Surgery, Colonoscopy, Coronary Stent, Other. No: Pacemaker Amputation: No Fractures: No Comment: stomach tumor, cardiac stints - Social History Smoking Status: Never smoker Alcohol Intake: never Alcohol Intake Frequency:: other Substance Use Type: denies use Occupational Status: retired, disabled Housing: house Household Members: significant other - Psychiatric History Expresses thoughts of harming self/others: None Suicide Plan Description: No Plan Family Hx:: Cancer, Heart Attack, Hyperlipidemia, Hypertension ROS Obtained: Yes All systems reviewed & no additional complaints - Constitutional Constitutional: Denies fever(s), Reports weakness - Eyes Eyes: Denies change in vision - ENT Ears, Nose, Mouth, and Throat: Denies sore throat - Cardiovascular Cardiovascular: Denies chest pain, Denies rapid heart rate - Respiratory Respiratory: No cough - Gastrointestinal Gastrointestingal: Denies: vomiting - Genitourinary Male Genitourinary: Denies hematuria - Musculoskeletal Musculoskeletal: Denies joint pain - Integumentary/Breasts Skin/Breast: Denies rash - Neurologic Neurologic: Denies seizure-like activity Physical Exam - General General appearance: alert, in no apparent distress - Head Head exam: normocephalic - Eye Eye exam: Present: PERRL, EOMI. Absent: scleral icterus - ENT ENT exam: Present: mucous membranes dry - Neck Neck exam: Present: trachea midline - Respiratory Respiratory exam: Present: normal lung sounds bilaterally. Absent: respiratory distress - Cardiovascular Cardiovascular exam: Present: irregular rhythm, systolic murmur, +S4 - Abdominal Exam Abdominal exam: Present: soft - Extremities Exam Extremities exam: Absent: calf tenderness - Neurological Exam Neurological exam: Present: alert, oriented X3, CN II-XII intact - Psychiatric Psychiatric exam: Present: normal affect - Skin Skin exam: Absent: rash
[2018-10-02 08:45] LABS: Microscopic, Urine URINE MICROSCOPIC (MICROSCOPIC)
[2018-10-02 08:48] LABS: Appearance,Urine CLEAR (Clear); Bilirubin,Urine Negative (Negative); Blood, Urine Negative (Negative); Color,Urine YELLOW (Yellow); Glucose,Urine (UA) Negative (Negative); Ketones,Urine Negative (Negative); Leukocyte Esterase,Urine Negative (Negative); PH,Urine 6.5 (5.0-8.5); Protein,Urine Negative (Negative); Urobilinogen,Urine 0.2 EU/dl (0.2)
[2018-10-02 09:20] LABS: Bacteria,Urine Trace /lpf; WBC,Urine Occasional #/hpf (0-3)
--- NOTE | 2018-10-02 09:31 | History & Physical Report ---
*Admission Date: 10/02/18 *Chief complaint: fatigue *History of present illness: Mr. Acuña is a 78-year-old white male with known coronary artery disease and previous coronary stenting (10/2016 and 08/2016), lymphoma and chronic kidney disease who presented to the ER due to fatigue, weakness, SOA. Of note he was recently admitted the [facility] of last month for similar Sx and found to have symptomatic anemia. On presentation today he had similar labs with Hgb of ~5 (baseline hemoglobin 9-10), elevated Creatinine, and potassium. He denies any chest pain, referred pains in the neck or arm. Does report an episode of darker almost black stool yesterday. Denies any Bright red blood per rectum, hematemesis. Of note he is on aspirin and Plavix after his stents in 2016. Patient is otherwise alert and oriented to person place and time. Denies fevers, productive cough, nausea vomiting. [facility] History I have reviewed the patient's past medical history: Yes Medical History: Reports:: Cancer (COLON, SKIN), Coronary Artery Disease, Gastroesophageal Reflux Disease(GERD), Heart Murmur, Hyperlipidemia, Hypertension, Myocardial Infarction, Osteoporosis, Renal Disease Denies:: Diabetes Mellitus Type 1, Diabetes Mellitus Type 2, Internal Pacem william, MRSA, Seizures *Have you ever received a pneumonia vaccine?: No *Have you received a flu vaccine this season?: No Other Medical History: Reports: Anemia, Chemotherapy, Osteoporosis, Other. Denies: Blood Transfusion Reaction Laterality Cases: Left: ACL Repair, Bilateral: Other Other Surgeries: Yes: Cancer Surgery, Cardiac Catheterization, Cardiac Surgery, Colonoscopy, Coronary Stent, Other. No: Pacemaker Amputation: No Fractures: No - *Social History Smoking Status: Never smoker Alcohol Intake: never Alcohol Intake Frequency:: other Substance Use Type: denies use *Occupational Status:: retired, disabled Housing: house Household Members: significant other *Travel in the last 8 weeks: None - Psychiatric History Expresses thoughts of harming self/others: None Suicide Plan Description: No Plan Family Hx:: Cancer, Heart Attack, Hyperlipidemia, Hypertension Review of Systems - Review of Systems Review of systems:: pertinent systems reviewed and negative unless documented below - *Neurologic Reports weakness, Denies seizure-like activity Meds Home Medications Medication Instructions Recorded Confirmed Type Aspirin [Aspir 81] 81 mg PO DAILY 08/04/17 10/02/18 History Atorvastatin Calcium [Atorvastatin 80 mg PO HS 08/04/17 10/02/18 History 80mg Tab] Gabapentin [Gabapentin 300mg Cap] 300 mg PO TID 08/04/17 10/02/18 History sitagliptin 25 mg tablet 25 mg PO DAILY 08/22/17 10/02/18 History Furosemide [Furosemide 20mg Tab] 20 mg PO DAILY 09/09/17 10/02/18 History Spironolactone 50 mg PO BID 03/13/18 10/02/18 History Clopidogrel Bisulfate [Plavix 75mg 75 mg PO DAILY 05/23/18 10/02/18 History Tab] Isosorbide Mononitrate [Imdur 30mg 30 mg PO DAILY 05/23/18 10/02/18 History ER tablet] Melatonin 5 mg PO HS PRN 09/15/18 10/02/18 History Omeprazole [Omeprazole 20mg Tab] 20 mg PO DAILY PRN 09/15/18 10/02/18 History Ondansetron HCl [Ondansetron 4mg 4 mg PO Q8HP PRN 09/15/18 10/02/18 History Tablet] Tamsulosin HCl [Flomax 0.4mg 0.4 mg PO HS 09/15/18 10/02/18 History capsule] Allergies Allergy/AdvReac Type Severity Reaction Status Date / Time No Known Allergies Allergy Verified 06/14/18 12:49 Exam Vital signs and Labs for Last 24 Hours: Temp Pulse Resp BP Pulse Ox 97.6 F 66 17 116/64 96 10/02/18 08:33 10/02/18 08:33 10/02/18 08:33 10/02/18 08:33 10/02/18 08:33 Laboratory Results - last 24 hr 10/02/18 06:25: WBC 6.5, RBC 1.75 L*, Hgb 5.7 L*, Hct 17.7 L*, MCV 101.0 H, MCH 32.9 H, MCHC 32.6, RDW 22.5 H, Plt Count 206, MPV 8.8, Neut % (Auto) 73.4, Lymph % (Auto) 20.5, [place] % (Auto) 5.2, Eos % (Auto) 0.6, Baso % (Auto) 0.3, Neut # (Auto) 4.8, Lymph # (Auto) 1.3, [place] # (Auto) 0.3, Eos # (Auto) 0.0, Baso # (Aut o) 0.0 10/02/18 06:25: Sodium 132 L, Potassium 5.4 H, Chloride 101, Carbon Dioxide 21, Anion Gap 15.4 H, BUN 41 H, Creatinine 2.30 H, Estimated Creat Clear 28, Estimated GFR 28 L, Est GFR ( Amer) 34 L, Glucose 158 H, Calcium 7.9 L, Total Bilirubin 0.8, AST 25, ALT 19, Alkaline Phosphatase 127 H, Troponin I < 0.02, Total Protein 5.0 L, Albumin 2.1 L, Globulin 2.9, Albumin/Globulin Ratio 0.7 L 10/02/18 07:50: Blood Type O Positive, Antibody Screen Negative, Crossmatch ([facility]) See Detail 10/02/18 08:20: Urine Color Yellow, Urine Appearance Clear, Urine pH 6.5, Ur Specific [place] 1.010, Urine Protein Negative, Urine Glucose (UA) Negative, U rine Ketones Negative, Urine Blood Negative, Urine Nitrate Negative, Urine Bilirubin Negative, Urine Urobilinogen 0.2, Ur Leukocyte Esterase Negative, Urine WBC Occasional, Urine Bacteria Trace I & O for Last 24 hours: Intake & Output 09/29/18 09/30/18 10/01/18 10/02/18 23:59 23:59 23:59 23:59 Intake Total 1000 / 1000 Balance 1000 / 1000 Weight 72.121 kg Narrative: - Constitutional no acute distress Comments: pale, fatigued - *Routine HEENT Exam Head: Present: normocephalic, atraumatic Eye: Present: EOMI, PERRL ENT: Present: mucous membranes moist - *Routine Neck Exam Present: supple, full ROM. Absent: JVD - *Routine Respiratory Exam Absent: rales, crackles - *Routine Cardiovascular Exam Present: RRR, Normal S1, murmur (systolic Jamal/Decres Murmur best heard at RUSB 4/5) - *Routine Abdominal Exam Present: soft, normoactive bowel sounds. Absent: tenderness - *Routine Rectal Exam Patient deferred: visual exam - *Routine Exam Patient deferred: penile exam - *Routine Extremities Exam Present: edema (1+). Absent: cyanosis, clubbing - *Routine Skin Exam Present: intact, pallor. Absent: cyanosis, erythema - *Routine Neurological Exam Present: alert, oriented X3. Absent: altered mental status Assessment and Plan (1) Hyperkalemia Current visit: Yes Status: Acute Category: Medical Code(s): E87.5 - Hyperkalemia (2) Anemia Problem details: Secondary to ongoing lymphoma Current visit: Yes Status: Chronic Qualifiers: Anemia type: unspecified type Qualified Code(s): D64.9 - Anemia, unspecified Category: Medical Code(s): D64.9 - Anemia, unspecified (3) Aortic valve stenosis Current visit: Yes Status: Chronic Qualifiers: Cardiac valve disease etiology: etiology unspecified Qualified Code(s): I35.0 - Nonrheumatic aortic (valve) stenosis Category: Medical Code(s): I35.0 - Nonrheumatic aortic (valve) stenosis (4) Renal insufficiency Current visit: Yes Status: Chronic Category: Medical Code(s): N28.9 - Disorder of kidney and ureter, unspecified (5) CHF (congestive heart failure) Current visit: No Status: Chronic Qualifiers: Heart failure type: diastolic Heart failure chronicity: chronic Qualified Code(s): I50.32 - Chronic diastolic (congestive) heart failure Category: Medical Code(s): I50.9 - Heart failure, unspecified (6) Diabetes mellitus Current visit: No Status: Chronic Qualifiers: Category: Medical Code(s): E11.9 - Type 2 diabetes mellitus without complications (7) Lymphoma Current visit: No Status: Chronic Category: Medical Code(s): C85.90 - Non- Hodgkin lymphoma, unspecified, unspecified site - Assessment and plan all Dx Assessment and Plan for all problems:: Acute on Chronic Macrocytic anemia that is symptomatic. S/p 2Units RBCs. Repeat H/H pending. No active bleeding, stool hemoccult pending DM: - SSI, monitor for hyperglycemia, diabetic diet Lymphoma: - Non-Hodgkin lymphoma, unspecified, unspecified site - complicates all aspects of care. not actively impacting therapy. JOSE: HyperKalemia: - monitor daily. avoid nephrotoxins. - anticipate improvement with transfusions - If K elevates >6.5 will monito EKG and pursue medical management Condition serious, clinically guarded
--- NOTE | 2018-10-02 10:22 | Pharmacy Consult Notes ---
[facility] Pharmacy VTE Monitoring - Patient Demographics Admission date: 10/02/18 Report Date: 10/02/18 Time: 10:22 Allergies/Adverse Reactions: Patient Allergies No Known Allergies Allergy (Verified 06/14/18 12:49) Height: 1.73 m Weight: 72.121 kg Patient Problems: Current Active Problems Anemia (Chronic) Renal insufficiency (Chronic) Hyperkalemia (Acute) Aortic valve stenosis (Chronic) - VTE Risk Labs: VTE Related Lab Results Hgb 5.7 g/dL (14.1-18.0) L* 10/02/18 06:25 Hct 17.7 % (42.0-52.0) L* 10/02/18 06:25 Plt Count 206 K/mm3 (142-424) 10/02/18 06:25 BUN 41 mg/dL (7-18) H 10/02/18 06:25 Creatinine 2.30 mg/dL (0.70-1.30) H 10/02/18 06:25 Estimated Creat Clear 28 mL/min (50-200) 10/02/18 06:25 Clinical Trial Participant: No - Prophylaxis VTE Prophylaxis Ordered?: Yes Types of VTE Prophylaxis: TEDS Knee High Location of Applied Device: Bilateral Lower Extremeties
[2018-10-02 13:35] LABS: Hemoglobin 6.4 g/dL (14.1-18.0)
[2018-10-02 13:36] LABS: Hematocrit 19.1 % (42.0-52.0)
[2018-10-02 20:43] LABS: Hematocrit 23.6 % (42.0-52.0)
[2018-10-02 21:38] LABS: Hemoglobin 7.9 g/dL (14.1-18.0)
[2018-10-03 07:48] LABS: Basophils % 0.3 % (0.1-2.0); Eosinophils % 0.8 % (0.1-12.0); Lymphocytes # 0.9 K/mm3 (0.7-4.5); Lymphocytes % 19.9 % (10-50); Mean Corpuscular Hemoglobin 32.1 pg (27.0-31.2); Mean Corpuscular Volume 97.3 fl (80-94); Mean Platelet Volume 8.4 fl (7.4-10.4); Monocytes # 0.3 K/mm3 (0.1-1.0); Neutrophils # 3.2 K/mm3 (1.8-7.8); Neutrophils % 71.9 % (37.0-80.0); Platelet Count 143 K/mm3 (142-424); Red Blood Count 2.22 M/mm3 (4.60-6.20); Red Cell Distribution Width 20.5 % (11.5-17.5); White Blood Count 4.5 K/mm3 (4.8-10.8)
[2018-10-03 07:58] LABS: Hemoglobin 7.1 g/dL (14.1-18.0)
[2018-10-03 07:59] LABS: Hematocrit 21.6 % (42.0-52.0)
[2018-10-03 08:35] LABS: Anion Gap 15.9 mEq/L (5-15); Potassium 4.9 mmoL/L (3.5-5.1)
[2018-10-03 08:49] LABS: Calcium 7.1 mg/dL (8.5-10.1)
[2018-10-03 17:15] LABS: Hematocrit 28.4 % (42.0-52.0); Hemoglobin 9.7 g/dL (14.1-18.0)
--- NOTE | 2018-10-03 17:52 | Discharge Summary ---
General - General Admission date:: 10/02/18 Discharge date: 10/03/18 HPI HPI: Mr. Acuña is a 78-year-old white male with known coronary artery disease and previous coronary stenting (10/2016 and 08/2016), lymphoma and chronic kidney disease who presented to the ER due to fatigue, weakness, SOA. Of note he was recently admitted the [facility] of last month for similar Sx and found to have symptomatic anemia. On presentation today he had similar labs with Hgb of ~5 (baseline hemoglobin 9-10), elevated Creatinine, and potassium. He denies any chest pain, referred pains in the neck or arm. Does report an episode of darker almost black stool yesterday. Denies any Bright red blood per rectum, hematemesis. Of note he is on aspirin and Plavix after his stents in 2016. Patient is otherwise alert and oriented to person place and time. Denies fevers , productive cough, nausea vomiting. Hospital Course Hospital Course: Patient was admitted, given a total of 4 units of packed red blood cells and his hemoglobin responded appropriately going up to 9.7 g. [place] much better. No evidence of GI bleeding was noted. Stools were not black or tarry. No evidence of upper GI bleeding. No further chest pain or shortness of air. Patient will be discharged home, we have recommended that he stop his clopidogrel, he will follow-up with oncology next week and with me in the office next week. Objective Vital signs: Temp Pulse Resp BP Pulse Ox 98.0 F 74 20 85/46 L 96 10/03/18 14:22 10/03/18 14:22 10/03/18 14:22 10/03/18 14:22 10/03/18 14:22 Narrative: Patient is awake, alert, appears much brighter. Color is good. Heart rate regular. Previously noted murmur noted., No carotid radiation. Abdomen soft and nontender. Good movement of all extremities, no asymmetric neurologic deficits noted. Good skin perfusion. Lungs are clear bilaterally. Results Labs on day of discharge: Labs from last 24 hours 10/03/18 10/03/18 10/03/18 16:52 16:50 11:48 WBC RBC Hgb 9.7 L D Hct 28.4 L MCV MCH MCHC RDW Plt Count MPV Neut % (Auto) Lymph % (Auto) [place] % (Auto) Eos % (Auto) Baso % (Auto) Neut # (Auto) Lymph # (Auto) [place] # (Auto) Eos # (Auto) Baso # (Auto) Sodium Potassium Chloride Carbon Dioxide Anion Gap BUN Creatinine Estimated Creat Clear Estimated GFR Est GFR ( Amer) Glucose POC Glucose 165 H 175 H Calcium Lactate Dehydrogenase Blood Type Antibody Screen Crossmatch ([facility]) 10/03/18 10/03/18 10/03/18 06:49 06:49 06:49 WBC 4.5 L D RBC 2.22 L D Hgb 7.1 L* Hct 21.6 L* MCV 97.3 H MCH 32.1 H MCHC 33.0 RDW 20.5 H Plt Count 143 D MPV 8.4 Neut % (Auto) 71.9 Lymph % (Auto) 19.9 [place] % (Auto) 7.0 Eos % (Auto) 0.8 Baso % (Auto) 0.3 Neut # (Auto) 3.2 Lymph # (Auto) 0.9 [place] # (Auto) 0.3 Eos # (Auto) 0.0 Baso # (Auto) 0.0 Sodium 133 L Potassium 4.9 Chloride 102 Carbon Dioxide 20 L Anion Gap 15.9 H BUN 32 H Creatinine 1.76 H D Estimated Creat Clear 36 Estimated GFR 38 L Est GFR ( Amer) 46 L D Glucose 130 H POC Glucose Calcium 7.1 L D Lactate Dehydrogenase 219 Blood Type Antibody Screen Crossmatch ([facility]) 10/03/18 10/02/18 10/02/18 05:20 20:25 20:15 WBC RBC Hgb 7.9 L* D Hct 23.6 L* MCV MCH MCHC RDW Plt Count MPV Neut % (Auto) Lymph % (Auto) [place] % (Auto) Eos % (Auto) Baso % (Auto) Neut # (Auto) Lymph # (Auto) [place] # (Auto) Eos # (Auto) Baso # (Auto) Sodium Potassium Chloride Carbon Dioxide Anion Gap BUN Creatinine Estimated Creat Clear Estimated GFR Est GFR ( Amer) Glucose POC Glucose 142 H 136 H Calcium Lactate Dehydrogenase Blood Type Antibody Screen Crossmatch ([facility]) 10/02/18 07:50 WBC RBC Hgb Hct MCV MCH MCHC RDW Plt Count MPV Neut % (Auto) Lymph % (Auto) [place] % (Auto) Eos % (Auto) Baso % (Auto) Neut # (Auto) Lymph # (Auto) [place] # (Auto) Eos # (Auto) Baso # (Auto) Sodium Potassium Chloride Carbon Dioxide Anion Gap BUN Creatinine Estimated Creat Clear Estimated GFR Est GFR ( Amer) Glucose POC Glucose Calcium Lactate Dehydrogenase Blood Type O Positive Antibody Screen Negative Crossmatch ([facility]) See Detail DS: Diagnosis - Discharge Diagnosis (1) Hyperkalemia Status: Resolved (2) Anemia Status: Chronic Problem details: Secondary to ongoing lymphoma (3) Aortic valve stenosis Status: Chronic (4) Renal insufficiency Status: Chronic (5) CHF (congestive heart failure) Status: Chronic (6) Diabetes mellitus Status: Chronic (7) Lymphoma Status: Chronic Discharge Plan - Patient Discharge Instructions ACTIVITY: Continue current activity DIET: continue same diet Patient Instructions: Anemia, DI for Muscle Weakness, Low-Sodium Diet - Follow up Plan Follow up with: Familia Bishop [Referring] - 10/10/18 Jose Ramon Mejias MD [Primary Care Provider] - 10/09/18 Disposition: Home, Self-Nursing Home Medications: Home Medications Medication Instructions Recorded Confirmed Type Aspirin [Aspir 81] 81 mg PO DAILY 08/04/17 10/02/18 History Atorvastatin Calcium [Atorvastatin 80 mg PO HS 08/04/17 10/02/18 History 80mg Tab] Gabapentin [Gabapentin 300mg Cap] 300 mg PO TID 08/04/17 10/02/18 History sitagliptin 25 mg tablet 25 mg PO DAILY 08/22/17 10/02/18 History Furosemide [Furosemide 20mg Tab] 20 mg PO DAILY 09/09/17 10/02/18 History Spironolactone 50 mg PO BID 03/13/18 10/02/18 History Clopidogrel Bisulfate [Plavix 75mg 75 mg PO DAILY 05/23/18 10/02/18 History Tab] Isosorbide Mononitrate [Imdur 30mg 30 mg PO DAILY 05/23/18 10/02/18 History ER tablet] Melatonin 5 mg PO HS PRN 09/15/18 10/02/18 History Omeprazole [Omeprazole 20mg Tab] 20 mg PO DAILY PRN 09/15/18 10/02/18 History Ondansetron HCl [Ondansetron 4mg 4 mg PO Q8HP PRN 09/15/18 10/02/18 History Tablet] Tamsulosin HCl [Flomax 0.4mg 0.4 mg PO HS 09/15/18 10/02/18 History capsule] Prescriptions/Medication Reconciliation: Continue sitagliptin 25 mg tablet 25 mg PO DAILY Gabapentin [Gabapentin 300mg Cap] 300 mg PO TID Atorvastatin Calcium [Atorvastatin 80mg Tab] 80 mg PO HS Aspirin [Aspir 81] 81 mg PO DAILY Spironolactone 50 mg PO BID Isosorbide Mononitrate [Imdur 30mg ER tablet] 30 mg PO DAILY Omeprazole [Omeprazole 20mg Tab] 20 mg PO DAILY PRN PRN Reason: Heartburn Tamsulosin HCl [Flomax 0.4mg capsule] 0.4 mg PO HS Ondansetron HCl [Ondansetron 4mg Tablet] 4 mg PO Q8HP PRN PRN Reason: Nausea Melatonin 5 mg PO HS PRN PRN Reason: Sleep Furosemide [Furosemide 20mg Tab] 20 mg PO DAILY Discontinued Clopidogrel Bisulfate [Plavix 75mg Tab] 75 mg PO DAILY
== END 2018-10-03 18:50 | disposition home or self-care (01) | DRG 841 ==
LOC: ER 06:08 → 2ND 07:59
PROVIDERS: ADMIT Internal Medicine Adolescent Medicine; ATTEND Internal Medicine Adolescent Medicine
CPT/HCPCS: 36415; 71010; 71045; 80048; 80053; 81001; 82962; 83010; 83615; 84484; 85014; 85018; 85025; 86850; 93005; 96365; 99285; P9016

== ENCOUNTER → 2018-10-09 09:40 | Outpatient (POV) | payer MEDICARE, SELFPAY ==
[2018-10-09 10:03] VITALS: BP 109/59; PULSE 79; RESP 18; O2SAT 98
--- NOTE | 2018-10-09 12:54 | HMH.PMCON ---
Assessment and Plan (1) Degenerative disc disease Current visit: Yes Status: Chronic Qualifiers: Spinal region: lumbar Qualified Code(s): M51.36 - Other intervertebral disc degeneration, lumbar region Category: Medical (2) Lumbar radiculopathy Current visit: Yes Status: Chronic Category: Medical Code(s): M54.16 - Radiculopathy, lumbar region - Assessment and plan all Dx Assessment and Plan for all problems:: Patient and I had a discussion in which way he would like to start his plan of care. Patient would like to start with an epidural injection to see if this is beneficial for him. If he does not get any benefit from it we will move to a more diagnostic imaging such as an MRI. Patient does have an x-ray showing degenerative changes in his lower spine. We will schedule L5-S1 lumbar epidural steroid injection. HPI - Data of Consult Consult date: 10/09/18 Requesting Physician: Keya Galvan APRN Primary Care Provider: Jose Ramon Mejias MD - Consult Narrative Reason for consult: Back pain History of present illness: Mr. Acuña is a 78 year old male who presents today for consultation in regards to his low back pain. Patient has lower back pain and sometimes hip pain. He rates his pain a 6 out of 10. He is trying to stay as active as possible. Patient denies numbness and tingling in his lower extremities. Patient states lying flat increases his pain will nothing really decreases it. He is currently on an anti-inflammatory. He is also on gabapentin. Patient has had pain for several years however it has worsened lately. He does have an x-ray showing degenerative changes in his lower back. Patient and I had discussions in which way he would like to move forward. At this time he would like to try an injection and if he gets no relief from it potentially an MRI. Patient is not on any anticoagulation therapy. He is continuing home stretching program. CC: Keya Galvan APRN [facility] History I have reviewed the patient's past medical history: Yes Medical History: Reports:: Cancer (COLON, SKIN), Coronary Artery Disease, Gastroesophageal Reflux Disease(GERD), Heart Murmur, Hyperlipidemia, Hypertension, Myocardial Infarction, Osteoporosis, Renal Disease Denies:: Diabetes Mellitus Type 1, Diabetes Mellitus Type 2, Internal Pacemaker, MRSA, Seizures *Have you ever received a pneumonia vaccine?: No *Have you received a flu vaccine this season?: No Other Medical History: Reports: Anemia, Chemotherapy, Osteoporosis, Other. Denies: Blood Transfusion Reaction Laterality Cases: Left: ACL Repair, Bilateral: Other Other Surgeries: Yes: Cancer Surgery, Cardiac Catheterization, Cardiac Surgery, Colonoscopy, Coronary Stent, Other. No: Pacemaker Amputation: No Fractures: No - *Social History Smoking Status: Never smoker Alcohol Intake: never Alcohol Intake Frequency:: other Substance Use Type: denies use *Occupational Status:: retired, disabled Housing: house Household Members: significant other *Travel in the last 8 weeks: None - Psychiatric History Expresses thoughts of harming self/others: None Suicide Plan Description: No Plan Family Hx:: Cancer, Heart Attack, Hyperlipidemia, Hypertension Review of Systems - Review of Systems ROS General: no recent weight change, no fever, no sleep disturbances Respiratory: no cough, no shortness of air, no recurring pulmonary infections Cardiovascular/Peripheral Vascular: No chest pain, No palpitations, no edema, no shortness of breath. Gastrointestinal: no new onset incontinence Genitourinary: no new onset incontinence Musculoskeletal: Back pain Psychiatric: normal mood/ affect, Neurological: [denies weakness in extremities], [denies balance issues] Meds Home Medications Medication Instructions Recorded Confirmed Type Aspirin [Aspir 81] 81 mg PO DAILY 08/04/17 10/02/18 History Atorvastatin Calcium [Atorvastatin 80 mg PO HS 08/04/17 0
--- NOTE | 2018-10-09 12:58 | P.CONS_ITS ---
Assessment and Plan (1) Degenerative disc disease Current visit: Yes Status: Chronic Qualifiers: Spinal region: lumbar Qualified Code(s): M51.36 - Other intervertebral disc degeneration, lumbar region Category: Medical (2) Lumbar radiculopathy Current visit: Yes Status: Chronic Category: Medical Code(s): M54.16 - Radiculopathy, lumbar region - Assessment and plan all Dx Assessment and Plan for all problems:: Patient and I had a discussion in which way he would like to start his plan of care. Patient would like to start with an epidural injection to see if this is beneficial for him. If he does not get any benefit from it we will move to a more diagnostic imaging such as an MRI. Patient does have an x-ray showing degenerative changes in his lower spine. We will schedule L5-S1 lumbar epidural steroid injection. HPI - Data of Consult Consult date: 10/09/18 Requesting Physician: Keya Galvan APRN Primary Care Provider: Jose Ramon Mejias MD - Consult Narrative Reason for consult: Back pain History of present illness: Mr. Acuña is a 78 year old male who presents today for consultation in regards to his low back pain. Patient has lower back pain and sometimes hip pain. He rates his pain a 6 out of 10. He is trying to stay as active as possible. Patient denies numbness and tingling in his lower extremities. Patient states lying flat increases his pain will nothing really decreases it. He is currently on an anti-inflammatory. He is also on gabapentin. Patient has had pain for several years however it has worsened lately. He does have an x-ray showing degenerative changes in his lower back. Patient and I had discussions in which way he would like to move forward. At this time he would like to try an injection and if he gets no relief from it potentially an MRI. Patient is not on any anticoagulation therapy. He is continuing home stretching program. CC: Keya Galvan APRN [facility] History I have reviewed the patient's past medical history: Yes Medical History: Reports:: Cancer (COLON, SKIN), Coronary Artery Disease, Gastroesophageal Reflux Disease(GERD), Heart Murmur, Hyperlipidemia, Hypertension, Myocardial Infarction, Osteoporosis, Renal Disease Denies:: Diabetes Mellitus Type 1, Diabetes Mellitus Type 2, Internal Pacemaker, MRSA, Seizures *Have you ever received a pneumonia vaccine?: No *Have you received a flu vaccine this season?: No Other Medical History: Reports: Anemia, Chemotherapy, Osteoporosis, Other. Denies: Blood Transfusion Reaction Laterality Cases: Left: ACL Repair, Bilateral: Other Other Surgeries: Yes: Cancer Surgery, Cardiac Catheterization, Cardiac Surgery, Colonoscopy, Coronary Stent, Other. No: Pacemaker Amputation: No Fractures: No - *Social History Smoking Status: Never smoker Alcohol Intake: never Alcohol Intake Frequency:: other Substance Use Type: denies use *Occupational Status:: retired, disabled Housing: house Household Members: significant other *Travel in the last 8 weeks: None - Psychiatric History Expresses thoughts of harming self/others: None Suicide Plan Description: No Plan Family Hx:: Cancer, Heart Attack, Hyperlipidemia, Hypertension Review of Systems - Review of Systems ROS General: no recent weight change, no fever, no sleep disturbances Respiratory: no cough, no shortness of air, no recurring pulmonary infections Cardiovascular/Peripheral Vascular: No chest pain, No palpitations, no edema, no shortness of breath. Gastrointestinal: no new onset incontinence
== END ==
PROVIDERS: PCP Internal Medicine Adolescent Medicine; Visit Provider Clinical Nurse Specialist Family Health
DX: M51.16 Intervertebral disc disorders with radiculopathy, lumbar region (principal)
CPT/HCPCS: 99202

== ENCOUNTER 2018-11-16 11:57 | Observation (INO) | payer MEDICARE, SELFPAY ==
[2018-11-16 12:11] VITALS: BP 131/62; PULSE 103; RESP 20; TEMP 36.7; O2SAT 95; BMI 26.6
--- NOTE | 2018-11-16 12:24 | XR_ITS ---
XR chest 2V HISTORY: shortness of breath HISTORY of lymphoma. ORDERING PHYSICIAN: Jose Ramon Mejias MD PATIENT AGE: 78 years Technique: PA and lateral chest COMPARISON: 10/02/2018 portable chest& the 10/19/2018 CT chest Also Aug 2017 PA & lateral CXR;... FINDINGS: RIGHT LUNG Since the most recent portable chest 10/02/2018 there is been interval improvement and progressive clearing at the right lung base. Specifically specifically there appear to be some mild airway thickening with clearing of the perihilar infiltrate as well as infiltrate seen at the right infrahilar region on that exam which is notably improved Minimal residual chronic changes at the right lung base.- As seen on CT chest 10/19/2018 . LEFT LUNG Left lung base continues to demonstrate increased markings throughout the left lower lobe. This was seen on back on Aug 2017 PA & lateral CXR;... Then again on 10/02/2018 portable chest as well. Also note a a similar pattern on the 10/19/2018 CT chest suggesting we are viewing long-standing mainly chronic findings here. It is difficult to exclude a superimposed infiltrate at the left lower throughout the LLL. However after reviewing all these studies I tend to favor reviewing mainly chronic changes here at the left lung base... The heart is normal in size. The shelli and mediastinal structures appear unchanged. Minimal calcification aortic knob. Wedge compression fracture at T12 is new since previous studies Otherwise Mid and upper T-spine appears stable on plain film. No pleural effusion. IMPRESSION......... 1. No new findings when compared to September CXR & CT chest : ... Right lung with interval clearing and improvement since September ... Left lung base.-Persistent prominent markings most likely reflecting chronic changes. Difficult to exclude... Minimal residual infiltrate but favor primarily chronic changes changes 2. New wedge compression fracture T12 noted
--- NOTE | 2018-11-16 12:28 | CT_ITS ---
CT lumbar spine wo con . INDICATION: Fell 3 weeks agoBack pain. ITS.REASON: back pain ORDERING PHYSICIAN: Jose Ramon Mejias MD PATIENT AGE: 78 years COMPARISON: No comparison to 9 cm and is mainly fluid in Likely to 10 92 sagittal T2-3. The chin a to this TECHNIQUE: Axial images obtained with sagittal and coronal reformats. All CT scans at the facility use one or more dose reduction, viz: automated exposure control, ma/kV adjustment per patient size (including targeted exams where dose is matched to indication, i.e. head), or iterative reconstruction technique. FINDINGS: Today's CT scanning begins at the T9 level and then continues down through the the [id number] . T 10-11. Moderate Central disc protrusion which effaces thecal sac midline & just to the right of midline.. This was evident on these 10/19/2018 CT abdomen study. T11/12. Mild disc space narrowing. With minimal disc bulge central & to the right. T12. Marked wedge compression fracture. Up to 50% loss of height centrally due to the biconcave endplate compression Anteriorly there is 30% loss of height yielding the wedge configuration. There is slight posterior bulging/displacement of this vertebral body is seen on sagittal image 30. Which was not evident previously. This along with some posterior ridging which was seen previously does narrow the spinal canal and yield mild central canal spinal stenosis at this level. Spinal canal measures 10 mm AP just to the right of midline Fracture line can be seen passing through this vertebral body on sagittal reconstruction.. T12/L1 disc space narrowing posteriorly and more pronounced than previous study. Scant disc bulge at this level L1/L2. Trace disc space narrowing with mild diffuse disc bulge slightly more evident to the right paracentral L2/3. degenerative disc space narrowing with vacuum phenomena.. Mild diffuse disc bulge yields mild bilateral foraminal encroachment L3/4 disc space narrowing with vacuum phenomena. Moderate moderate foraminal encroachment bilateral left greater than right. L4/5 Diffuse disc bulge. Facet hypertrophy along with Generous Ligamentum flavum hypertrophy.. Features combine to yield moderate central canal stenosis & moderate bilateral foraminal encroachment L5/S1. Mild disc bulge. Moderate bilateral facet and ligament flavum hypertrophy. Mild foraminal encroachment. The residual left periaortic adenopathy is again observed node measures up to 2.3 cm transverse times up to 2.6 cm AP nodes here appear stable and not slightly larger than on September study. Also will warrant follow-up ongoing as well.. Adenopathy also surrounding the LORENZO is seen previously. An Enlarged azygous node measuring 12 mm again on today's axial slice 28, 29 appears incrementally larger. Lung bases again demonstrate the airway thickening bilaterally and prominent chronic changes and infiltrate chronic infiltrate at the left base. This is similar to the October 19 CT chest study IMPRESSION: 1. . Prominent wedge compression fracture at T12 with sclerosis,. Appearance compatible with injury 3 weeks ago with now healing wedge compression fracture changes / sclerosis. . ... Wedging with additional Biconcave endplate compression changes (Yields 50% loss of height centrally due to Biconcave endplate changes ; & 30% loss of height anteriorly) margin T12) ... Slight posterior bulging & displacement of the posterior vertebral body, does narrow the spinal canal ,.. Mild central canal stenosis posteriorly at T12 level 2. Multilevel Degenerative disc changes & disc bulging, along with posterior element hypertrophy: .... L2/3. Diffuse disc bulge . With Borderline to mild central canal stenosis ... L3/4. Diffuse disc bulge along
[2018-11-16 13:01] LABS: Basophils % 0.3 % (0.1-2.0); Eosinophils # 0.1 K/mm3 (0.0-0.4); Eosinophils % 1.3 % (0.1-12.0); Hematocrit 25.5 % (42.0-52.0); Hemoglobin 8.7 g/dL (14.1-18.0); Lymphocytes # 0.8 K/mm3 (0.7-4.5); Mean Corpuscular HGB Conc 34.3 g/dL (31.8-35.4); Mean Corpuscular Hemoglobin 34.6 pg (27.0-31.2); Mean Corpuscular Volume 101.1 fl (80-94); Mean Platelet Volume 7.8 fl (7.4-10.4); Monocytes # 0.5 K/mm3 (0.1-1.0); Monocytes % 6.2 % (1.7-9.3); Neutrophils # 7.3 K/mm3 (1.8-7.8); Neutrophils % 83.1 % (37.0-80.0); Platelet Count 210 K/mm3 (142-424); Red Blood Count 2.52 M/mm3 (4.60-6.20); Red Cell Distribution Width 20.4 % (11.5-17.5); White Blood Count 8.7 K/mm3 (4.8-10.8)
[2018-11-16 13:11] LABS: Alanine Aminotransferase 21 U/L (12-78); Albumin/Globulin Ratio 0.6 (1.1-1.8); Alkaline Phosphatase 191 U/L (46-116); Anion Gap 11.6 mEq/L (5-15); Aspartate Amino Transferase 27 U/L (15-37); Bilirubin,Total 0.7 mg/dL (0.2-1.0); Blood Urea Nitrogen 21 mg/dL (7-18); Carbon Dioxide 25 mmol/L (21.0-32.0); Chloride 99 mmol/L (98-107); Creatinine Clearance Estimated 33 mL/min (50-200); Creatinine,Serum 2.12 mg/dL (0.70-1.30); Estimated Glomerular Filt Rate 30 ml/min (>60); GFR (African American) 37 ML/MIN (>60); Globulin 3.6 gm/dl (1.3-3.2); Glucose 209 mg/dL (74-106); Potassium 4.6 mmoL/L (3.5-5.1); Sodium 131 mmol/L (136-145); Total Protein,Serum 5.6 gm/dL (6.4-8.2)
--- NOTE | 2018-11-16 13:21 | P.CONPHA_ITS ---
[facility] Pharmacy VTE Monitoring - Patient Demographics Admission date: 11/16/18 Report Date: 11/16/18 Time: 13:20 Allergies/Adverse Reactions: Patient Allergies No Known Allergies Allergy (Verified 10/19/18 08:58) Height: 1.73 m Weight: 79.435 kg - VTE Risk Labs: VTE Related Lab Results Hgb 8.7 g/dL (14.1-18.0) L 11/16/18 12:50 Hct 25.5 % (42.0-52.0) L 11/16/18 12:50 Plt Count 210 K/mm3 (142-424) 11/16/18 12:50 BUN 21 mg/dL (7-18) H 11/16/18 12:50 Creatinine 2.12 mg/dL (0.70-1.30) H 11/16/18 12:50 Estimated Creat Clear 33 mL/min (50-200) 11/16/18 12:50 Was VTE Risk Assessment Performed: Yes VTE Score: 4 VTE Risk Level: Low Risk Clinical Trial Participant: No - Prophylaxis VTE Prophylaxis Ordered?: Yes Types of VTE Prophylaxis: TEDS Knee High
[2018-11-16 13:32] VITALS: O2SAT 95
--- NOTE | 2018-11-16 14:02 | HMH.HP ---
*Admission Date: 11/16/18 *Chief complaint: intractable back pain, SOA, LE edema *History of present illness: 78 year old male with a h/o diabetes, CAD, aortic stenosis, diastolic heart failure, anemia, CRI, COPD, Non Hodgkins Lymphoma and chronic low back presented to PCP office with intractable back pain, LE edema and SOA. Patient is followed by Dr. Tellez who performed lumbar epidural injection approx 2 weeks ago. Two days after the injection patient had increase in low back pain that radiates down anterior left anterior thigh. States I can't eat. I can't sleep because it hurts so bad. The only relief he gets occurs when he sits in chair and leans forward. Over the last week he has also had increase in LE edema and SOA. States I can't even get my shoes on. Denies any recent medication changes. Contributes SOA to his back pain. In the office, he was noted to have significant LE edema, dyspnea with minimal exertion and 11 pound weight gain in 10 days. Patient was admitted to [facility] for pain management consult and further evaluation. [facility] History I have reviewed the patient's past medical history: Yes Medical History: Reports:: Coronary Artery Disease, Diabetes Mellitus Type 2, Gastroesophageal Reflux Disease(GERD), Heart Murmur, Hyperlipidemia, Hypertension, Myocardial Infarction, Osteoporosis, Renal Disease Denies:: Cancer, Diabetes Mellitus Type 1, Internal Pacemaker, MRSA, Seizures *Have you ever received a pneumonia vaccine?: Yes *Have you received a flu vaccine this season?: Yes Other Medical History: Reports: Anemia, Chemotherapy, Osteoporosis, Other. Denies: Blood Transfusion Reaction Laterality Cases: Left: ACL Repair, Arthroscopy Knee, Bilateral: Other Other Surgeries: Yes: Cancer Surgery, Cardiac Catheterization, Cardiac Surgery, Colonoscopy, Coronary Stent, Other. No: Pacemaker Amputation: No Fractures: No - *Social History Educational Level: Completed Grade School Smoking Status: Never smoker Alcohol Intake: never Alcohol Intake Frequency:: other Substance Use Type: denies use *Occupational Status:: retired, disabled Housing: house Household Members: significant other *Travel in the last 8 weeks: None - Psychiatric History Expresses thoughts of harming self/others: None Suicide Plan Description: No Plan Family Hx:: Cancer, Heart Attack, Hyperlipidemia, Hypertension Review of Systems - Review of Systems Review of systems:: pertinent systems reviewed and negative unless documented below - Constitutional Reports weakness, Reports weight gain - *Cardiovascular Reports shortness of breath, Reports leg swelling - *Musculoskeletal Reports back pain Meds Home Medications Medication Instructions Recorded Confirmed Type Aspirin [Aspir 81] 81 mg PO DAILY 08/04/17 11/16/18 History Atorvastatin Calcium [Atorvastatin 80 mg PO HS 08/04/17 11/16/18 History 80mg Tab] Gabapentin [Gabapentin 300mg Cap] 300 mg PO TID 08/04/17 11/16/18 History sitagliptin 25 mg tablet 25 mg PO DAILY 08/22/17 11/16/18 History Furosemide [Furosemide 20mg Tab] 20 mg PO DAILY 09/09/17 11/16/18 History Spironolactone 50 mg PO BID 03/13/18 11/16/18 History Isosorbide Mononitrate [Imdur 30mg 30 mg PO DAILY 05/23/18 11/16/18 History ER tablet] Melatonin 5 mg PO HS PRN 09/15/18 11/16/18 History Omeprazole [Omeprazole 20mg Tab] 20 mg PO DAILY PRN 09/15/18 11/16/18 History Tamsulosin HCl [Flomax 0.4mg 0.4 mg PO HS 11/16/18 11/16/18 History capsule] Tramadol HCl [Tramadol 50mg 50 mg PO Q8HP PRN 11/16/18 11/16/18 History Tab] Allergies Allergy/AdvReac Type Severity Reaction Status Date / Time No Known Allergies Allergy Verified 10/19/18 08:58 Exam Vital signs and Labs for Last 24 Hours: Temp Pulse Resp BP Pulse Ox 98.0 F 103 H 20 131/62 95 11/16/18 12:11 11/16/18 12:11 11/16/18 12:11 11/16/18 12:11 11/16/18 13:32 Laboratory Results - last 24 hr 11/16/18 12:50: WBC 8.7, RBC 2.52 L, Hgb 8.7 L,
--- NOTE | 2018-11-16 14:11 | P.HP_ITS ---
*Admission Date: 11/16/18 *Chief complaint: intractable back pain, SOA, LE edema *History of present illness: 78 year old male with a h/o diabetes, CAD, aortic stenosis, diastolic heart failure, anemia, CRI, COPD, Non Hodgkins Lymphoma and chronic low back presented to PCP office with intractable back pain, LE edema and SOA. Patient is followed by Dr. Tellez who performed lumbar epidural injection approx 2 weeks ago. Two days after the injection patient had increase in low back pain that radiates down anterior left anterior thigh. States I can't eat. I can't sleep because it hurts so bad. The only relief he gets occurs when he sits in chair and leans forward. Over the last week he has also had increase in LE edema and SOA. States I can't even get my shoes on. Denies any recent medication changes. Contributes SOA to his back pain. In the office, he was noted to have significant LE edema, dyspnea with minimal exertion and 11 pound weight gain in 10 days. Patient was admitted to [facility] for pain management consult and further evaluation. [facility] History I have reviewed the patient's past medical history: Yes Medical History: Reports:: Coronary Artery Disease, Diabetes Mellitus Type 2, Gastroesophageal Reflux Disease(GERD), Heart Murmur, Hyperlipidemia, Hypertension, Myocardial Infarction, Osteoporosis, Renal Disease Denies:: Cancer, Diabetes Mellitus Type 1, Internal Pacemaker, MRSA, Seizures *Have you ever received a pneumonia vaccine?: Yes *Have you received a flu vaccine this season?: Yes Other Medical History: Reports: Anemia, Chemotherapy, Osteoporosis, Other. Denies: Blood Transfusion Reaction Laterality Cases: Left: ACL Repair, Arthroscopy Knee, Bilateral: Other Other Surgeries: Yes: Cancer Surgery, Cardiac Catheterization, Cardiac Surgery, Colonoscopy, Coronary Stent, Other. No: Pacemaker Amputation: No Fractures: No - *Social History Educational Level: Completed Grade School Smoking Status: Never smoker Alcohol Intake: never Alcohol Intake Frequency:: other Substance Use Type: denies use *Occupational Status:: retired, disabled Housing: house Household Members: significant other *Travel in the last 8 weeks: None - Psychiatric History Expresses thoughts of harming self/others: None Suicide Plan Description: No Plan Family Hx:: Cancer, Heart Attack, Hyperlipidemia, Hypertension Review of Systems - Review of Systems Review of systems:: pertinent systems reviewed and negative unless documented below - Constitutional Reports weakness, Reports weight gain - *Cardiovascular Reports shortness of breath, Reports leg swelling - *Musculoskeletal Reports back pain Meds Home Medications Medication Instructions Recorded Confirmed Type Aspirin [Aspir 81] 81 mg PO DAILY 08/04/17 11/16/18 History Atorvastatin Calcium [Atorvastatin 80 mg PO HS 08/04/17 11/16/18 History 80mg Tab] Gabapentin [Gabapentin 300mg Cap] 300 mg PO TID 08/04/17 11/16/18 History sitagliptin 25 mg tablet 25 mg PO DAILY 08/22/17 11/16/18 History Furosemide [Furosemide 20mg Tab] 20 mg PO DAILY 09/09/17 11/16/18 History Spironolactone 50 mg PO BID 03/13/18 11/16/18 History Isosorbide Mononitrate [Imdur 30mg 30 mg PO DAILY 05/23/18 11/16/18 History ER tablet] Melatonin 5 mg PO HS PRN 09/15/18 11/16/18 History Omeprazole [Omeprazole 20mg Tab] 20 mg PO DAILY PRN 09/15/18 11/16/18 History Tamsulosin HCl [Flomax 0.4mg 0.4 mg PO HS 11/16/18 11/16/18 History capsule] Tramadol HCl [Tramadol 50mg 50 mg PO Q8HP PRN 0
--- NOTE | 2018-11-16 14:56 | HMH.PMCON ---
Assessment and Plan (1) Leg edema Current visit: Yes Status: Acute Category: Medical Code(s): R60.0 - Localized edema (2) Lumbar back pain with radiculopathy affecting left lower extremity Current visit: Yes Status: Acute Category: Medical Code(s): M54.16 - Radiculopathy, lumbar region (3) Type 2 diabetes mellitus Current visit: Yes Status: Chronic Qualifiers: Diabetes mellitus terminal gauger supervisor insulin use: without terminal gauger supervisor use Category: Medical Code(s): E11.9 - Type 2 diabetes mellitus without complications (4) Non-Hodgkin lymphoma Current visit: Yes Status: Chronic Category: Medical Code(s): C85.90 - Non-Hodgkin lymphoma, unspecified, unspecified site (5) COPD (chronic obstructive pulmonary disease) Current visit: Yes Status: Chronic Qualifiers: COPD type: chronic bronchitis Category: Medical Code(s): J44.9 - Chronic obstructive pulmonary disease, unspecified (6) CAD (coronary artery disease) Current visit: No Status: Chronic Qualifiers: Coronary Disease-Associated Artery/Lesion type: [place] artery Associated angina: without angina Category: Medical Code(s): I25.10 - Atherosclerotic heart disease of [place] coronary artery without angina pectoris (7) CHF (congestive heart failure) Current visit: No Status: Chronic Qualifiers: Heart failure type: diastolic Heart failure chronicity: acute on chronic Qualified Code(s): I50.33 - Acute on chronic diastolic (congestive) heart failure Category: Medical Code(s): I50.9 - Heart failure, unspecified (8) Degenerative disc disease Current visit: No Status: Chronic Qualifiers: Spinal region: lumbar Qualified Code(s): M51.36 - Other intervertebral disc degeneration, lumbar region Category: Medical - Assessment and plan all Dx Assessment and Plan for all problems:: This patient recently had a CT scan. We will follow-up on the CT scan. We do recommend MRI as patient may have sustained a compression fracture with his last fall. MRI would determine if there is a compression fracture and age of compression fracture if present. Also patient has had return of his lymphoma. I would like an MRI to rule out metastasis. We will follow-up with this patient after his scans and on an outpatient basis. He may be a candidate for further injections or possibly intrathecal therapy. HPI - Data of Consult Patient: known to practice within the last 3 years Consult date: 11/16/18 Requesting Physician: Jose Ramon Mejias MD Primary Care Provider: Jose Ramon Mejias MD - Consult Narrative Reason for consult: Worsening low back pain and left leg pain History of present illness: Mr. Acuña is a 78 year old male who is well-known to us here in the pain clinic. He had a CT scan today which is not been read yet we did do a lumbar epidural steroid injection on 10/19/2018. Patient was better for short period of time then his pain returned in his back and down his left leg. He did have a fall around the time of the injection. He has no motor or sensory deficits except for increased pain in the low back and down left leg. CC: Jose Ramon Mejias MD [facility] History I have reviewed the patient's past medical history: Yes Medical History: Reports:: Coronary Artery Disease, Diabetes Mellitus Type 2, Gastroesophageal Reflux Disease(GERD), Heart Murmur, Hyperlipidemia, Hypertension, Myocardial Infarction, Osteoporosis, Renal Disease Denies:: Cancer, Diabetes Mellitus Type 1, Internal Pacemaker, MRSA, Seizures *Have you ever received a pneumonia vaccine?: Yes *Have you received a flu vaccine this season?: Yes Other Medical History: Reports: Anemia, Chemotherapy, Osteoporosis, Other. Denies: Blood Transfusion Reaction Laterality Cases: Left: ACL Repair, Arthroscopy Knee, Bilateral: Other Other Surgeries: Yes: Cancer Surgery, Cardiac Catheterization, Cardiac Surgery, Colonoscopy, Coronary Stent, Other. No: Pacemaker Amputati
--- NOTE | 2018-11-16 15:00 | P.CONS_ITS ---
Assessment and Plan (1) Leg edema Current visit: Yes Status: Acute Category: Medical Code(s): R60.0 - Localized edema (2) Lumbar back pain with radiculopathy affecting left lower extremity Current visit: Yes Status: Acute Category: Medical Code(s): M54.16 - Radiculopathy, lumbar region (3) Type 2 diabetes mellitus Current visit: Yes Status: Chronic Qualifiers: Diabetes mellitus security administrator insulin use: without security administrator use Category: Medical Code(s): E11.9 - Type 2 diabetes mellitus without complications (4) Non-Hodgkin lymphoma Current visit: Yes Status: Chronic Category: Medical Code(s): C85.90 - Non-Hodgkin lymphoma, unspecified, unspecified site (5) COPD (chronic obstructive pulmonary disease) Current visit: Yes Status: Chronic Qualifiers: COPD type: chronic bronchitis Category: Medical Code(s): J44.9 - Chronic obstructive pulmonary disease, unspecified (6) CAD (coronary artery disease) Current visit: No Status: Chronic Qualifiers: Coronary Disease-Associated Artery/Lesion type: [place] artery Associated angina: without angina Category: Medical Code(s): I25.10 - Atherosclerotic heart disease of [place] coronary artery without angina pectoris (7) CHF (congestive heart failure) Current visit: No Status: Chronic Qualifiers: Heart failure type: diastolic Heart failure chronicity: acute on chronic Qualified Code(s): I50.33 - Acute on chronic diastolic (congestive) heart failure Category: Medical Code(s): I50.9 - Heart failure, unspecified (8) Degenerative disc disease Current visit: No Status: Chronic Qualifiers: Spinal region: lumbar Qualified Code(s): M51.36 - Other intervertebral disc degeneration, lumbar region Category: Medical - Assessment and plan all Dx Assessment and Plan for all problems:: This patient recently had a CT scan. We will follow-up on the CT scan. We do recommend MRI as patient may have sustained a compression fracture with his last fall. MRI would determine if there is a compression fracture and age of compression fracture if present. Also patient has had return of his lymphoma. I would like an MRI to rule out metastasis. We will follow-up with this patient after his scans and on an outpatient basis. He may be a candidate for further injections or possibly intrathecal therapy. HPI - Data of Consult Patient: known to practice within the last 3 years Consult date: 11/16/18 Requesting Physician: Jose Ramon Mejias MD Primary Care Provider: Jose Ramon Mejias MD - Consult Narrative Reason for consult: Worsening low back pain and left leg pain History of present illness: Mr. Acuña is a 78 year old male who is well-known to us here in the pain clinic. He had a CT scan today which is not been read yet we did do a lumbar epidural steroid injection on 10/19/2018. Patient was better for short period of time then his pain returned in his back and down his left leg. He did have a fall around the time of the injection. He has no motor or sensory deficits except for increased pain in the low back and down left leg. CC: Jose Ramon Mejias MD [facility] History I have reviewed the patient's past medical history: Yes Medical History: Reports:: Coronary Artery Disease, Diabetes Mellitus Type 2, Gastroesophageal Reflux Disease(GERD), Heart Murmur, Hyperlipidemia, Hypertension, Myocardial Infarction, Osteoporosis, Renal Disease Denies:: Cancer, Diabetes Mellitus Type 1, Internal Pacemaker, MRSA, Seizures *Have you ever received a pneumonia vaccine?: Yes *Hav
[2018-11-16 16:00] VITALS: BP 118/64; PULSE 95; RESP 18; TEMP 36.6; O2SAT 95
--- NOTE | 2018-11-16 19:15 | PC.NURSE ---
report given to catherine
[2018-11-16 20:00] VITALS: BP 128/67; PULSE 97; RESP 20; TEMP 36.6; O2SAT 97
[2018-11-16 22:27] LABS: POC Glucose,Bedside 243 (70-110)
[2018-11-16 22:27] LABS: POC Glucose,Bedside 232 (70-110)
[2018-11-17 04:00] VITALS: BP 112/68; PULSE 89; RESP 18; TEMP 36.5; O2SAT 96; BMI 27.1
--- NOTE | 2018-11-17 04:26 | PC.NURSE ---
PT HAS NOT SLEPT. SITS UP, HUNCHED OVER MOST OF TIME SECONDARY TO BACK PAIN. PT HAS RECEIVED PAIN MED TWICE THIS SHIFT. BLE REMAIN SWOLLEN THIS AM WITH RIGHT>LEFT. NO SOB REPORTED. CONTINUES ON RA.
[2018-11-17 06:18] LABS: POC Glucose,Bedside 176 (70-110)
[2018-11-17 08:00] VITALS: BP 109/53; PULSE 92; RESP 16; TEMP 36.8; O2SAT 93
[2018-11-17 08:54] VITALS: O2SAT 95
--- NOTE | 2018-11-17 09:10 | HMH.ACPN2 ---
Internal Medicine - PN: Subj *Date: 11/17/18 *Time: 09:10 Interval history: Patient is a little bit down today emotionally compared to his baseline. He states that he feels and notes that this is mostly from his pain. He reports pain in his chest, left hip, radiation down into his thigh and some bony pain in his back. Denies breathing problems. Exam Vital signs and Labs for Last 24 Hours: Temp Pulse Resp BP Pulse Ox 97.7 F 89 18 112/68 96 11/17/18 04:00 11/17/18 04:00 11/17/18 04:00 11/17/18 04:00 11/17/18 04:00 Laboratory Results - last 24 hr 11/16/18 12:50: WBC 8.7, RBC 2.52 L, Hgb 8.7 L, Hct 25.5 L, MCV 101.1 H, MCH 34.6 H, MCHC 34.3, RDW 20.4 H, Plt Count 210, MPV 7.8, Neut % (Auto) 83.1 H, Lymph % (Auto) 9.0 L, [place] % (Auto) 6.2, Eos % (Auto) 1.3, Baso % (Auto) 0.3, Neut # (Auto) 7.3, Lymph # (Auto) 0.8, [place] # (Auto) 0.5, Eos # (Auto) 0.1, Baso # (Auto) 0.0 11/16/18 12:50: Sodium 131 L, Potassium 4.6, Chloride 99, Carbon Dioxide 25, Anion Gap 11.6, BUN 21 H, Creatinine 2.12 H, Estimated Creat Clear 33, Estimated GFR 30 L, Est GFR ( Amer) 37 L, Glucose 209 H, Calcium 8.0 L, Total Bilirubin 0.7, AST 27, ALT 21, Alkaline Phosphatase 191 H, Total Protein 5.6 L, Albumin 2.0 L, Globulin 3.6 H, Albumin/Globulin Ratio 0.6 L 11/16/18 16:11: POC Glucose 243 H 11/16/18 20:21: POC Glucose 232 H 11/17/18 06:09: POC Glucose 176 H I & O for Last 24 hours: Intake & Output 11/14/18 11/15/18 11/16/18 11/17/18 11:59 11:59 11:59 11:59 Intake Total 1792 / 1792 Output Total 1850 / 1850 Balance -58 / -58 Weight 178 lb 2 oz Narrative: Patient is awake, alert. Oropharynx clear. No JVD. Lungs have fairly good air entry. Heart rate regular. Abdomen soft and nontender. Pain with movement of hips and back as previously noted. Trace ankle edema. Assessment and Plan (1) Leg edema Current visit: Yes Status: Acute Category: Medical Code(s): R60.0 - Localized edema (2) Lumbar back pain with radiculopathy affecting left lower extremity Current visit: Yes Status: Acute Category: Medical Code(s): M54.16 - Radiculopathy, lumbar region (3) Type 2 diabetes mellitus Current visit: Yes Status: Chronic Qualifiers: Diabetes mellitus senior care insulin use: without senior care use Category: Medical Code(s): E11.9 - Type 2 diabetes mellitus without complications (4) Non-Hodgkin lymphoma Current visit: Yes Status: Chronic Category: Medical Code(s): C85.90 - Non-Hodgkin lymphoma, unspecified, unspecified site (5) COPD (chronic obstructive pulmonary disease) Current visit: Yes Status: Chronic Qualifiers: COPD type: chronic bronchitis Category: Medical Code(s): J44.9 - Chronic obstructive pulmonary disease, unspecified (6) CAD (coronary artery disease) Current visit: No Status: Chronic Qualifiers: Coronary Disease-Associated Artery/Lesion type: [place] artery Associated angina: without angina Category: Medical Code(s): I25.10 - Atherosclerotic heart disease of [place] coronary artery without angina pectoris (7) CHF (congestive heart failure) Current visit: No Status: Chronic Qualifiers: Heart failure type: diastolic Heart failure chronicity: acute on chronic Qualified Code(s): I50.33 - Acute on chronic diastolic (congestive) heart failure Category: Medical Code(s): I50.9 - Heart failure, unspecified (8) Degenerative disc disease Current visit: No Status: Chronic Qualifiers: Spinal region: lumbar Qualified Code(s): M51.36 - Other intervertebral disc degeneration, lumbar region Category: Medical - Assessment and plan all Dx Assessment and Plan for all problems:: 1. Cancer associated pain-change hydrocodone to oxycodone for better bony pain relief and close monitoring in the hospital. 2. Anemia issues. Blood counts pending from this morning. Continue observation closely. 3. Pain con
[2018-11-17 09:43] LABS: Basophils # 0.1 K/mm3 (0-0.2); Basophils % 0.5 % (0.1-2.0); Eosinophils # 0.2 K/mm3 (0.0-0.4); Hemoglobin 8.9 g/dL (14.1-18.0); Lymphocytes # 0.8 K/mm3 (0.7-4.5); Lymphocytes % 9.1 % (10-50); Mean Corpuscular HGB Conc 34.2 g/dL (31.8-35.4); Mean Corpuscular Hemoglobin 34.6 pg (27.0-31.2); Mean Corpuscular Volume 101.1 fl (80-94); Mean Platelet Volume 8.5 fl (7.4-10.4); Monocytes # 0.5 K/mm3 (0.1-1.0); Monocytes % 5.3 % (1.7-9.3); Neutrophils # 7.1 K/mm3 (1.8-7.8); Neutrophils % 83.1 % (37.0-80.0); Platelet Count 192 K/mm3 (142-424); Red Blood Count 2.57 M/mm3 (4.60-6.20); Red Cell Distribution Width 20.3 % (11.5-17.5); White Blood Count 8.6 K/mm3 (4.8-10.8)
[2018-11-17 09:56] LABS: Alanine Aminotransferase 18 U/L (12-78); Albumin Level 2.1 gm/dL (3.4-5.0); Albumin/Globulin Ratio 0.6 (1.1-1.8); Alkaline Phosphatase 218 U/L (46-116); Anion Gap 14.4 mEq/L (5-15); Aspartate Amino Transferase 22 U/L (15-37); Bilirubin,Total 0.7 mg/dL (0.2-1.0); Blood Urea Nitrogen 26 mg/dL (7-18); Carbon Dioxide 25 mmol/L (21.0-32.0); Chloride 98 mmol/L (98-107); Creatinine Clearance Estimated 31 mL/min (50-200); Creatinine,Serum 2.28 mg/dL (0.70-1.30); Estimated Glomerular Filt Rate 28 ml/min (>60); GFR (African American) 34 ML/MIN (>60); Globulin 3.6 gm/dl (1.3-3.2); Glucose 235 mg/dL (74-106); Potassium 4.4 mmoL/L (3.5-5.1); Sodium 133 mmol/L (136-145); Total Protein,Serum 5.7 gm/dL (6.4-8.2)
[2018-11-17 11:05] LABS: POC Glucose,Bedside 272 (70-110)
--- NOTE | 2018-11-17 11:46 | PC.NURSE ---
LATE ENTRY -1100 CARE ROUNDING. NO NEEDS VOICED AT THIS TIME. URINAL EMPTIED. WATER PITCHER REFILLED.
[2018-11-17 16:00] VITALS: BP 119/55; PULSE 84; RESP 18; TEMP 36.7; O2SAT 94
--- NOTE | 2018-11-17 17:39 | PC.NURSE ---
LATE ENTRY 1700 CARE ROUNDING. NO NEEDS WAS VOICED AT THIS TIME.URINAL EMPTIED & TRASH WAS CHANGED.REFILLED ICE WATER PITCHER,
[2018-11-17 20:00] VITALS: BP 141/63; PULSE 99; RESP 20; TEMP 36.8; O2SAT 94
[2018-11-17 20:45] LABS: POC Glucose,Bedside 234 (70-110)
[2018-11-17 20:45] LABS: POC Glucose,Bedside 122 (70-110)
[2018-11-18 04:00] VITALS: BP 116/60; PULSE 87; RESP 18; TEMP 36.7; O2SAT 93; BMI 27.8
--- NOTE | 2018-11-18 04:49 | PC.NURSE ---
PT HAS HAD DIFFICULTY SLEEPING TONIGHT. STATES PAIN IS MUCH IMPROVED FROM LAST EVENING. PT HAS BEEN MEDICATED ONCE FOR PAIN-SEE SEP. BLE REMAIN EDEMATOUS. PT HAS BEEN AMBULATING INDEPENDENTLY. SOME CONFUSION NOTED DURING THE NIGHT.
[2018-11-18 06:09] LABS: POC Glucose,Bedside 143 (70-110)
[2018-11-18 07:23] LABS: Basophils % 0.3 % (0.1-2.0); Eosinophils # 0.2 K/mm3 (0.0-0.4); Eosinophils % 2.4 % (0.1-12.0); Hemoglobin 8.6 g/dL (14.1-18.0); Mean Corpuscular HGB Conc 34.7 g/dL (31.8-35.4); Mean Corpuscular Hemoglobin 35.1 pg (27.0-31.2); Mean Corpuscular Volume 101.2 fl (80-94); Mean Platelet Volume 8.1 fl (7.4-10.4); Monocytes # 0.5 K/mm3 (0.1-1.0); Monocytes % 5.9 % (1.7-9.3); Neutrophils # 6.2 K/mm3 (1.8-7.8); Neutrophils % 78.4 % (37.0-80.0); Platelet Count 201 K/mm3 (142-424); Red Blood Count 2.45 M/mm3 (4.60-6.20); Red Cell Distribution Width 20.2 % (11.5-17.5); White Blood Count 7.9 K/mm3 (4.8-10.8)
[2018-11-18 07:24] LABS: Hematocrit 24.8 % (42.0-52.0)
[2018-11-18 07:37] LABS: Alanine Aminotransferase 17 U/L (12-78); Albumin/Globulin Ratio 0.6 (1.1-1.8); Alkaline Phosphatase 190 U/L (46-116); Anion Gap 12.6 mEq/L (5-15); Aspartate Amino Transferase 22 U/L (15-37); Bilirubin,Total 0.9 mg/dL (0.2-1.0); Blood Urea Nitrogen 28 mg/dL (7-18); Calcium 8.1 mg/dL (8.5-10.1); Carbon Dioxide 23 mmol/L (21.0-32.0); Chloride 99 mmol/L (98-107); Creatinine Clearance Estimated 36 mL/min (50-200); Creatinine,Serum 2.02 mg/dL (0.70-1.30); Estimated Glomerular Filt Rate 32 ml/min (>60); GFR (African American) 39 ML/MIN (>60); Globulin 3.5 gm/dl (1.3-3.2); Glucose 135 mg/dL (74-106); Potassium 4.6 mmoL/L (3.5-5.1); Sodium 130 mmol/L (136-145); Total Protein,Serum 5.5 gm/dL (6.4-8.2)
[2018-11-18 08:00] VITALS: BP 119/47; PULSE 89; RESP 16; TEMP 36.7; O2SAT 95
--- NOTE | 2018-11-18 08:48 | HMH.DCSUM ---
General - General Admission date:: 11/16/18 Discharge date: 11/18/18 HPI HPI: 78 year old male with a h/o diabetes, CAD, aortic stenosis, diastolic heart failure, anemia, CRI, COPD, Non Hodgkins Lymphoma and chronic low back presented to PCP office with intractable back pain, LE edema and SOA. Patient is followed by Dr. Tellez who performed lumbar epidural injection approx 2 weeks ago. Two days after the injection patient had increase in low back pain that radiates down anterior left anterior thigh. States I can't eat. I can't sleep because it hurts so bad. The only relief he gets occurs when he sits in chair and leans forward. Over the last week he has also had increase in LE edema and SOA. States I can't even get my shoes on. Denies any recent medication changes. Contributes SOA to his back pain. In the office, he was noted to have significant LE edema, dyspnea with minimal exertion and 11 pound weight gain in 10 days. Patient was admitted to [facility] for pain management consult and further evaluation. Hospital Course Hospital Course: Patient was admitted, given IV fluids. Tolerated this well and her kidney function improved. Patient also improved with changing his pain medication from hydrocodone to Percocet which seemed to improve his bone and cancer related pain nicely. After hydration his blood counts did not worsen. Plan will be to discharge home today with regular diet, follow-up with his oncologist and transition to oxycodone instead of hydrocodone for pain. We will see him in the office in close follow-up over the next week. Objective Vital signs: Temp Pulse Resp BP Pulse Ox 98.0 F 87 18 116/60 93 L 11/18/18 04:00 11/18/18 04:00 11/18/18 04:00 11/18/18 04:00 11/18/18 04:00 Narrative: Unchanged exam from admission. Good air movement in the lungs. Abdomen soft. Able to get up and walk around the hospital room in an improved fashion as his pain is improved. Good fluid status. Alert, oriented x3. Results Labs on day of discharge: Labs from last 24 hours 11/18/18 11/18/18 11/18/18 07:15 07:15 05:58 WBC 7.9 RBC 2.45 L Hgb 8.6 L Hct 24.8 L MCV 101.2 H MCH 35.1 H MCHC 34.7 RDW 20.2 H Plt Count 201 MPV 8.1 Neut % (Auto) 78.4 Lymph % (Auto) 13.0 [place] % (Auto) 5.9 Eos % (Auto) 2.4 Baso % (Auto) 0.3 Neut # (Auto) 6.2 Lymph # (Auto) 1.0 [place] # (Auto) 0.5 Eos # (Auto) 0.2 Baso # (Auto) 0.0 Sodium 130 L Potassium 4.6 Chloride 99 Carbon Dioxide 23 Anion Gap 12.6 BUN 28 H Creatinine 2.02 H Estimated Creat Clear 36 Estimated GFR 32 L Est GFR ( Amer) 39 L Glucose 135 H D POC Glucose 143 H Calcium 8.1 L Total Bilirubin 0.9 AST 22 ALT 17 Alkaline Phosphatase 190 H Total Protein 5.5 L Albumin 2.0 L Globulin 3.5 H Albumin/Globulin Ratio 0.6 L 11/17/18 11/17/18 11/17/18 20:26 16:37 10:44 WBC RBC Hgb Hct MCV MCH MCHC RDW Plt Count MPV Neut % (Auto) Lymph % (Auto) [place] % (Auto) Eos % (Auto) Baso % (Auto) Neut # (Auto) Lymph # (Auto) [place] # (Auto) Eos # (Auto) Baso # (Auto) Sodium Potassium Chloride Carbon Dioxide Anion Gap BUN Creatinine Estimated Creat Clear Estimated GFR Est GFR ( Amer) Glucose POC Glucose 234 H 122 H 272 H Calcium Total Bilirubin AST ALT Alkaline Phosphatase Total Protein Albumin Globulin Albumin/Globulin Ratio 11/17/18 11/17/18 09:30 09:30 WBC 8.6 RBC 2.57 L Hgb 8.9 L Hct 26.0 L MCV 101.1 H MCH 34.6 H MCHC 34.2 RDW 20.3 H Plt Count 192 MPV 8.5 Neut % (Auto) 83.1 H Lymph % (Auto) 9.1 L [place] % (Auto) 5.3 Eos % (Auto) 2.0 Baso % (Auto) 0.5 Neut # (Auto) 7.1 Lymph # (Auto) 0.8 [place] # (Auto) 0.5 Eos # (Auto)
--- NOTE | 2018-11-18 08:52 | P.DS_ITS ---
General - General Admission date:: 11/16/18 Discharge date: 11/18/18 HPI HPI: 78 year old male with a h/o diabetes, CAD, aortic stenosis, diastolic heart failure, anemia, CRI, COPD, Non Hodgkins Lymphoma and chronic low back presented to PCP office with intractable back pain, LE edema and SOA. Patient is followed by Dr. Tellez who performed lumbar epidural injection approx 2 weeks ago. Two days after the injection patient had increase in low back pain that radiates down anterior left anterior thigh. States I can't eat. I can't sleep because it hurts so bad. The only relief he gets occurs when he sits in chair and leans forward. Over the last week he has also had increase in LE edema and SOA. States I can't even get my shoes on. Denies any recent medication changes. Contributes SOA to his back pain. In the office, he was noted to have significant LE edema, dyspnea with minimal exertion and 11 pound weight gain in 10 days. Patient was admitted to [facility] for pain management consult and further evaluation. Hospital Course Hospital Course: Patient was admitted, given IV fluids. Tolerated this well and her kidney function improved. Patient also improved with changing his pain medication from hydrocodone to Percocet which seemed to improve his bone and cancer related pain nicely. After hydration his blood counts did not worsen. Plan will be to discharge home today with regular diet, follow-up with his oncologist and transition to oxycodone instead of hydrocodone for pain. We will see him in the office in close follow-up over the next week. Objective Vital signs: Temp Pulse Resp BP Pulse Ox 98.0 F 87 18 116/60 93 L 11/18/18 04:00 11/18/18 04:00 11/18/18 04:00 11/18/18 04:00 11/18/18 04:00 Narrative: Unchanged exam from admission. Good air movement in the lungs. Abdomen soft. Able to get up and walk around the hospital room in an improved fashion as his pain is improved. Good fluid status. Alert, oriented x3. Results Labs on day of discharge: Labs from last 24 hours 11/18/18 11/18/18 11/18/18 07:15 07:15 05:58 WBC 7.9 RBC 2.45 L Hgb 8.6 L Hct 24.8 L MCV 101.2 H MCH 35.1 H MCHC 34.7 RDW 20.2 H Plt Count 201 MPV 8.1 Neut % (Auto) 78.4 Lymph % (Auto) 13.0 Edgar % (Auto) 5.9 Eos % (Auto) 2.4 Baso % (Auto) 0.3 Neut # (Auto) 6.2 Lymph # (Auto) 1.0 Edgar # (Auto) 0.5 Eos # (Auto) 0.2 Baso # (Auto) 0.0 Sodium 130 L Potassium 4.6 Chloride 99 Carbon Dioxide 23 Anion Gap 12.6 BUN 28 H Creatinine 2.02 H Estimated Creat Clear 36 Estimated GFR 32 L Est GFR ( Amer) 39 L Glucose 135 H D POC Glucose 143 H Calcium 8.1 L Total Bilirubin 0.9 AST 22 ALT 17 Alkaline Phosphatase 190 H Total Protein 5.5 L Albumin 2.0 L Globulin 3.5 H Albumin/Globulin Ratio 0.6 L 11/17/18 11/17/18 11/17/18 20:26 16:37 10:44 WBC RBC Hgb Hct MCV MCH M
[2018-11-18 09:28] VITALS: O2SAT 95
--- NOTE | 2018-11-18 10:57 | HMH.PHAINT ---
DISCHARGE COUNSELING COMPLETED ON PATIENT. PAIN MEDICATION WAS SWITCH FROM TRAMADOL TO PERCOCET. PATIENT IS TO TAKE THREE TIMES DAILY NEEDED. VERIFIED THAT PRESCRIPTION WAS PRINTED OFF. PATIENT VERBALIZED UNDERSTANDING AND HAD NO QUESTIONS. -DINH DESAID
== END 2018-11-18 10:09 | disposition home or self-care (01) ==
PROVIDERS: Nurse Practitioner Family; Admitting Provider Internal Medicine Adolescent Medicine; PCP Internal Medicine Adolescent Medicine; Visit Provider Internal Medicine Adolescent Medicine
DX: G89.3 Neoplasm related pain (acute) (chronic) (principal); C85.90 Non-Hodgkin lymphoma, unspecified, unspecified site; S22.000A Wedge compression fracture of unspecified thoracic vertebra, initial encounter for closed fracture; Z91.81 History of falling; I11.0 Hypertensive heart disease with heart failure; I50.33 Acute on chronic diastolic (congestive) heart failure; Z95.5 Presence of coronary angioplasty implant and graft; I25.2 Old myocardial infarction; M54.16 Radiculopathy, lumbar region; M51.36 Other intervertebral disc degeneration, lumbar region; D64.9 Anemia, unspecified; E11.9 Type 2 diabetes mellitus without complications; Z79.891 Long term (current) use of opiate analgesic; Z79.899 Other long term (current) drug therapy
CPT/HCPCS: G0379; 36415; 71046; 72131; 80053; 82962; 85025; 93306; G0378

== ENCOUNTER → 2018-11-30 14:58 | Outpatient (CLI) | payer MEDICARE, SELFPAY | PROVIDERS: Visit Provider Anesthesiology | DX: M54.9 Dorsalgia, unspecified (principal) ==